=== PATIENT | female | born 1975 | race Caucasian/White ===

== ENCOUNTER 2020-07-24 11:32 | Outpatient (REF) | payer MEDICARE, MEDICAID, SELFPAY | END 2020-07-24 11:33 | disposition home or self-care (01) | LOC: HO.LAB 11:32 | PROVIDERS: PCP Internal Medicine; Visit Provider Internal Medicine | DX: Z20.828 Contact with and (suspected) exposure to other viral communicable diseases (principal) | CPT/HCPCS: C9803; U0003 ==

== ENCOUNTER → 2020-09-11 14:04 | Outpatient (BNVA) | payer MEDICARE, MEDICAID, SELFPAY | PROVIDERS: PCP Internal Medicine; Visit Provider Student in an Organized Health Care Education/Training Program | DX: Z13.89 Encounter for screening for other disorder (principal) | CPT/HCPCS: Q3014 ==

== ENCOUNTER 2020-10-01 09:16 | Outpatient (REF) | payer MEDICARE, MEDICAID, SELFPAY ==
[2020-10-01 10:15] LABS: Blood Urea Nitrogen 18 mg/dL (9-16); Estimated Glomerular Filt Rate > 60
== END 2020-10-01 09:17 | disposition home or self-care (01) ==
LOC: HO.LAB 09:16
PROVIDERS: PCP Internal Medicine; Visit Provider Otolaryngology
DX: Z01.812 Encounter for preprocedural laboratory examination (principal); D33.3 Benign neoplasm of cranial nerves
CPT/HCPCS: 36415; 82565; 84520

== ENCOUNTER 2020-10-04 09:26 | Outpatient (REF) | payer MEDICARE, MEDICAID, SELFPAY ==
--- NOTE | 2020-10-04 09:29 | MR_ITS ---
EXAMINATION: MR BRAIN WITHOUT AND WITH CONTRAST CLINICAL INFORMATION: Tinnitus and headache. Acoustic neuroma. COMPARISON: CT scan of the head and IAC 05/20/2017. TECHNIQUE: Multiplanar, multisequence MRI of the brain was obtained before and after the intravenous administration of 6.5 mL Gadavist. FINDINGS: The VII and VIII cranial nerve complexes are normal in course and caliber. No signal abnormality is visualized within the inner ear structures on the precontrast axial T1-weighted sequence. Fluid signal is preserved within the cochleae, semicircular canals, and vestibule on the high-resolution axial FIESTA sequence. No cerebellopontine angle lesion is noted. There is no abnormal labyrinthine or intracanalicular enhancement on postcontrast imaging. No diffusion abnormalities are identified to suggest an acute or subacute infarct. No mass effect or midline shift is seen. The ventricles and sulci are mildly commensurately prominent. There is a cavum velum interpositum. There are a few scattered nonspecific foci of increased FLAIR signal in the deep white matter. No extra-axial fluid collections are seen. The brainstem and cerebellum are normal. On postcontrast imaging, there is no abnormal parenchymal or leptomeningeal enhancement. No pathologic magnetic susceptibility artifact is identified on the gradient refocused acquisition. The craniovertebral junction, marrow signal, and midline structures are normal. The major intracranial flow-voids at the level of the [place] are preserved. The dural venous sinus flow-voids are maintained. The mastoid air cells and paranasal sinuses are well-aerated. MR/MR head/brain wo/w con IMPRESSION: 1. The CP angles and internal auditory canals appear normal bilaterally. 2. There are no acute bleeds or infarcts. There are no masses or areas of abnormal enhancement.
== END 2020-10-04 09:27 | disposition home or self-care (01) ==
LOC: HO.MRI 09:26
PROVIDERS: PCP Internal Medicine; Visit Provider Otolaryngology
DX: H93.11 Tinnitus, right ear (principal); H81.4 Vertigo of central origin; G44.209 Tension-type headache, unspecified, not intractable; D33.3 Benign neoplasm of cranial nerves
CPT/HCPCS: 70553; A9585

== ENCOUNTER 2021-05-08 12:23 | Outpatient (REF) | payer MEDICARE, MEDICAID, SELFPAY ==
[2021-05-08 13:49] LABS: Alanine Aminotransferase 25 U/L (0-31); Albumin Level 4.5 g/dL (3.5-5.0); Alkaline Phosphatase 83 U/L (39-117); Anion Gap 10 (12-20); Aspartate Amino Transferase 21 U/L (5-31); Bilirubin Total 0.5 mg/dL (0.0-1.0); Blood Urea Nitrogen 15 mg/dL (9-16); Carbon Dioxide 26 mmol/L (22-29); Chloride 106 mmol/L (96-108); Estimated Glomerular Filt Rate > 60; Glucose Random 79 mg/dL (60-115); Potassium 4.2 mmol/L (3.3-5.1); Sodium 138 mmol/L (135-145); Total Protein 6.9 g/dL (6.5-8.0)
== END 2021-05-08 12:24 | disposition home or self-care (01) ==
LOC: HO.LAB 12:23
PROVIDERS: PCP Internal Medicine; Visit Provider Nurse Practitioner Family
DX: M79.7 Fibromyalgia (principal); H93.19 Tinnitus, unspecified ear
CPT/HCPCS: 36415; 80053; 99212

== ENCOUNTER → 2021-12-08 09:36 | Outpatient (BNVA) | payer MEDICARE, MEDICAID, SELFPAY | PROVIDERS: PCP Internal Medicine; Visit Provider Nurse Practitioner Family | DX: M79.7 Fibromyalgia (principal); H93.19 Tinnitus, unspecified ear; Z79.899 Other long term (current) drug therapy | CPT/HCPCS: 99212 ==

== ENCOUNTER 2022-03-12 11:24 | Outpatient (REF) | payer MEDICARE, MEDICAID, SELFPAY ==
[2022-03-12 13:07] LABS: Alanine Aminotransferase 25 U/L (0-31); Albumin Level 4.3 g/dL (3.5-5.0); Alkaline Phosphatase 70 U/L (39-117); Anion Gap 7 (12-20); Aspartate Amino Transferase 21 U/L (5-31); Bilirubin Total 0.4 mg/dL (0.0-1.0); Blood Urea Nitrogen 10 mg/dL (9-16); Calcium 8.9 mg/dL (8.4-10.2); Carbon Dioxide 27 mmol/L (22-29); Chloride 109 mmol/L (96-108); Estimated Glomerular Filt Rate > 60; Glucose Random 87 mg/dL (60-115); Potassium 4.4 mmol/L (3.3-5.1); Sodium 139 mmol/L (135-145); Total Protein 6.6 g/dL (6.5-8.0)
== END 2022-03-12 11:25 | disposition home or self-care (01) ==
LOC: HO.LAB 11:24
PROVIDERS: Visit Provider Nurse Practitioner Family
DX: M79.7 Fibromyalgia (principal)
CPT/HCPCS: 36415; 80053

== ENCOUNTER → 2022-08-10 09:05 | Outpatient (BNVA) | payer OTHER, SELFPAY | PROVIDERS: PCP Internal Medicine; Referring Provider Internal Medicine; Visit Provider Nurse Practitioner Family | DX: M79.7 Fibromyalgia (principal) | CPT/HCPCS: 99212 ==

== ENCOUNTER 2023-02-16 15:08 | Outpatient (REF) | payer OTHER, SELFPAY ==
--- NOTE | ~2023-02-16 | XR_ITS ---
EXAMINATION: XR SINUSES CLINICAL INFORMATION: Sinusitis COMPARISON: None available. TECHNIQUE: 3 views of the sinuses were obtained. FINDINGS: Paranasal sinuses appear clear without air-fluid levels. No fractures are identified. No radiodense foreign bodies. XR/XR sinus min 3V IMPRESSION: Unremarkable examination.
== END 2023-02-16 15:09 | disposition home or self-care (01) ==
LOC: HO.XRAY 15:08
PROVIDERS: Visit Provider Otolaryngology
DX: J32.9 Chronic sinusitis, unspecified (principal)
CPT/HCPCS: 70220

== ENCOUNTER 2023-04-22 14:39 | Outpatient (AMB) | payer OTHER, SELFPAY ==
[2023-04-22 14:41] VITALS: BP 84/70; PULSE 71; TEMP 36.5; O2SAT 98; BMI 31.3
--- NOTE | 2023-04-22 14:56 | A.OFFVIS_ITS ---
Intake Vital Signs 04/22/23 14:41 Height 4 ft 11 in Weight 155 lb 3.287 oz BMI 31.3 BP 84/70 L Blood Pressure Location Rt brachial Position Sitting Pulse 71 Pulse Source Pulse Oximeter Temp 97.7 F Temp Source Skin Pulse Oximetry (%) 98 Intake Visit Reasons: fibromyalgia Intake Note: Here for fibromyalgia follow up. c/o right lower back pain radiating down to foot x 1.5 wks Cycle Repairer Required: No Accompanied by: Self / Same As Patient Allergies oxcarbazepine [Trileptal] Allergy (Intermediate, Verified 04/22/23 14:47) hives sumatriptan [Imitrex] Allergy (Intermediate, Verified 04/22/23 14:47) increased heart rate venlafaxine Allergy (Intermediate, Verified 04/22/23 14:47) increased heart rate Cortisone Allergy (Intermediate, Uncoded 04/22/23 14:47) visual disturbance Relpax Allergy (Intermediate, Uncoded 04/22/23 14:47) throat swelling Medication List - Last Reconciled 04/22/23 by Suresh Zhu MD albuterol sulfate 90 mcg/actuation 2 puffs inhalation Q4H PRN ascorbic acid (vitamin C) 500 mg PO DAILY bupropion HCl (Wellbutrin XL) 300 mg PO QAM bupropion HCl 150 mg PO QAM cetirizine 10 mg PO DAILY cholecalciferol (vitamin D3) 50 mcg PO DAILY diazepam 5 mg PO BID PRN docusate sodium 100 mg PO BID estradiol 1 patch transdermal 2XW famotidine (Pepcid) 20 mg PO BEDTIME PRN fluticasone propionate 50 mcg/actuation 2 sprays intranasal DAILY PRN gabapentin 300 mg PO TID galcanezumab-gnlm (Emgality Pen) mg subcut levothyroxine 50 mcg PO DAILY magnesium 200 mg PO DAILY medroxyprogesterone 2.5 mg PO DAILY metoclopramide HCl (Reglan) 10 mg PO Q6H PRN omeprazole 40 mg PO DAILY rimegepant (Nurtec ODT) 0 mg PO DAILY PRN tizanidine 4 mg PO BEDTIME PRN HPI HPI Comments History of Present Illness Details This is a 47-year-old female with a past medical history of fibromyalgia presents for follow-up. She was last seen by Vania Borrego 08/2022. Patient states that she is having a right pyriformis flare. Started about 10 days ago. She states that for the last 6-7 years she gets these episodes of right buttock pain that radiates to her thigh and right calf towards her foot. She gets these episodes about 3 times a year. Usually improved with rest and stretches.. She cannot think of any triggers. With regards for fibromyalgia she continues to take gabapentin and tizanidine. She no longer uses tramadol as it does not help PFSH Medical History Anal fissure and fistula Fibromyalgia History of abnormal cervical Pap smear Surgical History H/O foot surgery Hx of tubal ligation Family History Father HTN (hypertension) Hypothyroid Diabetes Hyperlipidemia Mother HTN (hypertension) Diabetes Hyperlipidemia Social History Household Members: Children Housing: House Alcohol intake: never Patient Tobacco Use Status: Never used Tobacco [place] [facility] [place]gias, Reports radiating pain into limb and Reports stiffness Physical Exam Vital Signs: Last Vital Signs Temp 97.7 F 04/22/23 14:41 Pulse 71 04/22/23 14:41 BP 84/70 L 04/22/23 14:41 Pulse Ox 98 04/22/23 14:41 BMI result Body Mass Index 31.3 Const General: cooperative, healthy appearing and comfortable Nutritional Appearance: overweight Orientation/consciousness: patient oriented x3 Limitations: no limitations HEENT Head: Yes normocephalic and Yes atraumatic Mouth: moist mucous membranes Resp Effort & Inspection: normal respiratory effort and able to speak in complete sentences Neuro General: patient oriented x3 Extrem Other: Bilateral her trochanteric bursa area tenderness Negative Vanessa's test bilaterally Diffuse fibromyalgia tender points Assessment & Plan Assessment & Plan (1) Piriformis syndrome of right side: Code(s): G57.01 - Lesion of sciatic nerve, right lower limb Plan: This is a 47-year-old female with fibromyalgia who presents with 1 and half week history of right buttock pain that radiates to her thigh, leg and foot. States that she gets these episodes 3 to 4 times a year and the last 1-3 weeks without a known trigger. Will prescribe a Medrol Dosepak therapeutic trial. Due to recurrence of symptoms, will refer patient to organ grinder (2) Fibromyalgia: Comment: Previous serology in 2017 with normal inflammatory markers, normal complements, negative rheumatoid factor, negative CCP, negative BRINDA, negative double-stranded DNA. Cardiolipin antibodies negative. BASILIA positive 1:80. Code(s): M79.7 - Fibromyalgia Plan: Unchanged. can continue with tizanidine 4 mg nightly and gabapentin 300 mg daily Orders: Referrals Physiatry Referral G57.01 - Lesion of sciatic nerve, right lower limb Medications: New methylprednisolone (Medrol (Emmanuel)) PO PER PKG DIR 21 ea 0RF Coding Level of Care Code Est Pt Level 3 (03402) Diagnoses Piriformis syndrome of right side G57.01 Fibromyalgia M79.7
== END 2023-04-22 15:07 | disposition home or self-care (01) ==
PROVIDERS: PCP Internal Medicine; Visit Provider Student in an Organized Health Care Education/Training Program
DX: G57.01 Lesion of sciatic nerve, right lower limb (principal); M79.7 Fibromyalgia
CPT/HCPCS: 99213

== ENCOUNTER → 2023-04-22 14:39 | Outpatient (BNVA) | payer OTHER, SELFPAY | PROVIDERS: PCP Internal Medicine; Visit Provider Student in an Organized Health Care Education/Training Program | DX: G57.01 Lesion of sciatic nerve, right lower limb (principal); M79.7 Fibromyalgia | CPT/HCPCS: 99212 ==

== ENCOUNTER 2023-05-19 10:19 | Outpatient (AMB) | payer OTHER, SELFPAY ==
[2023-05-19 10:22] VITALS: BMI 31.3
--- NOTE | 2023-05-19 10:22 | A.OFFVIS_ITS ---
Intake Vital Signs 05/19/23 10:22 Height 4 ft 11 in Weight 155 lb BMI 31.3 Intake Visit Reasons: arnp- Lesion of sciatic nerve, right lower limb Intake Note: Leisa is a 47 year old female who presents today as a new patient with complaints of sciatic pain. Hx of fibromyalgia Patient reports that she was recently seen with a television presenter who sent her here. She reports that she has performis syndrome. She was having an active flair up of the right side for about a week , this can happen multiple times a year. She finds that her pain starts in the buttock and radiates down the leg and to the front of the leg and foot. When she has these flairs ups she uses heat application, streching (home PT) and ibuprofen. Allergies oxcarbazepine [Trileptal] Allergy (Intermediate, Verified 04/22/23 14:47) hives sumatriptan [Imitrex] Allergy (Intermediate, Verified 04/22/23 14:47) increased heart rate venlafaxine Allergy (Intermediate, Verified 04/22/23 14:47) increased heart rate Cortisone Allergy (Intermediate, Uncoded 04/22/23 14:47) visual disturbance Relpax Allergy (Intermediate, Uncoded 04/22/23 14:47) throat swelling Medication List - Last Reconciled 05/19/23 by Tonya Wilson MD albuterol sulfate 90 mcg/actuation 2 puffs inhalation Q4H PRN ascorbic acid (vitamin C) 500 mg PO DAILY bupropion HCl (Wellbutrin XL) 300 mg PO QAM bupropion HCl 150 mg PO QAM cetirizine 10 mg PO DAILY cholecalciferol (vitamin D3) 50 mcg PO DAILY diazepam 5 mg PO BID PRN docusate sodium 100 mg PO BID estradiol 1 patch transdermal 2XW famotidine (Pepcid) 20 mg PO BEDTIME PRN fluticasone propionate 50 mcg/actuation 2 sprays intranasal DAILY PRN gabapentin 300 mg PO TID galcanezumab-gnlm (Emgality Pen) mg subcut levothyroxine 50 mcg PO DAILY magnesium 200 mg PO DAILY medroxyprogesterone 2.5 mg PO DAILY metoclopramide HCl (Reglan) 10 mg PO Q6H PRN ondansetron HCl 4 mg PO Q8H PRN pantoprazole 20 mg PO BID rimegepant (Nurtec ODT) 0 mg PO DAILY PRN tizanidine 4 mg PO BEDTIME PRN HPI HPI Comments History of Present Illness Details Referred by Rheumatology. Seen by Dr. Zhu 3 weeks, suspected piriformis syndrome. This would recur a few times a year, lasts a week. Today better already. History of fibromyalgia. No recent imaging, maybe last 9-10 years ago. Can't have steroid injections due to reactions (blurry vision, worsens period, no hives or anaphylaxis). When she was having pain, it was right sided. Not aware of trigger or injury. Points to SI or piriformis, radiates down to calf and foot. Denies numbness. Pain with flexing foot. Treatment done so far: NSAIDs - when there is flare up therapy - last 2 years ago, does home exercises when there is a flare up History of ankle instability. Scheduled for left ATF surgery 06/18/23. Cracking and popping knees and ankles. No current knee pain. [facility] Medical History (Updated 05/19/23 @ 10:47 by Tonya Wilson MD) History of abnormal cervical Pap smear Anal fissure and fistula Fibromyalgia Surgical History Hx of tubal ligation H/O foot surgery Family History Father HTN (hypertension) Hypothyroid Diabetes Hyperlipidemia Mother HTN (hypertension) Diabetes Hyperlipidemia Social History (Updated 05/19/23 @ 10:30 by Tracy Hahn [facility]) Household Members: Children Housing: House Alcohol intake: never Patient Tobacco Use Status: Never used Tobacco Current occupational status: disabled Review of Systems Const All systems reviewed & are unremarkable except as noted in HPI and below Physical Exam Vital Signs: BMI result Body Mass Index 31.3 Constitutional: Patient appears to be in no acute distress, well nourished and well developed. Patient was appropriately conversant and oriented. Good historian. MSK: Tightness in upper trapezius. No specific abnormalities found on inspection of the spine and all extremities. No pain with palpation over the lumbar area. Indicates tender area is close to the right SI joint and vicinity of right piriformis. Lumbar ROM was full. Bilateral hip, knee and ankle ROM WNL. No ligamentous laxity or crepitance. No increased effusion. Straight-leg raising test negative. FABERE test positive right buttocks pain. Piriformis test is mildly positive right. Strength is 5/5 in all muscle groups tested. No increased tone noted. Neurological: Mood appears normal, good affect, and appropriate for the circumstances. Neurologic examination of the upper and lower extremities was nonfocal with intact sensation, muscle stretch reflexes and without focal motor deficits. Cheung?s negative bilaterally. Babinski was down going bilaterally. Clonus was negative. Gait is non-antalgic without loss of balance. Patient was able to perform heel walk and toe walk. Results Reviewed Results Reviewed: 05/19/23 10:57 Lidocaine HCl 2 % MPF [Xylocaine 2 % MPF] 5 ml .ROUTE .[facility] I reviewed records from the following: Rheumatology Dr. Zhu Assessment & Plan Assessment & Plan (1) Piriformis syndrome of right side: Code(s): G57.01 - Lesion of sciatic nerve, right lower limb (2) Sacroiliac joint dysfunction of right side: Code(s): M53.3 - Sacrococcygeal disorders, not elsewhere classified Plan Patient had episode of right piriformis syndrome versus SI joint dysfunction. Pain is now resolved. No neurologic deficits on exam. If pain recurs, usual first-line treatment is ice and NSAIDs. She may try [id number] Lidoderm cream. She may call our office for severe pain and with about possibility of trigger point injection with lidocaine, no steroid. Assessment and plan discussed with patient, and patient was agreeable. All questions were answered thoroughly. Call if with pain or issues or questions. Tonya Wilson MD, ERMI Board Certified, [place] [employer] and Rehabilitation (ABPMR) Board Certified, [place] [employer] Electro[employer]ostic [employer] (ABEM) Coding Level of Care Code New Pt Level 3 (23571) Diagnoses Piriformis syndrome of right side G57.01 Sacroiliac joint dysfunction of right side M53.3
== END 2023-05-19 12:09 | disposition home or self-care (01) ==
PROVIDERS: PCP Internal Medicine; Visit Provider Physical Medicine & Rehabilitation
DX: G57.01 Lesion of sciatic nerve, right lower limb (principal); M53.3 Sacrococcygeal disorders, not elsewhere classified
CPT/HCPCS: 99203

== ENCOUNTER → 2023-05-19 10:19 | Outpatient (BNVA) | payer OTHER, SELFPAY | PROVIDERS: PCP Internal Medicine; Visit Provider Physical Medicine & Rehabilitation ==

== ENCOUNTER 2023-10-07 09:55 | Outpatient (AMB) | payer OTHER, SELFPAY ==
--- NOTE | 2023-10-07 10:06 | A.OFFVIS_ITS ---
Intake Vital Signs 10/07/23 10:09 Height 4 ft 11 in Weight 150 lb 9.211 oz BMI 30.4 BP 112/66 Blood Pressure Location Lt brachial Position Sitting Pulse 83 Pulse Source Pulse Oximeter Pulse Oximetry (%) 98 Oxygen Delivery Method Room Air Intake Visit Reasons: FMS Intake Note: Patient last seen 04/22/23 presents today for follow up. Reports new surgery 06/28/23 ligament repair left ankle done at [facility]. Reports severe muscle spasms went to PCP and [facility] ED x2. PCP prescibed diclofenac and baclofen prn. Creeler Required: No Accompanied by: Self / Same As Patient Allergies oxcarbazepine [Trileptal] Allergy (Intermediate, Verified 10/07/23 10:13) hives sumatriptan [Imitrex] Allergy (Intermediate, Verified 10/07/23 10:13) increased heart rate venlafaxine Allergy (Intermediate, Verified 10/07/23 10:13) increased heart rate Cortisone Allergy (Intermediate, Uncoded 10/07/23 10:13) visual disturbance Relpax Allergy (Intermediate, Uncoded 10/07/23 10:13) throat swelling Medication List - Last Reconciled 10/07/23 by Suresh Zhu MD albuterol sulfate 90 mcg/actuation 2 puffs inhalation Q4H PRN ascorbic acid (vitamin C) 500 mg PO DAILY baclofen 10 mg PO TID bupropion HCl (Wellbutrin XL) 300 mg PO QAM bupropion HCl 150 mg PO QAM cetirizine 10 mg PO DAILY cholecalciferol (vitamin D3) 50 mcg PO DAILY diazepam 5 mg PO BID PRN diclofenac sodium 50 mg PO BID diclofenac sodium 1% topical docusate sodium 100 mg PO BID estradiol 1 patch transdermal 2XW famotidine (Pepcid) 20 mg PO BEDTIME PRN fluticasone propionate 50 mcg/actuation 2 sprays intranasal DAILY PRN gabapentin 300 mg PO TID levothyroxine 50 mcg PO DAILY magnesium 200 mg PO DAILY medroxyprogesterone 2.5 mg PO DAILY metoclopramide HCl (Reglan) 10 mg PO Q6H PRN onabotulinumtoxinA (Botox) intradermal [id number] ondansetron HCl 4 mg PO Q8H PRN pantoprazole 20 mg PO BID tizanidine 4 mg PO BEDTIME PRN ubrogepant (Ubrelvy) mg PO HPI HPI Comments History of Present Illness Details This is a 48-year-old female with fibromyalgia who presents for follow- up. She states that about a month ago she started having abrupt onset of lower back spasms. The pain was so severe. She did not recall any inciting trauma injury or overuse. She went to the emergency room and had an x-ray. She was given NSAIDs and muscle relaxants. She then followed up with her PCP who prescribed her diclofenac and baclofen with some relief. She also states that she had left ankle surgery June/2023 for ligament repair. She is using a cane now. States that today she continues to have bilateral lumbar paraspinal muscle pain and spasms as well as pain in the right upper neck, shoulder area. The pain radiates to her head and shoulders. Patient states that she is having a right pyriformis flare. Started about 10 days ago. She states that for the last 6-7 years she gets these episodes of right buttock pain that radiates to her thigh and right calf towards her foot. She gets these episodes about 3 times a year. Usually improved with rest and stretches.. She cannot think of any triggers. With regards for fibromyalgia she continues to take gabapentin and tizanidine. She no longer uses tramadol as it does not help [facility] Medical History History of abnormal cervical Pap smear Anal fissure and fistula Fibromyalgia Surgical History Hx of tubal ligation H/O foot surgery Family History Father HTN (hypertension) Hypothyroid Diabetes Hyperlipidemia Mother HTN (hypertension) Diabetes Hyperlipidemia Social History Household Members: Children Housing: House Alcohol intake: never Patient Tobacco Use Status: Never used Tobacco Current occupational status: disabled Review of Systems ENT Reports neck pain Musc Reports arthralgias, Reports neck pain, Reports radiating pain into limb and Reports stiffness Physical Exam Vital Signs: Last Vital Signs Pulse 83 10/07/23 10:09 BP 112/66 10/07/23 10:09 Pulse Ox 98 10/07/23 10:09 Oxygen Delivery Method Room Air 10/07/23 10:09 BMI result Body Mass Index 30.4 Const General: cooperative, healthy appearing and comfortable Nutritional Appearance: overweight Orientation/consciousness: patient oriented x3 Limitations: ambulation with cane HEENT Head: Yes normocephalic and Yes atraumatic Mouth: moist mucous membranes Neck Other: Normal neck range of motion Negative Spurling's test bilaterally Taught tender muscle band in the right upper trapezius area. Resp Effort & Inspection: normal respiratory effort and able to speak in complete sentences Back/Spine/Pelvis Other: Bilateral number paraspinal muscles trigger points Neuro General: patient oriented x3 Extrem Other: Diffuse fibromyalgia tender points Office Procedures Joint Injection/Drain Joint Injection/Drain Details: Right trapezius trigger points Bilateral lumbar paraspinal paraspinal trigger points Prep: site was prepped using sterile technique and ethochloride spray was applied Procedure: The patient tolerated the procedure well Coding Details: The area over the myofascial spasm on the right trapezius muscle was prepped with ChloraPrep utilizing sterile technique. After isolating it between two palpating fingertips a 27-gauge needle was placed in the center of the myofascial tenderness and a negative aspiration was performed. Then 2.0 cc of 1% lidocaine was injected. The area over the myofascial spasm on the right lumbar paraspinal muscle and left lumbar paraspinal muscle was prepped with ChloraPrep utilizing sterile technique. After isolating it between two palpating fingertips a 27-gauge needle was placed in the center of the myofascial tenderness and a negative aspiration was performed. Then 2.0 cc of 1% lidocaine was injected into each trigger point. The patient tolerated the procedure well without any apparent difficulties or complications. Additional procedure code (CPT) needed (Trigger point x3) Assessment & Plan Assessment & Plan (1) Fibromyalgia: Comment: Previous serology in 2017 with normal inflammatory markers, normal complements, negative rheumatoid factor, negative CCP, negative BRINDA, negative double-stranded DNA. Cardiolipin antibodies negative. BASILIA positive 1:80. Code(s): M79.7 - Fibromyalgia Plan: Symptoms a little bit worse these days with multiple trigger points. Patient takes tizanidine 4 mg nightly and gabapentin 300 mg 2 to 3 times a day. On the bad days she has been using baclofen and diclofenac prescribed by her PCP. She does not combined baclofen with tizanidine. Follow-up in 4 month (2) Trigger point: Code(s): M79.10 - Myalgia, unspecified site Plan: With patient's consent, trigger points over the right trapezius and bilateral paraspinal muscles were injected with lidocaine today Plan I spent 26 minutes reviewing patient's chart, evaluating patient, counseling patient and documenting in the chart Orders: Orders AMB Joint Injection/Aspiration Today M79.10 - Myalgia, unspecified site Coding Level of Care Code Est Pt Level 4 (81404) Diagnoses Fibromyalgia M79.7 Trigger point M79.10
[2023-10-07 10:09] VITALS: BP 112/66; PULSE 83; O2SAT 98; BMI 30.4
== END 2023-10-07 10:56 | disposition home or self-care (01) ==
PROVIDERS: PCP Internal Medicine; Visit Provider Student in an Organized Health Care Education/Training Program
DX: M79.7 Fibromyalgia (principal)
CPT/HCPCS: 99214

== ENCOUNTER → 2023-10-07 09:55 | Outpatient (BNVA) | payer OTHER, SELFPAY | PROVIDERS: PCP Internal Medicine; Visit Provider Student in an Organized Health Care Education/Training Program | DX: M79.7 Fibromyalgia (principal); M79.18 Myalgia, other site | CPT/HCPCS: 20552; 99212 ==

== ENCOUNTER 2024-01-18 09:35 | Outpatient (REF) | payer OTHER, SELFPAY ==
--- NOTE | ~2024-01-18 | XR_ITS ---
EXAMINATION: XR LUMBOSACRAL SPINE CLINICAL INFORMATION: Dorsalgia, unspecified COMPARISON: None available. TECHNIQUE: Three views of the lumbosacral spine. FINDINGS: There 5 nonrib-bearing lumbar-type vertebral bodies. There is prominence of the transverse processes of L5. The height of the vertebral bodies is well-maintained. There is minimal loss of disc space height at L3-L4. There is no spondylolisthesis. There is a large amount stool within the colon which may be due to constipation. XR/XR lumbar spine 2-3V IMPRESSION: 1. Minimal degenerative disc disease at L3-L4. 2. No acute bony abnormality. 3. Constipation.
--- NOTE | ~2024-01-18 | XR_ITS ---
EXAMINATION: XR SACROILIAC JOINTS CLINICAL INFORMATION: Pain COMPARISON: None available. TECHNIQUE: 3 views of the sacroiliac joints FINDINGS: Bones and soft tissues are normal. No fracture. Alignment is anatomic. Sacroiliac joint spaces are well-maintained without erosions or surrounding sclerosis. XR/XR sacroiliac joint min 3V IMPRESSION: Normal sacroiliac joints.
== END 2024-01-18 09:36 | disposition home or self-care (01) ==
LOC: HO.HOSX 09:35
PROVIDERS: PCP Internal Medicine; Visit Provider Physical Medicine & Rehabilitation
DX: M53.3 Sacrococcygeal disorders, not elsewhere classified (principal); M54.16 Radiculopathy, lumbar region
CPT/HCPCS: 72100; 72202; 99212

== ENCOUNTER 2024-01-18 09:35 | Outpatient (AMB) | payer OTHER, SELFPAY ==
--- NOTE | 2024-01-18 09:47 | A.OFFVIS_ITS ---
Vital Signs 01/18/24 09:55 Height 4 ft 11 in Weight 150 lb BMI 30.3 Intake Visit Reasons: OV-Lesion of sciatic nerve, right lower limb Intake Note: Leisa is a 47 year old female who presents today for a follow up of piriformis syndrome of right side. Patient reports that she was having a flare up last week however she has felt an improvement in her pain. States she is currently not in pain however she continues to have a discomfort that travel down the lateral aspect of leg. Finds that ibuprofen and at home stretching provided her with some relief. Allergies oxcarbazepine [Trileptal] Allergy (Intermediate, Verified 01/18/24 09:55) hives sumatriptan [Imitrex] Allergy (Intermediate, Verified 01/18/24 09:55) increased heart rate venlafaxine Allergy (Intermediate, Verified 01/18/24 09:55) increased heart rate Cortisone Allergy (Intermediate, Uncoded 01/18/24 09:55) visual disturbance Relpax Allergy (Intermediate, Uncoded 01/18/24 09:55) throat swelling Medication List - Last Reconciled 01/18/24 by Tonya Wilson MD albuterol sulfate 90 mcg/actuation 2 puffs inhalation Q4H PRN ascorbic acid (vitamin C) 500 mg PO DAILY baclofen 10 mg PO TID bupropion HCl XL (Wellbutrin XL) 300 mg PO QAM bupropion HCl XL 150 mg PO QAM cetirizine 10 mg PO DAILY cholecalciferol (vitamin D3) 50 mcg PO DAILY diazepam 5 mg PO BID PRN diclofenac sodium 50 mg PO BID diclofenac sodium 1% topical docusate sodium 100 mg PO BID estradiol 1 patch transdermal 2XW famotidine (Pepcid) 20 mg PO BEDTIME PRN fluticasone propionate 50 mcg/actuation 2 sprays intranasal DAILY PRN gabapentin 300 mg PO TID levothyroxine 50 mcg PO DAILY magnesium 200 mg PO DAILY medroxyprogesterone 2.5 mg PO DAILY metoclopramide HCl (Reglan) 10 mg PO Q6H PRN onabotulinumtoxinA (Botox) intradermal [id number] ondansetron HCl 4 mg PO Q8H PRN pantoprazole 20 mg PO BID tizanidine 4 mg PO BEDTIME PRN ubrogepant (Ubrelvy) mg PO HPI Comments Details: Referred by Rheumatology. Seen by Dr. Zhu who suspected piriformis syndrome. By the time I saw her, patient was no longer having pain. It was right sided. Not aware of trigger or injury. Points to SI or piriformis, radiates down to calf and foot. Denied numbness. History of fibromyalgia. Can't have steroid injections due to reactions (blurry vision, worsens period, no hives or anaphylaxis). History of ankle instability. Reports new surgery 06/28/23 ligament repair left ankle done at [facility]. ER visits from lower back axial pain last August, had gone to ER. Completed PT, referred by PCP. Treated for lower back and hip. She had seen rheumatology last October - trigger point injections to trapezius and lumbar paraspinals were done. Patient says that the back pain at that time was just aches show. Had episode last week from right SI/buttocks area that radiates to right foot. Pain improved but discomfort on right leg. On separate issue, been having tremors on right hand and right leg. PCP has ordered MRI brain to rule out MS, being done tomorrow. Also sees Chiropractor for the upper/lower back pain. [facility] Medical History History of abnormal cervical Pap smear Anal fissure and fistula Fibromyalgia Surgical History Hx of tubal ligation H/O foot surgery Family History Father HTN (hypertension) Hypothyroid Diabetes Hyperlipidemia Mother HTN (hypertension) Diabetes Hyperlipidemia Social History Household Members: Children Housing: House Alcohol intake: never Patient Tobacco Use Status: Never used Tobacco Current occupational status: disabled Physical Exam Vital Signs: BMI result Body Mass Index 30.3 Constitutional: Patient appears to be in no acute distress, well nourished and well developed. Patient was appropriately conversant and oriented. Good historian. MSK: Right SI joint tender. Right piriformis tender. Slight tenderness over ITB. Lumbar ROM was full. Bilateral hip, knee and ankle ROM WNL. No ligamentous laxity or crepitance. No increased effusion. Straight-leg raising test negative. Strength is 5/5 in all muscle groups tested. No increased tone noted. Neurological: Mood appears normal, good affect, and appropriate for the circumstances. Neurologic examination of the upper and lower extremities was nonfocal with intact sensation, muscle stretch reflexes and without focal motor deficits. Babinski was down going bilaterally. Clonus was negative. Gait is non-antalgic without loss of balance. Results Reviewed Results Reviewed: I reviewed records from the following: Rheumatology Dr. Zhu Assessment & Plan Assessment & Plan (1) Right lumbar radiculitis: Code(s): M54.16 - Radiculopathy, lumbar region Category: Medical (2) Sacroiliac joint dysfunction of right side: Code(s): M53.3 - Sacrococcygeal disorders, not elsewhere classified Category: Medical Plan Area of pain is on right SI region, radiating to piriformis/gluteus, down to ITB. Discussed with patient that this radiation pattern is as expected with SI joint dysfunction. I do want to rule out lumbar radiculitis. Sending for x-ray lumbar spine to look at L5-S1 disc space. If there is decreased disc space that could be attributed to right L5 radiculitis or disc herniation, then we will need an MRI. If x-ray is negative for such, then most likely diagnosis is truly SI joint dysfunction. For which we might consider SI joint injection under pain management. Also getting x-ray of SI joint/pelvis to rule out inflammation or arthritis on the joint itself. Continue chiropractor. Gave her a list of exercises she can do at home. PCP has ordered MRI brain for other issues. I did mention injection to her, but on chart review noted that she has had poor reactions to injections in the past. If we are to consider injections, we will need discussion with patient 1st. Assessment and plan discussed with patient, and patient was agreeable. All questions were answered thoroughly. We will touch base with patient through patient portal. Tonya Wilson MD, REMI Board Certified, [place] [employer] and Rehabilitation (ABPMR) Board Certified, [place] Board [employer] Electrodiagnostic Medicine (ABEM) Orders: Orders XR lumbar spine 2-3V Today M53.3 - Sacrococcygeal disorders, not elsewhere classified, M54.16 - Radiculopathy, lumbar region, M54.9 - Dorsalgia, unspecified XR sacroiliac joint min 3V Today M53.3 - Sacrococcygeal disorders, not elsewhere classified, M54.16 - Radiculopathy, lumbar region Coding Level of Care Code Est Pt Level 4 (62894) Diagnoses Right lumbar radiculitis M54.16 Sacroiliac joint dysfunction of right side M53.3
[2024-01-18 09:55] VITALS: BMI 30.3
== END 2024-01-18 10:57 | disposition home or self-care (01) ==
PROVIDERS: PCP Internal Medicine; Visit Provider Physical Medicine & Rehabilitation
DX: M54.16 Radiculopathy, lumbar region (principal); M53.3 Sacrococcygeal disorders, not elsewhere classified
CPT/HCPCS: 99213

== ENCOUNTER 2024-02-08 09:00 | Outpatient (AMB) | payer OTHER, SELFPAY ==
[2024-02-08 09:22] VITALS: BP 108/66; PULSE 71; O2SAT 98; BMI 31.0
--- NOTE | 2024-02-08 09:22 | A.OFFVIS_ITS ---
Vital Signs 02/08/24 09:22 Height 4 ft 11 in Weight 153 lb 7.068 oz BMI 31.0 BP 108/66 Blood Pressure Location Rt brachial Position Sitting Pulse 71 Pulse Source Pulse Oximeter Pulse Oximetry (%) 98 Oxygen Delivery Method Room Air Intake Visit Reasons: FMS Intake Note: Reports tremors and facial numbness on R side, mild vision changes x2 months. Right shoulder pain [employer] Professor Required: No Accompanied by: Self / Same As Patient Allergies oxcarbazepine [Trileptal] Allergy (Intermediate, Verified 02/08/24 09:34) hives sumatriptan [Imitrex] Allergy (Intermediate, Verified 02/08/24 09:34) increased heart rate venlafaxine Allergy (Intermediate, Verified 02/08/24 09:34) increased heart rate Cortisone Allergy (Intermediate, Uncoded 02/08/24 09:34) visual disturbance Relpax Allergy (Intermediate, Uncoded 02/08/24 09:34) throat swelling Medication List - Last Reconciled 02/08/24 by Suresh Zhu MD albuterol sulfate 90 mcg/actuation 2 puffs inhalation Q4H PRN ascorbic acid (vitamin C) 500 mg PO DAILY bupropion HCl XL (Wellbutrin XL) 300 mg PO QAM bupropion HCl XL 150 mg PO QAM cetirizine 10 mg PO DAILY cholecalciferol (vitamin D3) 50 mcg PO DAILY diazepam 5 mg PO BID PRN diclofenac sodium 50 mg PO BID diclofenac sodium 1% topical docusate sodium 100 mg PO BID estradiol 1 patch transdermal 2XW famotidine (Pepcid) 20 mg PO BEDTIME PRN fluticasone propionate 50 mcg/actuation 2 sprays intranasal DAILY PRN gabapentin 300 mg PO TID levothyroxine 50 mcg PO DAILY magnesium 200 mg PO DAILY medroxyprogesterone 2.5 mg PO DAILY metoclopramide HCl (Reglan) 10 mg PO Q6H PRN onabotulinumtoxinA (Botox) intradermal [id number] ondansetron HCl 4 mg PO Q8H PRN pantoprazole 20 mg PO BID tizanidine 4 mg PO BEDTIME PRN ubrogepant (Ubrelvy) mg PO HPI Comments Details: This is a 48-year-old female with fibromyalgia who presents for follow-up. She states that over the last 2 months she has been having tremors affecting the right side of her body including her face, her right arm and right lower extrem ity associated with numbness. She stated that her PCP ordered a brain MRI to evaluate for MS and she was told that it was unremarkable. Patient was having a flare-up of her right lower back pain that radiated down her lower extremity. She was evaluated by Dr. Cheatham x-rays of L-spine and SI joints were done and were unremarkable except for arthritic changes at the L-spine. She stated that this pain is better now. Patient had reactions to steroid injections in the past. She also stated that she has been having right shoulder pain recently as well. Patient states that she is having a right pyriformis flare. Started about 10 days ago. She states that for the last 6-7 years she gets these episodes of right buttock pain that radiates to her thigh and right calf towards her foot. She gets these episodes about 3 times a year. Usually improved with rest and stretches.. She cannot think of any triggers. With regards for fibromyalgia she continues to take gabapentin and tizanidine. She no longer uses tramadol as it does not help [facility] Medical History History of abnormal cervical Pap smear Anal fissure and fistula Fibromyalgia Surgical History Hx of tubal ligation H/O foot surgery Family History Father HTN (hypertension) Hypothyroid Diabetes Hyperlipidemia Mother HTN (hypertension) Diabetes Hyperlipidemia Social History Household Members: Children Housing: House Alcohol intake: never Patient Tobacco Use Status: Never used Tobacco Current occupational status: disabled Review of Systems Musc Reports back pain, Reports arthralgias and Reports radiating pain into limb Physical Exam Vital Signs: Last Vital Signs Pulse 71 02/08/24 09:22 BP 108/66 02/08/24 09:22 Pulse Ox 98 02/08/24 09:22 Oxygen Delivery Method Room Air 02/08/24 09:22 BMI result Body Mass Index 31.0 Const General: cooperative, healthy appearing and comfortable Nutritional Appearance: overweight Orientation/consciousness: patient oriented x3 Limitations: ambulation with cane HEENT Head: Yes normocephalic and Yes atraumatic Mouth: moist mucous membranes Neck Other: Normal neck range of motion Resp Effort & Inspection: normal respiratory effort and able to speak in complete sentences Neuro General: patient oriented x3 Extrem Other: Multiple fibromyalgia tender points Normal range of motion of shoulders Negative rotator cuff provocative maneuvers bilaterally Negative Speed's test bilaterally Right lower lumbar paraspinal muscle tenderness Positive straight leg raise test on the right Assessment & Plan Assessment & Plan (1) Fibromyalgia: Comment: Previous serology in 2017 with normal inflammatory markers, normal complements, negative rheumatoid factor, negative CCP, negative BRINDA, negative double-stranded DNA. Cardiolipin antibodies negative. BASILIA positive 1:80. Code(s): M79.7 - Fibromyalgia Category: Medical Plan: Continue with gabapentin 300 mg t.i.d. and tizanidine 4 mg nightly as needed. (2) Right lumbar radiculitis: Code(s): M54.16 - Radiculopathy, lumbar region Category: Medical Plan: Symptoms improved now after physical therapy. Patient stated that she had side effects to steroid injections in the past. (3) Tremors of nervous system: Code(s): R25.1 - Tremor, unspecified Category: Medical Plan: Patient reporting symptoms of tremors affecting the right side of her body for approximately 2 months. Per patient a brain MRI was done and was negative. Consider neurology evaluation Plan I spent 26 minutes reviewing patient's chart, evaluating patient, counseling patient and documenting in the chart Coding Level of Care Code Est Pt Level 3 (84167) Diagnoses Fibromyalgia M79.7 Right lumbar radiculitis M54.16 Tremors of nervous system R25.1
== END 2024-02-08 09:45 | disposition home or self-care (01) ==
PROVIDERS: PCP Internal Medicine; Visit Provider Student in an Organized Health Care Education/Training Program
DX: M79.7 Fibromyalgia (principal); M54.16 Radiculopathy, lumbar region; R25.1 Tremor, unspecified
CPT/HCPCS: 99213

== ENCOUNTER → 2024-02-08 09:00 | Outpatient (BNVA) | payer OTHER, SELFPAY | PROVIDERS: PCP Internal Medicine; Visit Provider Student in an Organized Health Care Education/Training Program | DX: M79.7 Fibromyalgia (principal); M54.16 Radiculopathy, lumbar region; R25.1 Tremor, unspecified; Z79.899 Other long term (current) drug therapy | CPT/HCPCS: 99212 ==

== ENCOUNTER 2024-02-22 08:59 | Outpatient (AMB) | payer OTHER, SELFPAY ==
--- NOTE | 2024-02-22 09:02 | A.OFFVIS_ITS ---
Vital Signs 02/22/24 09:11 Height 4 ft 11 in Weight 153 lb BMI 30.9 Intake Visit Reasons: OV - right SI joint Intake Note: Leisa is a 48 year old female who presents today for follow up on right lumbar radiculitis and sacroiliac joint dysfunction of right side. Patient reports intermittent throbbing pain that radiates down the lateral aspect of leg to her foot however currently she has no pain. Allergies oxcarbazepine [Trileptal] Allergy (Intermediate, Verified 02/22/24 09:10) hives sumatriptan [Imitrex] Allergy (Intermediate, Verified 02/22/24 09:10) increased heart rate venlafaxine Allergy (Intermediate, Verified 02/22/24 09:10) increased heart rate Cortisone Allergy (Intermediate, Uncoded 02/22/24 09:10) visual disturbance Relpax Allergy (Intermediate, Uncoded 02/22/24 09:10) throat swelling Medication List - Last Reconciled 02/22/24 by Tonya Wilson MD albuterol sulfate 90 mcg/actuation 2 puffs inhalation Q4H PRN ascorbic acid (vitamin C) 500 mg PO DAILY bupropion HCl XL (Wellbutrin XL) 300 mg PO QAM bupropion HCl XL 150 mg PO QAM cetirizine 10 mg PO DAILY cholecalciferol (vitamin D3) 50 mcg PO DAILY diazepam 5 mg PO BID PRN diclofenac sodium 50 mg PO BID diclofenac sodium 1% topical docusate sodium 100 mg PO BID estradiol 1 patch transdermal 2XW famotidine (Pepcid) 20 mg PO BEDTIME PRN fluticasone propionate 50 mcg/actuation 2 sprays intranasal DAILY PRN gabapentin 300 mg PO TID levothyroxine 50 mcg PO DAILY magnesium 200 mg PO DAILY medroxyprogesterone 2.5 mg PO DAILY metoclopramide HCl (Reglan) 10 mg PO Q6H PRN onabotulinumtoxinA (Botox) intradermal [id number] ondansetron HCl 4 mg PO Q8H PRN pantoprazole 20 mg PO BID tizanidine 4 mg PO BEDTIME PRN ubrogepant (Ubrelvy) mg PO HPI Comments Details: Initially referred by Rheumatology. Seen by Dr. Zhu who suspected piriformis syndrome. By the time I saw her, patient was no longer having pain. It was right sided. Not aware of trigger or injury. Points to SI or piriformis, radiates down to calf and foot. Denied numbness. History of fibromyalgia. Can't have steroid injections due to reactions (blurry vision, worsens period, no hives or anaphylaxis). History of ankle instability. Had surgery 06/28/23 ligament repair left ankle done at [facility]. ER visits for lower back axial pain last August, had gone to ER. Completed PT, referred by PCP. Treated for lower back and hip. She had seen rheumatology last October - trigger point injections to trapezius and lumbar paraspinals were done. When I saw her she was having right SI joint pain. No longer painful per patient. No more radiation to leg. She had finished PT and still going to chiro. She complains this time of grinding on right lateral hip, does not radiate to groin, non radicular. She thinks started after surgery last June on left ankle and she was putting more weight on right. [facility] Medical History History of abnormal cervical Pap smear Anal fissure and fistula Fibromyalgia Surgical History Hx of tubal ligation H/O foot surgery Family History (Reviewed 02/08/24 @ 09:34 by Rosibel Bearden [facility]) Father HTN (hypertension) Hypothyroid Diabetes Hyperlipidemia Mother HTN (hypertension) Diabetes Hyperlipidemia Social History Household Members: Children Housing: House Alcohol intake: never Patient Tobacco Use Status: Never used Tobacco Current occupational status: disabled Physical Exam Vital Signs: BMI result Body Mass Index 30.9 Constitutional: Patient appears to be in no acute distress, well nourished and well developed. Patient was appropriately conversant and oriented. Good historian. MSK: Right SI joint tender. Right piriformis tender. Milder tenderness on left SI joint. Right GT slightly tender. Lumbar ROM was full. Bilateral hip, knee and ankle ROM WNL. No ligamentous laxity or crepitance. No increased effusion. Straight-leg raising test negative. Fabere positive right hip pain. Strength is 5/5 in all muscle groups tested. No increased tone noted. Neurological: Mood appears normal, good affect, and appropriate for the circumstances. Neurologic examination of the upper and lower extremities was nonfocal with intact sensation, muscle stretch reflexes and without focal motor deficits. Babinski was down going bilaterally. Clonus was negative. Gait is non-antalgic without loss of balance. Results Reviewed Results Reviewed: Ordering Physician: Tonya Corrales Date of Service: 01/18/24 Procedure(s): XR sacroiliac joint min 3V Accession Number(s): [id number] cc: Idania De La Torre MD; Tonya Mial~ EXAMINATION: XR SACROILIAC JOINTS CLINICAL INFORMATION: Pain COMPARISON: None available. TECHNIQUE: 3 views of the sacroiliac joints FINDINGS: Bones and soft tissues are normal. No fracture. Alignment is anatomic. Sacroiliac joint spaces are well-maintained without erosions or surrounding sclerosis. XR/XR sacroiliac joint min 3V IMPRESSION: Normal sacroiliac joints. Ordering Physician: Tonya Corrales Date of Service: 01/18/24 Procedure(s): XR lumbar spine 2-3V Accession Number(s): [id number] cc: Idania De La Torre MD; Tonya Mial~ EXAMINATION: XR LUMBOSACRAL SPINE CLINICAL INFORMATION: Dorsalgia, unspecified COMPARISON: None available. TECHNIQUE: Three views of the lumbosacral spine. FINDINGS: There 5 nonrib-bearing lumbar-type vertebral bodies. There is prominence of the transverse processes of L5. The height of the vertebral bodies is well-maintained. There is minimal loss of disc space height at L3-L4. There is no spondylolisthesis. There is a large amount stool within the colon which may be due to constipation. XR/XR lumbar spine 2-3V IMPRESSION: 1. Minimal degenerative disc disease at L3-L4. 2. No acute bony abnormality. 3. Constipation. Assessment & Plan Assessment & Plan (1) Sacroiliac joint dysfunction of right side: Code(s): M53.3 - Sacrococcygeal disorders, not elsewhere classified Category: Medical (2) Myofascial pain: Code(s): M79.18 - Myalgia, other site Category: Medical (3) Fibromyalgia: Comment: Previous serology in 2017 with normal inflammatory markers, normal complements, negative rheumatoid factor, negative CCP, negative BRINDA, negative double-stranded DNA. Cardiolipin antibodies negative. BASILIA positive 1:80. Code(s): M79.7 - Fibromyalgia Category: Medical Plan Suspect that pain is still coming from right SI joint. However also having some myofascial pain on gluteus and possibly quadratus lumborum muscles. Recommend trial of trigger point injections. Patient eager to proceed. We will schedule. We might still need to send her for right SI joint injection under pain management if does not improve with chiropractor and trigger point injections. She wants to be seen for separate problem of right shoulder pain, we will schedule. Assessment and plan discussed with patient, and patient was agreeable. All questions were answered thoroughly. Tonya Wilson MD, REMI Board Certified, [place] [employer] and Rehabilitation (ABPMR) Board Certified, [place] [employer] Electrodiagnostic [employer] (ABEM) Coding Level of Care Code Est Pt Level 4 (01399) Diagnoses Sacroiliac joint dysfunction of right side M53.3 Myofascial pain M79.18 Fibromyalgia M79.7
[2024-02-22 09:11] VITALS: BMI 30.9
== END 2024-02-22 09:29 | disposition home or self-care (01) ==
PROVIDERS: PCP Internal Medicine; Visit Provider Physical Medicine & Rehabilitation
DX: M53.3 Sacrococcygeal disorders, not elsewhere classified (principal); M79.7 Fibromyalgia
CPT/HCPCS: 99213

== ENCOUNTER → 2024-02-22 08:59 | Outpatient (BNVA) | payer OTHER, SELFPAY | PROVIDERS: PCP Internal Medicine; Visit Provider Physical Medicine & Rehabilitation | DX: M53.3 Sacrococcygeal disorders, not elsewhere classified (principal); M79.18 Myalgia, other site; M79.7 Fibromyalgia | CPT/HCPCS: 99212 ==

== ENCOUNTER 2024-05-17 09:17 | Outpatient (AMB) | payer OTHER, SELFPAY ==
--- NOTE | 2024-05-17 09:19 | A.OFFVIS_ITS ---
Intake Visit Reasons: New Prob- right shoulder pain Intake Note: Leisa is a 48 year old female who presents today for a new problem visit regarding her right shoulder pain. Patient reports this started a few months ago with no known injury. Pt states the pain radiates up the right side of her neck. Pt states the pain is constant but gets worse with movement of her shoulder. Pt states she cannot lay on her shoulder. Pt denies any previous injections/surgeries/ or PT. Allergies oxcarbazepine [Trileptal] Allergy (Intermediate, Verified 05/17/24 09:20) hives sumatriptan [Imitrex] Allergy (Intermediate, Verified 05/17/24 09:20) increased heart rate venlafaxine Allergy (Intermediate, Verified 05/17/24 09:20) increased heart rate Cortisone Allergy (Intermediate, Uncoded 05/17/24 09:20) visual disturbance Relpax Allergy (Intermediate, Uncoded 05/17/24 09:20) throat swelling Medication List - Last Reconciled 05/17/24 by Tonya Wilson MD albuterol sulfate 90 mcg/actuation 2 puffs inhalation Q4H PRN ascorbic acid (vitamin C) 500 mg PO DAILY bupropion HCl XL (Wellbutrin XL) 300 mg PO QAM bupropion HCl XL 150 mg PO QAM cetirizine 10 mg PO DAILY cholecalciferol (vitamin D3) 50 mcg PO DAILY diazepam 5 mg PO BID PRN diclofenac sodium 50 mg PO BID diclofenac sodium 1% topical docusate sodium 100 mg PO BID estradiol 1 patch transdermal 2XW famotidine (Pepcid) 20 mg PO BEDTIME PRN fluticasone propionate 50 mcg/actuation 2 sprays intranasal DAILY PRN gabapentin 300 mg PO TID levothyroxine 50 mcg PO DAILY magnesium 200 mg PO DAILY medroxyprogesterone 2.5 mg PO DAILY metoclopramide HCl (Reglan) 10 mg PO Q6H PRN onabotulinumtoxinA (Botox) intradermal [id number] ondansetron HCl 4 mg PO Q8H PRN pantoprazole 20 mg PO BID tizanidine 4 mg PO BEDTIME PRN ubrogepant (Ubrelvy) mg PO HPI Comments Details: Previously seen for lower back pain/SI joint pain. Here for right shoulder pain. History of fibromyalgia. Shows me patient portal from [facility] 2018, mild AC arthritis, no appreciable GH joint arthritis. Pain worse with sleeping on that side and with repetitive movement on forearm or overhead pain. Pain is more front/anterior, going to clavicle and upper rib, feels tender. Feels like it locks or pops or clicks. Denies subluxation or dislocation. No injections or PT recently. Steroid injections blurs her vision and affects menstrual period. Note that previous plans for trigger point injections for lower back pain has been canceled by patient. Her father passed recently. She says she will call the office when she is ready to schedule. REPLACED BY [facility] Medical History History of abnormal cervical Pap smear Anal fissure and fistula Fibromyalgia Surgical History Hx of tubal ligation H/O foot surgery Family History Father HTN (hypertension) Hypothyroid Diabetes Hyperlipidemia Mother HTN (hypertension) Diabetes Hyperlipidemia Social History Household Members: Children Housing: House Alcohol intake: never Patient Tobacco Use Status: Never used Tobacco Current occupational status: disabled Physical Exam Constitutional: Patient appears to be in no acute distress, well nourished and well developed. MSK: Inspection reveals appropriate head and neck positioning. No pain with palpation over the neck musculature. There is tightness on right upper trapezius. Cervical ROM was full. Spurling's sign negative. Bilateral shoulder ROM WNL. No ligamentous laxity or crepitance. No increased effusion. Empty can test is negative. Drop arm test is negative. Speed's test is negative. Neer's test is negative. Hawkin's test is positive anterior pain. Strength is 5/5 in all muscle groups tested. No increased tone noted. Neurological: Neurologic examination of the upper and lower extremities was nonfocal with intact sensation, muscle stretch reflexes and without focal motor deficits . Cheung?s negative bilaterally. Gait is non-antalgic without loss of balance. Assessment & Plan Assessment & Plan (1) Right shoulder pain: Code(s): M25.511 - Pain in right shoulder Category: Medical Qualifiers: Chronicity: chronic Qualified Code(s): M25.511 - Pain in right shoulder; G89.29 - Other chronic pain (2) Arthritis of right acromioclavicular joint: Code(s): M19.011 - Primary osteoarthritis, right shoulder Category: Medical Plan Shoulder pain is more anterior, consistent with AC joint arthritis seen on past x-ray. No signs of rotator cuff injury. Secondary myofascial pain in upper trapezius. Shoulder x-ray today. Patient can not have steroid injections due to past complications. Discussed that lidocaine in joint injections does not give much relief, lasting only a few hours if any. PRP injection is an option but that is [id number] pain. We could consider Ketoralac injection. We would also do trigger point injection with lidocaine on trapezius which might help. We will see what the x-ray shows. Then we will discuss with patient if she wants to proceed with ketorolac injection before scheduling. Assessment and plan discussed with patient, and patient was agreeable. All questions were answered thoroughly. Tonya Wilson MD, REMI Board Certified, [place] [employer] and Rehabilitation (ABPMR) Board Certified, [place] [employer] Electrodiagnostic [employer] (ABEM) Orders: Orders XR shoulder RT min 2V Today M25.511 - Pain in right shoulder Coding Level of Care Code Est Pt Level 4 (63005) Diagnoses Chronic right shoulder pain M25.511; G89.29 Chronicity: chronic Arthritis of right acromioclavicular joint M19.011
== END 2024-05-17 09:40 | disposition home or self-care (01) ==
PROVIDERS: PCP Internal Medicine; Visit Provider Physical Medicine & Rehabilitation
DX: M25.511 Pain in right shoulder (principal); G89.29 Other chronic pain; M19.011 Primary osteoarthritis, right shoulder
CPT/HCPCS: 99213

== ENCOUNTER 2024-05-17 09:17 | Outpatient (REF) | payer OTHER, SELFPAY ==
--- NOTE | ~2024-05-17 | XR_ITS ---
EXAMINATION: XR SHOULDER, RIGHT CLINICAL INFORMATION: Right shoulder pain. COMPARISON: None available. TECHNIQUE: Two views of the right shoulder. FINDINGS: There is mild acromioclavicular arthrosis with distal clavicular osteolysis. Glenohumeral joint is well preserved. No fracture. Alignment is anatomic. Soft tissues are normal with no abnormal calcifications. XR/XR shoulder RT min 2V IMPRESSION: Mild acromioclavicular arthrosis with distal clavicular osteolysis. Electronically signed by: Bravo Perla MD 05/23/2024 11:49 AM EDT
== END 2024-05-17 09:18 | disposition home or self-care (01) ==
LOC: HO.XRAY 09:17
PROVIDERS: PCP Internal Medicine; Visit Provider Physical Medicine & Rehabilitation
DX: M25.511 Pain in right shoulder (principal); G89.29 Other chronic pain
CPT/HCPCS: 73030; 99212

== ENCOUNTER 2024-06-08 09:57 | Outpatient (AMB) | payer OTHER, SELFPAY ==
--- NOTE | 2024-06-08 10:01 | MHC.OFFVIS ---
Vital Signs 06/08/24 10:11 Height 4 ft 11 in Weight 158 lb 8.198 oz BMI 32.0 BP 112/62 Blood Pressure Location Lt brachial Position Sitting Pulse 63 Pulse Source Pulse Oximeter Pulse Oximetry (%) 100 Oxygen Delivery Method Room Air Intake Visit Reasons: FMS Intake Note: Patient presents for FMS. Allergies oxcarbazepine [Trileptal] Allergy (Intermediate, Verified 06/08/24 10:05) hives sumatriptan [Imitrex] Allergy (Intermediate, Verified 06/08/24 10:05) increased heart rate venlafaxine Allergy (Intermediate, Verified 06/08/24 10:05) increased heart rate Cortisone Allergy (Intermediate, Uncoded 05/17/24 09:20) visual disturbance Relpax Allergy (Intermediate, Uncoded 05/17/24 09:20) throat swelling Medication List - Last Reconciled 06/08/24 by Suresh Zhu MD albuterol sulfate 90 mcg/actuation 2 puffs inhalation Q4H PRN ascorbic acid (vitamin C) 500 mg PO DAILY bupropion HCl XL (Wellbutrin XL) 300 mg PO QAM bupropion HCl XL 150 mg PO QAM cetirizine 10 mg PO DAILY cholecalciferol (vitamin D3) 50 mcg PO DAILY diazepam 5 mg PO BID PRN diclofenac sodium 50 mg PO BID diclofenac sodium 1% topical dicyclomine 10 mg PO BID docusate sodium 100 mg PO BID estradiol 1 patch transdermal 2XW famotidine (Pepcid) 20 mg PO BEDTIME PRN fluticasone propionate 50 mcg/actuation 2 sprays intranasal DAILY PRN gabapentin 300 mg PO TID levothyroxine 50 mcg PO DAILY magnesium 200 mg PO DAILY medroxyprogesterone 2.5 mg PO DAILY metoclopramide HCl (Reglan) 10 mg PO Q6H PRN onabotulinumtoxinA (Botox) intradermal [id number] ondansetron HCl 4 mg PO Q8H PRN pantoprazole 20 mg PO BID plecanatide (Trulance) 3 mg PO DAILY terbinafine HCl 250 mg PO DAILY tizanidine 4 mg PO BEDTIME PRN ubrogepant (Ubrelvy) mg PO HPI Comments Details: 48-year-old female with fibromyalgia returns for follow-up. She was having right-sided tremors. She had a brain MRI which was negative. She eventually a neurologist, Dr. Hopson. She was told it was stress-induced tremors. She also having sharp pains in her legs especially with walking. She was evaluated recently by Dr. Tonya Corrales and a shoulder injection is suggested [facility] Medical History History of abnormal cervical Pap smear Anal fissure and fistula Fibromyalgia Surgical History Hx of tubal ligation H/O foot surgery Family History Father HTN (hypertension) Hypothyroid Diabetes Hyperlipidemia Mother HTN (hypertension) Diabetes Hyperlipidemia Social History Household Members: Children Housing: House Alcohol intake: never Patient Tobacco Use Status: Never used Tobacco Current occupational status: disabled Review of Systems Const Reports fatigue Musc Reports myalgias, Reports radiating pain into limb and Reports tingling Neuro Reports tingling Endo Reports fatigue Physical Exam Vital Signs: Last Vital Signs Pulse 63 06/08/24 10:11 BP 112/62 06/08/24 10:11 Pulse Ox 100 06/08/24 10:11 Oxygen Delivery Method Room Air 06/08/24 10:11 BMI result Body Mass Index 32.0 Const General: cooperative, healthy appearing and comfortable Nutritional Appearance: overweight Orientation/consciousness: patient oriented x3 Limitations: ambulation with cane HEENT Head: Yes normocephalic and Yes atraumatic Mouth: moist mucous membranes Neck Other: Normal neck range of motion Resp Effort & Inspection: normal respiratory effort and able to speak in complete sentences Neuro General: patient oriented x3 Extrem Other: Multiple fibromyalgia tender points Normal range of motion of shoulders Negative rotator cuff provocative maneuvers bilaterally Assessment & Plan Assessment & Plan (1) Fibromyalgia: Comment: Previous serology in 2017 with normal inflammatory markers, normal complements, negative rheumatoid factor, negative CCP, negative BRINDA, negative double-stranded DNA. Cardiolipin antibodies negative. BASILIA positive 1:80. Code(s): M79.7 - Fibromyalgia Category: Medical Plan: Patient follows up regularly with her psychotherapist and psychiatrist. I suggested getting a sleep study to rule out KRISTOPHER Consider water aerobics/aquatherapy Continue with gabapentin 300 mg t.i.d. and tizanidine 4 mg nightly as needed. Plan I spent 16 minutes reviewing patient's chart, evaluating patient, counseling patient and documenting in the chart Coding Level of Care Code Est Pt Level 3 (78921) Diagnoses Fibromyalgia M79.7
[2024-06-08 10:11] VITALS: BP 112/62; PULSE 63; O2SAT 100; BMI 32.0
== END 2024-06-08 10:46 | disposition home or self-care (01) ==
PROVIDERS: PCP Internal Medicine; Visit Provider Student in an Organized Health Care Education/Training Program
DX: M79.7 Fibromyalgia (principal)
CPT/HCPCS: 99213

== ENCOUNTER → 2024-06-08 09:57 | Outpatient (BNVA) | payer OTHER, SELFPAY | PROVIDERS: PCP Internal Medicine; Visit Provider Student in an Organized Health Care Education/Training Program | DX: M79.7 Fibromyalgia (principal) | CPT/HCPCS: 99212 ==

== ENCOUNTER 2024-06-15 08:56 | Outpatient (AMB) | payer OTHER, SELFPAY ==
--- NOTE | 2024-06-15 09:05 | A.OFFVIS_ITS ---
Vital Signs 06/15/24 09:07 Height 4 ft 11.5 in Weight 154 lb BMI 30.6 Intake Visit Reasons: RT shoulder injection/trigger point injection#1 Intake Note: Leisa is a 48 year old female who presents today for her 1st right shoulder injection. Patient reports her symptoms are the same as last visit. At this time patient expresses she has no concerns. Allergies oxcarbazepine [Trileptal] Allergy (Intermediate, Verified 06/15/24 09:08) hives sumatriptan [Imitrex] Allergy (Intermediate, Verified 06/15/24 09:08) increased heart rate venlafaxine Allergy (Intermediate, Verified 06/15/24 09:08) increased heart rate Cortisone Allergy (Intermediate, Uncoded 06/15/24 09:08) visual disturbance Relpax Allergy (Intermediate, Uncoded 06/15/24 09:08) throat swelling Medication List - Last Reconciled 06/15/24 by Tonya Wilson MD albuterol sulfate 90 mcg/actuation 2 puffs inhalation Q4H PRN ascorbic acid (vitamin C) 500 mg PO DAILY bupropion HCl XL (Wellbutrin XL) 300 mg PO QAM bupropion HCl XL 150 mg PO QAM cetirizine 10 mg PO DAILY cholecalciferol (vitamin D3) 50 mcg PO DAILY diazepam 5 mg PO BID PRN diclofenac sodium 50 mg PO BID diclofenac sodium 1% topical dicyclomine 10 mg PO BID docusate sodium 100 mg PO BID estradiol 1 patch transdermal 2XW famotidine (Pepcid) 20 mg PO BEDTIME PRN fluticasone propionate 50 mcg/actuation 2 sprays intranasal DAILY PRN gabapentin 300 mg PO TID levothyroxine 50 mcg PO DAILY magnesium 200 mg PO DAILY medroxyprogesterone 2.5 mg PO DAILY metoclopramide HCl (Reglan) 10 mg PO Q6H PRN onabotulinumtoxinA (Botox) intradermal [id number] ondansetron HCl 4 mg PO Q8H PRN pantoprazole 20 mg PO BID plecanatide (Trulance) 3 mg PO DAILY terbinafine HCl 250 mg PO DAILY tizanidine 4 mg PO BEDTIME PRN ubrogepant (Ubrelvy) mg PO HPI Comments Details: We are trying Ketoralac injection to the right shoulder. Patient has had side effects from steroid therefore we are not using that. [facility] Medical History History of abnormal cervical Pap smear Anal fissure and fistula Fibromyalgia Surgical History Hx of tubal ligation H/O foot surgery Family History Father HTN (hypertension) Hypothyroid Diabetes Hyperlipidemia Mother HTN (hypertension) Diabetes Hyperlipidemia Social History Household Members: Children Housing: House Alcohol intake: never Patient Tobacco Use Status: Never used Tobacco Current occupational status: disabled Physical Exam Vital Signs: BMI result Body Mass Index 30.6 Office Procedures Joint Injection/Aspiration Joint Injection/Aspiration Details: Consent was obtained. The distal, lateral, and posterior edges of the right acromion are palpated. Area is cleansed with betadine solution. A 27 gauge needle is inserted just inferior to the posterolateral edge of the acromion. The needle is directed toward the opposite chest. A solution containing 60 mg ketorolac and 2 mL of 2% Lidocaine is injected. Patient tolerated procedure well without complications. Post-injection instructions given. Primary Site: right shoulder Injected: 60 mg of (Ketoralac) Approach Used: other (2 mL 2% lidocaine) Coding 65094 - Large joint Procedure code (CPT) selection complete Assessment & Plan Assessment & Plan (1) Right shoulder pain: Code(s): M25.511 - Pain in right shoulder Category: Medical Qualifiers: Chronicity: chronic Qualified Code(s): M25.511 - Pain in right shoulder; G89.29 - Other chronic pain (2) Arthritis of right acromioclavicular joint: Code(s): M19.011 - Primary osteoarthritis, right shoulder Category: Medical Plan Discussed possible side effect profile of ketorolac, including but not limited to post-injection pain. Patient was eager to proceed. Patient tolerated procedure well. Assessment and plan discussed with patient, and patient was agreeable. All questions were answered thoroughly. Follow up 6 weeks. Tonya Wilson MD, REMI Board Certified, [place] [employer] and [employer] (ABPMR) Board Certified, [place] [employer] Electro[employer]ostic [employer] (ABEM) Orders: Orders AMB Joint Injection/Aspiration Today G89.29 - Other chronic pain, M19.011 - Primary osteoarthritis, right shoulder, M25.511 - Pain in right shoulder Coding Level of Care Code Procedure Only Diagnoses Chronic right shoulder pain M25.511; G89.29 Chronicity: chronic Arthritis of right acromioclavicular joint M19.011 CPT Codes Coding - 49935 Large joint: 43974 - Large joint ([id number])
[2024-06-15 09:07] VITALS: BMI 30.6
== END 2024-06-15 09:28 | disposition home or self-care (01) ==
PROVIDERS: PCP Internal Medicine; Visit Provider Physical Medicine & Rehabilitation
DX: M19.011 Primary osteoarthritis, right shoulder (principal); G89.29 Other chronic pain
CPT/HCPCS: 20610

== ENCOUNTER → 2024-06-15 08:56 | Outpatient (BNVA) | payer OTHER, SELFPAY | PROVIDERS: PCP Internal Medicine; Visit Provider Physical Medicine & Rehabilitation | DX: M19.011 Primary osteoarthritis, right shoulder (principal); M25.511 Pain in right shoulder; M79.7 Fibromyalgia | CPT/HCPCS: 20610; J1885; J2003 ==

== ENCOUNTER 2024-07-27 08:48 | Outpatient (AMB) | payer OTHER, SELFPAY ==
--- NOTE | 2024-07-27 09:00 | A.OFFVIS_ITS ---
Intake Visit Reasons: OV-RT shoulder injection-follow up Intake Note: Leisa is a 49 year old female who presents today for a follow up evaluation s/p right shoulder injection. Patient reports last injection administered on 06/15/24 provided relief. Allergies oxcarbazepine [Trileptal] Allergy (Intermediate, Verified 07/27/24 09:04) hives sumatriptan [Imitrex] Allergy (Intermediate, Verified 07/27/24 09:04) increased heart rate venlafaxine Allergy (Intermediate, Verified 07/27/24 09:04) increased heart rate Cortisone Allergy (Intermediate, Uncoded 07/27/24 09:04) visual disturbance Relpax Allergy (Intermediate, Uncoded 07/27/24 09:04) throat swelling HPI Comments Details: On last visit, 06/15/24, we tried Ketoralac injection to the right shoulder. Patient has had side effects from steroid therefore we used Ketorolac instead. Patient denies side effects. No more pain now since injection, maybe only soreness when she carries her purse for too long. Over this year, I've seen patient for multiple issues: Initially referred by Rheumatology. Seen by Dr. Zhu who suspected piriformis syndrome. By the time I saw her, patient was no longer having pain. It was right sided. Not aware of trigger or injury. Points to SI or piriformis, radiates down to calf and foot. Denied numbness. History of fibromyalgia. Can't have steroid injections due to reactions (blurry vision, worsens period, no hives or anaphylaxis). History of ankle instability. Had surgery 06/28/23 ligament repair left ankle done at [facility]. ER visits for lower back axial pain last August 2023, had gone to ER. Completed PT, referred by PCP. Treated for lower back and hip. She had seen rheumatology last October 2023 - trigger point injections to trapezius and lumbar paraspinals were done. When I saw her she was having right SI joint pain. No longer painful per patient. No more radiation to leg. She had finished PT and still going to chiro. She complains this time of grinding on right lateral hip, does not radiate to groin, non radicular. She thinks started after surgery last June on left ankle and she was putting more weight on right. [facility] Medical History History of abnormal cervical Pap smear Anal fissure and fistula Fibromyalgia Surgical History Hx of tubal ligation H/O foot surgery Family History Father HTN (hypertension) Hypothyroid Diabetes Hyperlipidemia Mother HTN (hypertension) Diabetes Hyperlipidemia Social History Household Members: Children Housing: House Alcohol intake: never Patient Tobacco Use Status: Never used Tobacco Current occupational status: disabled Physical Exam Constitutional: Patient appears to be in no acute distress, well nourished and well developed. MSK: Inspection reveals appropriate head and neck positioning. Right shoulder ROM WNL. No ligamentous laxity or crepitance. No increased effusion. Empty can test is negative. Speed's test is negative. Hawkin's test is negative. Strength is 5/5 in all muscle groups tested. No increased tone noted. Neurological: Neurologic examination of the upper and lower extremities was nonfocal with intact sensation, muscle stretch reflexes and without focal motor deficits . Gait is non-antalgic without loss of balance. Results Reviewed Results Reviewed: Ordering Physician: Tonya Corrales Date of Service: 05/17/24 Procedure(s): XR shoulder RT min 2V Accession Number(s): [id number] cc: Idania De La Torre MD; Tonya Corrales~ EXAMINATION: XR SHOULDER, RIGHT CLINICAL INFORMATION: Right shoulder pain. COMPARISON: None available. TECHNIQUE: Two views of the right shoulder. FINDINGS: There is mild acromioclavicular arthrosis with distal clavicular osteolysis. Glenohumeral joint is well preserved. No fracture. Alignment is anatomic. Soft tissues are normal with no abnormal calcifications. XR/XR shoulder RT min 2V IMPRESSION: Mild acromioclavicular arthrosis with distal clavicular osteolysis. Electronically signed by: Bravo Perla MD 05/23/2024 11:49 AM EDT RP Assessment & Plan Assessment & Plan (1) Right shoulder pain: Code(s): M25.511 - Pain in right shoulder Category: Medical Qualifiers: Chronicity: chronic Qualified Code(s): M25.511 - Pain in right shoulder; G89.29 - Other chronic pain (2) Arthritis of right acromioclavicular joint: Code(s): M19.011 - Primary osteoarthritis, right shoulder Category: Medical Plan Improved with ketorolac injection done last visit. Patient happy with results. Assessment and plan discussed with patient, and patient was agreeable. All questions were answered thoroughly. Follow up 6 months. Patient to call when pain starts to act up. Tonya Wilson MD, REMI Board Certified, [place] [employer] and [employer] (ABPMR) Board Certified, [place] [employer] Electro[employer] (ABEM) Coding Level of Care Code Est Pt Level 3 (80572) Diagnoses Chronic right shoulder pain M25.511; G89.29 Chronicity: chronic Arthritis of right acromioclavicular joint M19.011
== END 2024-07-27 09:18 | disposition home or self-care (01) ==
PROVIDERS: PCP Internal Medicine; Visit Provider Physical Medicine & Rehabilitation
DX: M25.511 Pain in right shoulder (principal); G89.29 Other chronic pain; M19.011 Primary osteoarthritis, right shoulder
CPT/HCPCS: 99212

== ENCOUNTER → 2024-07-27 08:48 | Outpatient (BNVA) | payer OTHER, SELFPAY | PROVIDERS: PCP Internal Medicine; Visit Provider Physical Medicine & Rehabilitation | DX: M25.511 Pain in right shoulder (principal); M19.011 Primary osteoarthritis, right shoulder; G89.29 Other chronic pain | CPT/HCPCS: 99212 ==

== ENCOUNTER 2025-01-05 08:48 | Outpatient (REF) | payer OTHER, SELFPAY ==
--- NOTE | ~2025-01-05 | XR_ITS ---
EXAMINATION: XR SHOULDER, LEFT CLINICAL INFORMATION: M25.512 - Pain in left shoulder COMPARISON: None available. TECHNIQUE: 2 views of the left shoulder. FINDINGS: The bones and soft tissues are normal. No fracture. Glenohumeral and acromioclavicular alignment is anatomic with normal joint space. No abnormal soft tissue calcifications. XR/XR shoulder LT min 2V IMPRESSION: Normal left shoulder. Electronically signed by: Russ Aleman MD 01/05/2025 11:59 AM EDT
--- OUTSIDE RECORDS SUMMARY | 2025-01-05 10:31 | XMS_ITS | Clinical Summary ---
Author Organization [facility] Address [address] [place] [address] Phone Care Team Providers Care Dairy Farm Supervisor Name Role Phone Idania De La Torre MD Primary Care Provider [phone] Allergies Active Allergy Reactions Criticality Noted Date [...] Date Diagnosed Date Anxiety 06/08/2024 Bipolar depression ([facility] V24, [facility] V28) Esophageal reflux 06/08/2024 Fibromyalgia 06/08/2024 Migraine 06/08/2024 Ganglion cyst of left foot 08/19/2022 Hyperlipidemia 09/25/2021 Overview (06/08/2024): 09/27 - ASCVD score .5% Neck pain 10/31/2020 Chronic insomnia 11/01/2017 Overview (06/08/2024): 10/2017 Diagnostic Sleep Study did not reveal sleep apnea. Erythromelalgia ([facility] V24) 09/13/2017 Chest pain 05/27/2014 Overview (06/08/2024): [...] Papanicolaou smear of cervix and cervical HPV [facility] IMO Update Fall 2015 Encounters Date Type Department Care Team Description 12/21/2024 9:45 AM EDT Office Visit Orthopedic Surgery [facility] [address] [phone] Ignacio Alonzo DPM Arthritis of left ankle (Primary Dx); Follow-up exam; Neuritis 11/21/2024 4:52 PM EDT - 11/21/2024 11:59 PM EDT Hospital Encounter [facility] MRI [address] [place] [phone] Arthritis of left ankle Discharge Disposition: Home or Self Care 11/14/2024 10:00 AM EDT Office Visit Orthopedic [facility] [address] [phone] Ignacio Alonzo DPM Arthritis of left ankle (Primary Dx); Other atopic dermatitis 10/11/2024 10:45 AM EST Office Visit [facility] [address] [phone] Ignacio Alonzo DPM Arthritis of left ankle [...] Surgery Date Site/Laterality Comments BUNIONECTOMY 2001 PROCEDURE: [place] CORRJ HLX VLGS BNCTY SESMDC W/DOUBLE OSTEOTOMY; COMMENT: right FLEXIBLE SIGMOIDOSCOPY 05/26/2011 PROCEDURE: HISTORICAL FLEXIBLE SIGMOIDOSCOPY; COMMENT: ext hemorrhoidal tags x 2 OTHER SURGICAL HISTORY 07/18/2013 PROCEDURE: NUCLEAR EXAM OF STOMACH EMPTYING; COMMENT: [facility] - delayed liquid and solid material gastric emptying suggesting gastroparesis. COLONOSCOPY 01/28/2016 PROCEDURE: HISTORICAL COLONOSCOPY; COMMENT: normal UPPER GASTROINTESTINAL ENDOSCOPY 08/25/2013 PROCEDURE: [place] UPPER GI ENDOSCOPY PERFORMED; COMMENT: normal on omeprazole treatment. UPPER GASTROINTESTINAL ENDOSCOPY 11/11/2005 PROCEDURE: [place] UPPER GI ENDOSCOPY PERFORMED; COMMENT: Dr Horner - normal OTHER SURGICAL HISTORY PROCEDURE: [place] HEMORRHOID NTRNL & XTRNL 1 COLUMN W/FISSURECTO; COMMENT: [facility] [place] Dr. Petty COLONOSCOPY 09/25/2021 PROCEDURE: HISTORICAL COLONOSCOPY; COMMENT: normal ESOPHAGOGASTRODUODENOSCOPY 01/08/2022 PROCEDURE: [place] EGD TRANSORAL BIOPSY SINGLE/MULTIPLE; COMMENT: EGD normal including biopsy TUBAL LIGATION 11/24/2018 PROCEDURE: HISTORICAL TUBAL LIGATION BUNIONECTOMY 2001 Right PROCEDURE: BUNION SURGERY, SIMPLE REMOVAL ANKLE SURGERY 06/2023 Left PROCEDURE: HISTORICAL ANKLE SURGERY; COMMENT: ligament repair Medical History Medical History Date Comments Historical Medical DX 12/11/2009 DX:Abnorma l Pap smear and cervical HPV (human papillomavirus); COMMENT: [facility] Anxiety DX:Anxiety; COMM ENT: followed by psychiatrist/ therapist in [place] Esophageal reflux DX:Esophageal reflux Bipolar depression (CMS/HCC V24, CMS/HCC V28) DX:Bipolar depression (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 Alonzo Fibromyalgia DX:Fibromyalgia Gastroparesis DX:Gastroparesis Cervical [...] care for your loved ones. For example, child care teacher or elderly care for an older adult? [...] 01/24/2025 9:10 AM EDT Appointment Radiology Department [address] [phone] 02/01/2025 8:45 AM EDT Office Visit Orthopedic Surgery - [place] [address] [phone] Ignacio Alonzo, DPM [address] [address] 02/23/2025 11:00 AM EDT Office Visit Adult Medicine [address] [phone] Idania De La Torre MD [address] [place] [address] Health Maintenance Due Date Last Done Comments [...] Signed Date: 11/22/2024 09:06 ET Workstation ID: [id number] Transcribed By: Self Edit Transcribed Date: 11/22/2024 [...] Signed Date: 11/22/2024 09:06 ET Workstation ID: [id number] Transcribed By: Self Edit Transcribed Date: 11/22/2024 [...] recommended for the right breast. MAMMO LOCATION: [facility], [address] [place] [address], [address], . -------- FINAL REPORT -------- Dictated By: Tali Du Dictated Date: 07/20/2024 09:01 ET Assigned Physician: Tali Du Reviewed and Electronically Signed By: Tali Du Signed Date: 07/20/2024 09:07 ET Workstation ID: [id number] Transcribed By: Self Edit Transcribed Date: 07/20/2024 [...] schedule recommended for the rightbreast. MAMMO LOCATION: [facility], [address] [place] [address], [facility], . -------- FINAL REPORT -------- Dictated By: Tali Du Dictated Date: 07/20/2024 09:01 ET Assigned Physician: Tali Du Reviewed and Electronically Signed By: Tali Du Signed Date: 07/20/2024 09:07 ET Workstation ID: [id number] Transcribed By: Self Edit Transcribed Date: 07/20/2024 09:01 ET Marylu Jimenez MD IMG BI PROCEDURES Final Resu lt * (ABNORMAL) Lipid panel (03/01/2024) [facility] LDL/HDL Ratio 4 0 - 4 Triglycerides 64 0 - 150 mg/dL Cholesterol 204(A) 0 - 200 mg/dL HDL 57 >=40 mg/dL LDL Cholesterol 135(A) 0 - 100 mg/dL Blood Venous blood specimen / Unknown [facility] Provider LAB BLOOD ORDERABLES Tatiana l Result * Cervical Cancer Screening: HPV (04/06/2023) [facility] Cervical Cancer Screening: HPV no interpreta tion,abstr acted Result [facility] Provider HEALTH MAINTENANCE Final Result * Colonoscopy (09/25/2021) [facility] Colonoscopy no interpreta tion,abstr acted Anatomical Region Laterality Modality Other [facility] Provider HEALTH MAINTENANCE Final Result * HIV Screening (09/15/2013) [facility] HIV Screening abstracted [facility] Provider HEALTH MAINTENANCE Final Result * Hepatitis C Screening (09/15/2013) [facility] Hepatitis C Screening abstracted [facility] Provider HEALTH MAINTENANCE Final Result from Last 3 Months or Most Recently Relevant to Health Maintenance Insurance [facility] MEDIC[facility] Member Subscriber Plan / Payer (Ef fective 2022-Present) Name:Leisa So Relation to Subscriber:Self Name:Leisa So Payer ID:[id number] Group ID:[id number] Type:Not on file Address: [place] [address] [place] [phone] Care Teams Dairy Farm Supervisor Relationship Specialty Start Date End Date Idania De La Torre MD [address] [place] [phone] PCP - General Internal Medicine 07/13/24
== END 2025-01-05 08:49 | disposition home or self-care (01) ==
LOC: HO.HOSX 08:48
PROVIDERS: PCP Internal Medicine; Visit Provider Physical Medicine & Rehabilitation
DX: Z13.89 Encounter for screening for other disorder (principal)
CPT/HCPCS: 73030

== ENCOUNTER 2025-01-05 08:48 | Outpatient (AMB) | payer OTHER, SELFPAY ==
--- NOTE | 2025-01-05 09:08 | MHC.OFFVIS ---
Vital Signs 01/05/25 09:09 Height 4 ft 11 in Weight 145 lb BMI 29.3 Intake Visit Reasons: OV-RT shoulder injection-follow up Intake Note: Leisa is a 49 year old female who presents today for a follow up of her Right Shoulder Pain/ AC OA. Last Injection was provided on 06/15/24. States injection helped and is doing better. Currently states she is having similar pain in her left shoulder and would like to discuss injection. Allergies oxcarbazepine [Trileptal] Allergy (Intermediate, Verified 01/05/25 09:14) hives sumatriptan [Imitrex] Allergy (Intermediate, Verified 01/05/25 09:14) increased heart rate venlafaxine Allergy (Intermediate, Verified 01/05/25 09:14) increased heart rate Cortisone Allergy (Intermediate, Uncoded 01/05/25 09:14) visual disturbance Relpax Allergy (Intermediate, Uncoded 01/05/25 09:14) throat swelling HPI Comments Details: On 06/15/24, we tried Ketoralac injection to the right shoulder. That was done for AC joint arthrosis. Patient did not show signs of rotator cuff tear at that time. Patient has had side effects from steroid therefore we used Ketorolac instead. Patient denies side effects. She tells me today that she had no pain up until a few weeks ago. She is now having some discomfort during right shoulder abduction. She also mentions beginning pain on left side. She had an episode where in she could not move it at all without using the right hand. Past history: Initially referred by Rheumatology. Seen by Dr. Zhu who suspected piriformis syndrome. By the time I saw her, patient was no longer having pain. It was right sided. Not aware of trigger or injury. Points to SI or piriformis, radiates down to calf and foot. Denied numbness. History of fibromyalgia. Can't have steroid injections due to reactions (blurry vision, worsens period, no hives or anaphylaxis). History of ankle instability. Had surgery 06/28/23 ligament repair left ankle done at [facility]. ER visits for lower back axial pain last August 2023, had gone to ER. Completed PT, referred by PCP. Treated for lower back and hip. She had seen rheumatology last October 2023 - trigger point injections to trapezius and lumbar paraspinals were done. When I saw her she was having right SI joint pain. No longer painful per patient. No more radiation to leg. She had finished PT and still going to chiro. She complains this time of grinding on right lateral hip, does not radiate to groin, non radicular. She thinks started after surgery last June on left ankle and she was putting more weight on right. [facility] Medical History History of abnormal cervical Pap smear Anal fissure and fistula Fibromyalgia Surgical History Hx of tubal ligation H/O foot surgery Family History Father HTN (hypertension) Hypothyroid Diabetes Hyperlipidemia Mother HTN (hypertension) Diabetes Hyperlipidemia Social History Household Members: Children Housing: House Alcohol intake: never Patient Tobacco Use Status: Never used Tobacco Current occupational status: disabled Physical Exam Vital Signs: BMI result Body Mass Index 29.3 Constitutional: Patient appears to be in no acute distress, well nourished and well developed. MSK: Inspection reveals appropriate head and neck positioning. Right shoulder tender on biceps proximal insertion. No tenderness over AC joint. Left shoulder tender on left upper trapezius and biceps proximal insertion. Right shoulder ROM WNL both passive and active. No ligamentous laxity or crepitance. No increased effusion. Bilateral Empty can test is negative. Bilateral Speed's test is negative. Bilateral Hawkin's test is positive, pain on biceps insertion proximally. Strength is 5/5 in all muscle groups tested. No increased tone noted. Neurological: Neurologic examination of the upper and lower extremities was nonfocal with intact sensation, muscle stretch reflexes and without focal motor deficits . Gait is non-antalgic without loss of balance. Results Reviewed Results Reviewed: Ordering Physician: Tonya Corrales Date of Service: 05/17/24 Procedure(s): XR shoulder RT min 2V Accession Number(s): [id number] cc: Idania De La Torre MD; Tonya Corrales~ EXAMINATION: XR SHOULDER, RIGHT CLINICAL INFORMATION: Right shoulder pain. COMPARISON: None available. TECHNIQUE: Two views of the right shoulder. FINDINGS: There is mild acromioclavicular arthrosis with distal clavicular osteolysis. Glenohumeral joint is well preserved. No fracture. Alignment is anatomic. Soft tissues are normal with no abnormal calcifications. XR/XR shoulder RT min 2V IMPRESSION: Mild acromioclavicular arthrosis with distal clavicular osteolysis. Electronically signed by: Bravo Perla MD 05/23/2024 11:49 AM EDT RP Assessment & Plan Assessment & Plan (1) Fibromyalgia: Comment: Previous serology in 2017 with normal inflammatory markers, normal complements, negative rheumatoid factor, negative CCP, negative BRINDA, negative double-stranded DNA. Cardiolipin antibodies negative. BASILIA positive 1:80. Code(s): M79.7 - Fibromyalgia Category: Medical (2) Myofascial pain: Code(s): M79.18 - Myalgia, other site Category: Medical (3) Right shoulder pain: Code(s): M25.511 - Pain in right shoulder Category: Medical Qualifiers: Chronicity: chronic Qualified Code(s): M25.511 - Pain in right shoulder; G89.29 - Other chronic pain (4) Arthritis of right acromioclavicular joint: Code(s): M19.011 - Primary osteoarthritis, right shoulder Category: Medical (5) Joint pain: Code(s): M25.50 - Pain in unspecified joint Category: Medical Qualifiers: Joint pain location: shoulder Laterality: bilateral Qualified Code(s): M25.511 - Pain in right shoulder; M25.512 - Pain in left shoulder Plan Started with right shoulder, now also having left shoulder pain. On both sides, suspect possibly biceps tendonitis. Left upper trapezius is tender. History of fibromyalgia. 1. Do not feel comfortable injecting with ketorolac without further investigating. Patient had undergone adequate conservative management including PT without improvement of condition. It would be reasonable to obtain further imaging such as MRI. An MRI would help rule out any serious condition, guide treatment and assess prognosis for recovery. Specifically ruling out rotator cuff tear. 2. Left shoulder x-ray today. 3. Check BASILIA and RF blood work. Assessment and plan discussed with patient, and patient was agreeable. All questions were answered thoroughly. Follow up 6 weeks or after results. Tonya Wilson MD, REMI Board Certified, [place] [employer] and [employer] (ABPMR) Board Certified, [place] [employer] (ABEM) Orders: Orders MR shoulder RT wo con Today M25.50 - Pain in unspecified joint, S46.001A - Unspecified injury of muscle(s) and tendon(s) of the rotator cuff of right shoulder, initial encounter BASILIA Reflex Titer and Pattern Today M25.50 - Pain in unspecified joint Rheumatoid Factor Today M25.50 - Pain in unspecified joint XR shoulder LT min 2V Today M25.50 - Pain in unspecified joint, M25.512 - Pain in left shoulder Coding Level of Care Code Est Pt Level 4 (45824) Diagnoses Fibromyalgia M79.7 Myofascial pain M79.18 Chronic right shoulder pain M25.511; G89.29 Chronicity: chronic Arthritis of right acromioclavicular joint M19.011 Pain of both shoulder joints M25.511; M25.512 Joint pain location: shoulder Laterality: bilateral
[2025-01-05 09:09] VITALS: BMI 29.3
--- OUTSIDE RECORDS SUMMARY | 2025-01-05 09:15 | XMS_ITS | Clinical Summary ---
Author Organization [facility] Address [address] [place] [address] Phone Care Team Providers Care Stucco Laborer Name Role Phone Idania De La Torre MD Primary Care Provider [phone] Allergies Active Allergy Reactions Criticality Noted Date Comments Cortisone Medium 08/15/2016 Other Reaction(s): OTHER Patient developed blurred vision after the injection and also it induced her menses Sumatriptan Succinate 08/28/2010 Tightning in chest Eletriptan 08/28/2010 Tightning in chest Oxcarbazepine 08/28/2010 Itching/Pruritus Venlafaxine 11/25/2015 Tight throat Medications multivit-mineral s/folic acid (ADULT MULTIVITAMIN GUMMIES ORAL) Take by mouth. A ctive ubrogepant (UBRELVY) 100 mg tablet Take by mouth daily as needed. Active albuterol HFA (PROAIR HFA ; PROVENTIL HFA ; VENTOLIN HFA) 90 mcg/actuation inhaler Inhale 2 Puffs into the lungs every 4 hours as needed for Cough or Wheezing. 3 Active buPROPion XL (WELLBUTRIN XL) 150 mg 24 hr tablet 450 mg daily 3 Active buPROPion XL (WELLBUTRIN XL) 300 mg 24 hr tablet 450 mg. 1 Active cholecalciferol (VITAMIN D-3) 50 mcg (2,000 unit) tablet Take 1 Tab by mouth daily. 0 Active diazePAM (VALIUM) 5 mg tablet Take 5 mg by mouth every 8 hours as needed. Active diclofenac (VOLTAREN) 50 mg EC tablet TAKE 1 TABLET BY MOUTH TWICE A DAY 4 Active diclofenac (VOLTAREN) 1 % topical gel APPLY TOPICALLY 2 TIMES DAILY NEEDED FOR PAIN. 4 Active docusate sodium (COLACE) 100 mg capsule TAKE 1 CAPSULE BY MOUTH TWICE A DAY 4 Active estradioL (VIVELLE-DOT) 0.05 mg/24 hr APPLY 1 PATCH TWICE A WEEK BY TRANSDERMAL ROUTE FOR 84 DAYS. 1 Active famotidine (PEPCID) 20 mg tablet TAKE 1 TABLET BY MOUTH 2 TIMES DAILY NEEDED FOR HEARTBURN. 3 Active fluticasone propionate (FLONASE) 50 mcg/actuation nasal spray SPRAY 2 SPRAYS BY NASAL ROUTE DAILY 3 Active gabapentin (NEURONTIN) 300 mg capsule Take 1 Capsule by mouth 3 times daily. 3 Active levothyroxine (SYNTHROID, LEVOTHROID) 50 mcg tablet TAKE 1 TABLET BY MOUTH EVERY DAY 4 Active loperamide (IMODIUM) 2 mg capsule TAKE 1 CAPSULE BY MOUTH 4 TIMES DAILY NEEDED FOR DIARRHEA. 4 Active magnesium oxide 200 mg magnesium tablet,chewable Take 200 mg by mouth daily. Active medroxyPROGESTER one (PROVERA) 2.5 mg tablet Take 2.5 mg by mouth daily. 1 Active ondansetron (ZOFRAN) 4 mg tablet Take 1 Tablet by mouth every 8 hours as needed for Nausea. 3 Active pantoprazole (PROTONIX) 20 mg EC tablet TAKE 1 TABLET BY MOUTH 2 TIMES DAILY (BEFORE MEALS). TAKE ON EMPTY STOMACH, WAIT 30 MINS AND THEN EAT TO ACTIVATE THE MEDIATION- BEFORE BREAKFAST AND SUPPER 3 Active senna (SENOKOT) 8.6 mg tablet TAKE 1 TABLET BY MOUTH EVERY DAY 3 Active terbinafine (LamISIL) 250 mg tablet Take 1 Tablet by mouth daily for 90 days Active plecanatide (TRULANCE) 3 mg tablet Take 1 Tablet by mouth daily. Active baclofen (LIORESAL) 10 mg tablet Take 1 tablet (10 mg total) by mouth 3 (three) times a day for 7 days. 21 each 4 Active metoclopramide (REGLAN) 10 mg tablet TAKE 1 TABLET BY MOUTH 3 TIMES A DAY NEEDED FOR VOMITING 90 tablet 1 5 Active dicyclomine (BENTYL) 10 mg capsule TAKE 1 CAPSULE BY MOUTH 4 TIMES DAILY (BEFORE MEALS AND NIGHTLY). 360 capsule 1 5 Active triamcinolone (KENALOG) 0.025 % ointment Apply topically 2 (two) times a day. Apply to left foot rash 30 g 5 025 Active Problems Problem Noted Date Diagnosed Date Anxiety 06/08/2024 Bipolar depression ([facility] V24, [facility] V28) Esophageal reflux 06/08/2024 Fibromyalgia 06/08/2024 Migraine 06/08/2024 Ganglion cyst of left foot 08/19/2022 Hyperlipidemia 09/25/2021 Overview (06/08/2024): 09/27 - ASCVD score .5% Neck pain 10/31/2020 Chronic insomnia 11/01/2017 Overview (06/08/2024): 10/2017 Diagnostic Sleep Study did not reveal sleep apnea. Erythromelalgia ([facility] V24) 09/13/2017 Chest pain 05/27/2014 Overview (06/08/2024): [facility] ER visit 05/21/14, 5/10 precordial left-sided chest pain radiating into her face. EKG unremarkable, chest pain reproducible, advised to followup when necessary. Gastroparesis 08/24/2013 Overview (06/08/2024): 07/18/13 Gastric Emptying Study confirms gastroparesis to both solids & liquids Subclinical hypothyroidism 07/04/2013 Chronic constipation 05/14/2012 Tinnitus, right 05/25/2011 Overview (06/08/2024): In right ear - hearing test supposedly wnl As of 2020 - both ears involved though louder on right Abnormal Papanicolaou smear of cervix 12/11/2009 Overview (06/08/2024): Other abnormal Papanicolaou smear of cervix and cervical HPV [facility] IMO Update Fall 2015 Encounters Date Type Department Care Team Description 12/21/2024 9:45 AM EDT Office Visit Orthopedic Surgery [facility] [address] [phone] Ignacio Alonzo DPM Arthritis of left ankle (Primary Dx); Follow-up exam; Neuritis 11/21/2024 4:52 PM EDT - 11/21/2024 11:59 PM EDT Hospital Encounter [facility] MRI [address] [place] [phone] Arthritis of left ankle Discharge Disposition: Home or Self Care 11/14/2024 10:00 AM EDT Office Visit Orthopedic [facility] [address] [phone] Ignacio Alonzo DPM Arthritis of left ankle (Primary Dx); Other atopic dermatitis 10/11/2024 10:45 AM EST Office Visit [facility] [address] [phone] Ignacio Alonzo DPM Arthritis of left ankle (Primary Dx); Verruca plantaris; Other atopic dermatitis; Tinea pedis of left foot from Last 3 Months Immunizations Name Administration Dates Next Due Influenza Quadravalent, MDCK , 0.5ml, preservative free (Flucelvax) 6mo and older 08/19/2022,06/21/2020 Influenza Quadravalent, MDCK , 0.5ml, with preservative (Flucelvax) 6mo and older 06/28/2018 Influenza trivalent, with preservative (Fluzone; Afluria) 6mo and older 09/22/2019,06/09/2016,08/20/2014,2012,08/28/2010 Influenza, Unspecified 07/02/2021,09/22/2019, Pfizer SARS-CoV-2 COVID-19, mRNA, LNP-S, preservative free 06/18/2021,05/28/2021 Tdap Tetanus diptheria acell ular pertussis (Boostrix; Adacel) 7yo and older 10/20/2015,07/21/2013 Surgical History Surgery Date Site/Laterality Comments BUNIONECTOMY 2001 PROCEDURE: [facility] CORRJ HLX VLGS BNCTY SESMDC W/DOUBLE OSTEOTOMY; COMMENT: right FLEXIBLE SIGMOIDOSCOPY 05/26/2011 PROCEDURE: HISTORICAL FLEXIBLE SIGMOIDOSCOPY; COMMENT: ext hemorrhoidal tags x 2 OTHER SURGICAL HISTORY 07/18/2013 PROCEDURE: NUCLEAR EXAM OF STOMACH EMPTYING; COMMENT: [facility] - delayed liquid and solid material gastric emptying suggesting gastroparesis. COLONOSCOPY 01/28/2016 PROCEDURE: HISTORICAL COLONOSCOPY; COMMENT: normal UPPER GASTROINTESTINAL ENDOSCOPY 08/25/2013 PROCEDURE: [facility] UPPER GI ENDOSCOPY PERFORMED; COMMENT: normal on omeprazole treatment. UPPER GASTROINTESTINAL ENDOSCOPY 11/11/2005 PROCEDURE: [facility] UPPER GI ENDOSCOPY PERFORMED; COMMENT: Dr Horner - normal OTHER SURGICAL HISTORY PROCEDURE: [facility] HEMORRHOID NTRNL & XTRNL 1 COLUMN W/FISSURECTO; COMMENT: [facility] - Dr. Petty COLONOSCOPY 09/25/2021 PROCEDURE: HISTORICAL COLONOSCOPY; COMMENT: normal ESOPHAGOGASTRODUODENOSCOPY 01/08/2022 PROCEDURE: [facility] EGD TRANSORAL BIOPSY SINGLE/MULTIPLE; COMMENT: EGD normal including biopsy TUBAL LIGATION 11/24/2018 PROCEDURE: HISTORICAL TUBAL LIGATION BUNIONECTOMY 2001 Right PROCEDURE: BUNION SURGERY, SIMPLE REMOVAL ANKLE SURGERY 06/2023 Left PROCEDURE: HISTORICAL ANKLE SURGERY; COMMENT: ligament repair Medical History Medical History Date Comments Historical Medical DX 12/11/2009 DX:Abnorma l Pap smear and cervical HPV (human papillomavirus); COMMENT: [facility] Anxiety DX:Anxiety; COMM ENT: followed by psychiatrist/ therapist in [place] Esophageal reflux DX:Esophageal reflux Bipolar depression (CMS/HCC V24, CMS/HCC V28) DX:Bipolar depression ([facility]); COMMENT: per patient, no records from psychiatrist Migraine DX:Migraine Fibromyalgia DX:Fibromyalgia; COMMENT: 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 Morel at [place] Fracture of wrist 1982 DX:Fracture of wrist; COMMENT: left Tinnitus, right 05/25/2011 DX:Tinnitus, rig ht Gastroparesis 07/18/2013 DX:Gastroparesis ; COMMENT: Gastric emptying study completed at [facility], followed by GI at he History of Papanicolaou smea r of cervix DX:History of Papanicolaou s mear of cervix; COMMENT: folowed by [facility] TOBACCO ROLLER, Bhavana Paulino Chronic headaches DX:Chronic hea daches; COMMENT: Followed by Dr. 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 Fibromyalgia DX:Fibromyalgia Gastroparesis DX:Gastroparesis Cervical spondylosis without myelopathy DX:Cervical spondylosis with out myelopathy Depressive disorder DX:Depressiv e disorder Hyperlipidemia DX:Hyperlipidemi a Early satiety DX:Early satiety Nausea DX:Nausea Globus sensation DX:Globus sensa tion Constipation DX:Constipation Fatigue DX:Fatigue Family History Medical History Relation Name Comments Colon polyps Aunt paternal ADD / ADHD Daughter 1 Asthma Daughter 1 ADD / ADHD Daughter 2 Alcohol abuse Father Arthritis Father Asthma Father Colon polyps Father Depression Father Diabetes Father Hypertension Father Other: Histoplasmosis Father Other: Ulcerative Colitis Father Other: gout Father Thyroid disease Father's side father, gra ndmother, cousins Arthritis Maternal Grandfather Coronary artery disease Maternal Grandfather Prostate cancer Maternal Grandfather Stroke Maternal Grandfather Arthritis Maternal Grandmother Coronary artery disease Maternal Grandmother Other: vaginal cancer Maternal Grandmother Arthritis Mother Diabetes Mother Hyperlipidemia Mother Hypertension Mother Arthritis Paternal Grandfather Coronary artery disease Paternal Grandfather Arthritis Paternal Grandmother Coronary artery disease Paternal Grandmother Asthma Sister Crohn's disease Sister Depression Sister Other: polycyctic ovarian syndrome Sister Suicide Attempts Uncle Relation Name Status Comments Aunt paternal Alive Daughter 1 Alive Daughter 2 Alive Daughter 3 Alive Father DM, bp, alcohol . Father's side Maternal Grandfather Maternal Grandmother Mother Alive dm, bp Paternal Grandfather Paternal Grandmother Sister Alive Uncle Social History Tobacco Use Types Packs/Day Years Used Date Smoking Tobacco: Never Smokeless Tobacco: Never Tobacco Cessation:Counseling Given: Not Answered Alcohol Use Standard Drinks/Week Comments No 0 (1 standard drink = 0.6 oz pur e alcohol) Housing Instability Answer Date Recorde d Are you worried that in the next 2 months you may not have stable housing? No 07/13/2024 Food Access & Nutrition Answer Date Rec orded Do you have access to a vari ety of food including fruits and vegetables? Yes 07/13/2024 Access to Healthcare Answer Date Record ed Within the last 3 months, ho w many times did you visit the emergency department for your medical care? 0 07/13/2024 Health Literacy Answer Date Recorded How often do you need to hav e someone help you when you read instructions, pamphlets, or other written material from your doctor or pharmacy? Never 07/13/2024 Caregiver: How often do you need to have someone help you when you read instructions, pamphlets, or other written material from your doctor or pharmacy? Not on file 07/13/2024 Financial Risk Answer Date Recorded How hard is it for you to pa y for the very basics like food, housing, medical care, and air conditioning / heating? Not very hard 07/13/2024 Transportation Answer Date Recorded Has the lack of transportati on kept you from meetings, work, or from getting things needed for daily living? No Has the lack of transportati on kept you from medical appointments or from getting medications? No 07/13/2024 Social Isolation Answer Date Recorded How often do you feel lonely or isolated from th ose around you? Often 07/13/2024 Food Risk Answer Date Recorded Within the past 12 months we worried whether our food would run out before we got money to buy more. Sometimes true 024 Within the past 12 months th e food we bought just didn't last and we didn't have money to get more. Sometimes true 07/13/2024 Dependent Care Answer Date Recorded Do you need help finding or paying for care for your loved ones. For example, childrens club attendant or elderly care for an older adult? No 07/13/2024 Education Answer Date Recorded Do you think completing more education or training, like finishing a GED, going to college, or learning a trade, would be helpful for you? No 07/13/2024 Employment and Income Answer Date Recor ded During the last four weeks, have you been actively looking for work? No 07/13/2024 Living Situation Answer Date Recorded What is your living situation? 1 09/12/2023 Comments No Sex and Gender Information Value Date Recorded Sex Assigned at Female 09/04/2024 7:58 AM EST Legal Sex Female 5:02 AM EST Gender Identity Female 09/04/2024 7:58 AM EST Sexual Orientation Not on file Obstetrics History Last Filed Vital Signs Vital Sign Reading Time Taken Comments Blood Pressure 102/68 07/13/2024 11:20 AM EST Pulse 68 07/13/2024 11:20 AM EST Temperature 36.7 ??C (98.1 ??F) 07/13/2024 11:[address] Respiratory Rate 18 07/13/2024 11:20 AM EST Oxygen Saturation - - Inhaled Oxygen Concentration - - Weight 73 kg (161 lb) 11/14/2024 9:37 AM EDT Height 149.9 cm (4' 11.02 ) 11/14/2024 9:37 AM E DT Body Mass Index 32.5 11/14/2024 9:37 AM EDT Plan of Treatment Upcoming Encounters Date Type Department Care Team (Late st Contact Info) Description 01/24/2025 9:10 AM EDT Appointment Radiology Department [address] [phone] 02/01/2025 8:45 AM EDT Office Visit Orthopedic Surgery [place] [address] [phone] Ignacio Alonzo, DPM [address] [address] 02/23/2025 11:00 AM EDT Office Visit Adult Medicine [address] [phone] Idania De La Torre MD [address] [place] [id number] Health Maintenance Due Date Last Done Comments Hepatitis B Vaccines (1 of 3 - 19+ 3-dose series) 1994 Medicare Annual Wellness Visit 08/15/2022 COVID-19 Vaccine ( season) 2024 06/18/2021, 05/28/2021 Influenza Vaccine (Season Ended) 2025 08/19/2022, 07/02/2021, 06/13/2021, Additional history exists Depression Screening 07/13/2025 07/13/2024 Social Influencers of Health Screening 07/13/2025 07/13/2024 DTaP,Tdap,and Td Vaccines (3 - Td or Tdap) 10/20/2025 10/20/2015, 07/21/2013 Breast Cancer Screening 07/20/2026 07/20/20, 01/18/2024, 01/18/2024, Additional history exists Cervical Cancer Screening: HPV 04/06/2028 04/06/2023 Cholesterol Screening (Lipid Panel) 03/01/2029 03/01/2024, 03/01/2024 Colorectal Cancer Screening: Colonoscopy 09/25/2031 09/25/2021 HIV Screening Completed 09/15/2013 Hepatitis C Screening Completed 09/15/2013 HIB Vaccines Aged Out No longer eligi ble based on patient's age to complete this topic HPV Vaccines Aged Out No longer eligi ble based on patient's age to complete this topic Hepatitis A Vaccines Aged Out No long er eligible based on patient's age to complete this topic IPV Vaccines Aged Out No longer eligi ble based on patient's age to complete this topic MMR Vaccines Aged Out No longer eligi ble based on patient's age to complete this topic Meningococcal ACWY Vaccine Aged Out N o longer eligible based on patient's age to complete this topic Meningococcal B Vaccine Aged Out No l onger eligible based on patient's age to complete this topic Pneumococcal Vaccine: Pediatrics (0 to 5 Years) and At-Risk Patients (6 to 64 Years) Aged Out No longer eligible based on patient's age to complete this topic RSV Immunization Patients Under 20 months Aged Out No longer eligible based on patient's age to complete this topic Varicella Vaccines Aged Out No longer eligible based on patient's age to complete this topic Procedures Procedure Name Priority Date/Time Associated Diagnosis Comments XR ANKLE 3+ VIEWS LEFT Routine 12/21/2024 9:37 AM EDT Follow-up exam MR ANKLE WO CONTRAST LEFT Routine 11/21/2024 5:35 PM EDT Arthritis of left ankle MG MAMMO DIGITAL DIAGNOSTIC W OTONIEL RIGHT Routine 07/20/2024 8:59 AM EST Other abnormal and inconclusive findings on diagnostic imaging of breast LIPID PANEL Routine 03/01/2024 HPV Routine 04/06/2023 COLONOSCOPY Routine 09/25/2021 HEPATITIS C SCREENING Routine 09/15/2013 HIV SCREENING Routine 09/15/2013 from Last 3 Months or Most Recently Relevant to Health Maintenance Results * XR Ankle 3+ Views Left (12/21/2024 9:37 AM EDT) Anatomical Region Laterality Modality Lower Extremities, Ankle Left Compute d Radiography Narrative 12/29/2024 11:43 AM EDT Left ankle 3 views No fracture no foreign body Appropriate alignment of the ankle joint noted with no signs of arthritic changes us Ignacio Alonzo DPM IMG XR PROCEDURES Final R esult * MR Ankle wo Contrast Left (11/21/2024 5:35 PM EDT) Anatomical Region Laterality Modality Lower Extremities, Ankle Left Magneti c Resonance 11/22/2024 8:46 AM EDT Impressions 11/22/2024 9:06 AM EDT Bone anchor is related to prior anterior tibiotalar and talofibular ligament repair. ??Evidence of old injury at the intact medial and lateral ankle ligaments. Thickening and high signal throughout the ligamentous structures in the sinus tarsus with edema throughout the sinus tarsus. 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 Mild posterior subtalar cartilage loss. -------- FINAL REPORT -------- Dictated By: ANCELMO HATFIELD Dictated Date: 11/22/2024 08:46 ET Assigned Physician: ANCELMO HATFIELD Reviewed and Electronically Signed By: ANCELMO HATFIELD Signed Date: 11/22/2024 09:06 ET Workstation ID: [id number] Transcribed By: Self Edit Transcribed Date: 11/22/2024 08:46 ET Narrative 11/22/2024 9:06 AM EDT PROCEDURE: Left ankle MRI INDICATION: Pain TECHNIQUE: Multiplanar, multisequence MRI of the left ankle Without contrast. COMPARISON: ??No priors available. FINDINGS: Bone anchor seen in the distal fibula related to prior anterior tibiofibular ligament repair. ??Tibiofibular ligaments are intact. Bone anchor within the lateral talus related to prior anterior talofibular ligament repair. ??Talofibular and calcaneofibular ligaments are intact. Thickening and high signal of the deltoid ligament and spring ligament indicative of old injury. ??No medial ligament tear. Lisfranc ligament complex is intact. No fracture or suspicious marrow replacing lesion. Surface irregularity of the articular cartilage seen at the posterior subtalar joint. ??Tibiotalar articular cartilage is relatively preserved. ??No joint effusion. Plantar fascia and Achilles tendon are within normal limits. Posterior tibial tendinosis without tear. ??Flexor tendons are intact. Peroneal tendons are intact. Anterior tibial and extensor tendons are intact. There is thickening and high signal of the ligamentous structures of the sinus tarsus with diffuse edema throughout the sinus tarsus. ??Tarsal tunnel is within normal limits. Muscle bulk is preserved. ??No fluid collection or mass. Procedure Note Ancelmo Hatfield MD - 11/22/2024 PROCEDURE: Left ankle MRI INDICATION: Pain TECHNIQUE: Multiplanar, multisequence MRI of the left ankle Withoutcontrast. COMPARISON: No priors available. FINDINGS: Bone anchor seen in the distal fibula related to prior anteriortibiofibular ligament repair. Tibiofibular ligaments are intact. Bone anchor within the lateral talus related to prior anterior talofibularligament repair. Talofibular and calcaneofibular ligaments are intact. Thickening and high signal of the deltoid ligament and spring ligamentindicative of old injury. No medial ligament tear. Lisfranc ligament complex is intact. No fracture or suspicious marrow replacing lesion. Surface irregularity of the articular cartilage seen at the posteriorsubtalar joint. Tibiotalar articular cartilage is relatively preserved.No joint effusion. Plantar fascia and Achilles tendon are within normal limits. Posterior tibial tendinosis without tear. Flexor tendons are intact. Peroneal tendons are intact. Anterior tibial and extensor tendons are intact. There is thickening and high signal of the ligamentous structures of thesinus tarsus with diffuse edema throughout the sinus tarsus. Tarsaltunnel is within normal limits. Muscle bulk is preserved. No fluid collection or mass. IMPRESSION: Bone anchor is related to prior anterior tibiotalar and talofibularligament repair. Evidence of old injury at the intact medial and lateralankle ligaments. Thickening and high signal throughout the ligamentous structures in thesinus tarsus with edema throughout the sinus tarsus. Findings may reflectsinus tarsi syndrome related to old subtalar ligamentous injury andongoing subtalar instability. Mild posterior subtalar cartilage loss. -------- FINAL REPORT -------- Dictated By: ANCELMO HATFIELD Dictated Date: 11/22/2024 08:46 ET Assigned Physician: ANCELMO HATFIELD Reviewed and Electronically Signed By: NACELMO HATFIELD Signed Date: 11/22/2024 09:06 ET Workstation ID: [id number] Transcribed By: Self Edit Transcribed Date: 11/22/2024 08:46 ET Ignacio Alonzo DPM IMG MRI PROCEDURES Final Result * MG Mammo Digital Diagnostic w Otoniel Right (07/20/2024 8:59 AM EST) Anatomical Region Laterality Modality Breast Right Mammography 07/20/2024 9:01 AM EST Impressions 07/20/2024 9:07 AM EST Previous asymmetry is not visualized. ??Patient can return to routine annual screening mammography. BREAST DENSITY: B - There are scattered areas of fibroglandular density. BI-RADS CATEGORY: 1 - NEGATIVE RECOMMENDATION: Return to annual schedule recommended for the right breast. MAMMO LOCATION: [facility], [address] [place] [address], [id number], . -------- FINAL REPORT -------- Dictated By: Tali Du Dictated Date: 07/20/2024 09:01 ET Assigned Physician: Tali Du Reviewed and Electronically Signed By: Tali Du Signed Date: 07/20/2024 09:07 ET Workstation ID: [id number] Transcribed By: Self Edit Transcribed Date: 07/20/2024 09:01 ET Narrative 07/20/2024 9:07 AM EST EXAM: MG MAMMO DIGITAL DIAGNOSTIC W OTONIEL RIGHT HISTORY: Six-month follow-up of a probably benign asymmetry in the anterior upper right breast. COMPARISON: As recent as 01/18/2024 and as far back as 11/10/2017 TECHNIQUE: Unilateral right ML and spot compression MLO views were obtained digitally with 3-D mammogram (digital breast tomosynthesis). Computer-aided detection was utilized in evaluation of this exam (CAD). FINDINGS: Previous asymmetry in the anterior upper breast is no longer present. ?? Procedure Note Tali Du MD - 07/20/2024 EXAM: MG MAMMO DIGITAL DIAGNOSTIC W OTONIEL RIGHT HISTORY: Six-month follow-up of a probably benign asymmetry in theanterior upper right breast. COMPARISON: As recent as 01/18/2024 and as far back as 11/10/2017 TECHNIQUE: Unilateral right ML and spot compression MLO views wereobtained digitally with 3-D mammogram (digital breast tomosynthesis).Computer-aided detection was utilized in evaluation of this exam (CAD). FINDINGS: Previous asymmetry in the anterior upper breast is no longer present. IMPRESSION: Previous asymmetry is not visualized. Patient can return to routineannual screening mammography. BREAST DENSITY: B - There are scattered areas of fibroglandular density. BI-RADS CATEGORY: 1 - NEGATIVE RECOMMENDATION: Return to annual schedule recommended for the rightbreast. MAMMO LOCATION: [facility], [address] [place] [address], [facility], . -------- FINAL REPORT -------- Dictated By: Tali Du Dictated Date: 07/20/2024 09:01 ET Assigned Physician: Tali Du Reviewed and Electronically Signed By: Tali Du Signed Date: 07/20/2024 09:07 ET Workstation ID: [id number] Transcribed By: Self Edit Transcribed Date: 07/20/2024 09:01 ET Marylu Jimenez MD IMG BI PROCEDURES Final Resu lt * (ABNORMAL) Lipid panel (03/01/2024) [facility] LDL/HDL Ratio 4 0 - 4 Triglycerides 64 0 - 150 mg/dL Cholesterol 204(A) 0 - 200 mg/dL HDL 57 >=40 mg/dL LDL Cholesterol 135(A) 0 - 100 mg/dL Blood Venous blood specimen / Unknown [facility] [facility] Provider LAB BLOOD ORDERABLES Tatiana l Result * Cervical Cancer Screening: HPV (04/06/2023) [facility] Cervical Cancer Screening: HPV no interpreta tion,abstr acted Result [facility] Provider HEALTH MAINTENANCE Final Result * Colonoscopy (09/25/2021) [facility] Colonoscopy no interpreta tion,abstr acted Anatomical Region Laterality Modality Other [facility] Provider HEALTH MAINTENANCE Final Result * HIV Screening (09/15/2013) [facility] HIV Screening abstracted [facility] Provider HEALTH MAINTENANCE Final Result * Hepatitis C Screening (09/15/2013) [facility] Hepatitis C Screening abstracted [facility] Provider HEALTH MAINTENANCE Final Result from Last 3 Months or Most Recently Relevant to Health Maintenance Insurance [facility] [employer] MEDIC[employer] Member Subscriber Plan / Payer (Ef fective 2022-Present) Name:Leisa So Relation to Subscriber:Self Name:Leisa So Payer ID:[id number] Group ID:[id number] Type:Not on file Address: [place] [address] [place] [phone] Care Teams Stucco Laborer Relationship Specialty Start Date End Date Idania De La Torre MD [address] [place] [phone] PCP - General Internal Medicine 07/13/24
== END 2025-01-05 10:57 | disposition home or self-care (01) ==
LOC: HO.HOS 08:49
PROVIDERS: PCP Internal Medicine; Visit Provider Physical Medicine & Rehabilitation
DX: M79.7 Fibromyalgia (principal); M79.18 Myalgia, other site; M25.511 Pain in right shoulder; G89.29 Other chronic pain; M19.011 Primary osteoarthritis, right shoulder; M25.512 Pain in left shoulder
CPT/HCPCS: 99214

== ENCOUNTER → 2025-01-05 09:58 | Outpatient (BNV) | payer OTHER, SELFPAY | PROVIDERS: PCP Internal Medicine; Visit Provider Radiology Diagnostic Radiology | DX: M25.512 Pain in left shoulder (principal) | CPT/HCPCS: 73030 ==

== ENCOUNTER 2025-01-05 10:22 | Outpatient (REF) | payer OTHER, SELFPAY ==
--- OUTSIDE RECORDS SUMMARY | 2025-01-05 11:26 | XMS_ITS | Clinical Summary ---
Author Organization [facility] Address [address] [place] [address] Phone Care Team Providers Care Ware Dresser Name Role Phone Idania De La Torre MD Primary Care Provider [phone] Allergies Active Allergy Reactions Criticality Noted Date [...] Date Diagnosed Date Anxiety 06/08/2024 Bipolar depression ([facility] V24, [facility] V28) Esophageal reflux 06/08/2024 Fibromyalgia 06/08/2024 Migraine 06/08/2024 Ganglion cyst of left foot 08/19/2022 Hyperlipidemia 09/25/2021 Overview (06/08/2024): 09/27 - ASCVD score .5% Neck pain 10/31/2020 Chronic insomnia 11/01/2017 Overview (06/08/2024): 10/2017 Diagnostic Sleep Study did not reveal sleep apnea. Erythromelalgia ([facility] V24) 09/13/2017 Chest pain 05/27/2014 Overview (06/08/2024): [...] Papanicolaou smear of cervix and cervical HPV [facility] IMO Update Fall 2015 Encounters Date Type Department Care Team Description 12/21/2024 9:45 AM EDT Office Visit Orthopedic Surgery [facility] [address] [phone] Ignacio Alonzo DPM Arthritis of left ankle (Primary Dx); Follow-up exam; Neuritis 11/21/2024 4:52 PM EDT - 11/21/2024 11:59 PM EDT Hospital Encounter [facility] MRI [address] [place] [phone] Arthritis of left ankle Discharge Disposition: Home or Self Care 11/14/2024 10:00 AM EDT Office Visit Orthopedic [facility] [address] [phone] Ignacio Alonzo DPM Arthritis of left ankle (Primary Dx); Other atopic dermatitis 10/11/2024 10:45 AM EST Office Visit [facility] [address] [phone] Ignacio Alonzo DPM Arthritis of left ankle [...] Surgery Date Site/Laterality Comments BUNIONECTOMY 2001 PROCEDURE: [place] CORRJ HLX VLGS BNCTY SESMDC W/DOUBLE OSTEOTOMY; COMMENT: right FLEXIBLE SIGMOIDOSCOPY 05/26/2011 PROCEDURE: HISTORICAL FLEXIBLE SIGMOIDOSCOPY; COMMENT: ext hemorrhoidal tags x 2 OTHER SURGICAL HISTORY 07/18/2013 PROCEDURE: NUCLEAR EXAM OF STOMACH EMPTYING; COMMENT: [facility] - delayed liquid and solid material gastric emptying suggesting gastroparesis. COLONOSCOPY 01/28/2016 PROCEDURE: HISTORICAL COLONOSCOPY; COMMENT: normal UPPER GASTROINTESTINAL ENDOSCOPY 08/25/2013 PROCEDURE: [place] UPPER GI ENDOSCOPY PERFORMED; COMMENT: normal on omeprazole treatment. UPPER GASTROINTESTINAL ENDOSCOPY 11/11/2005 PROCEDURE: [place] UPPER GI ENDOSCOPY PERFORMED; COMMENT: Dr Horner - normal OTHER SURGICAL HISTORY PROCEDURE: [place] HEMORRHOID NTRNL & XTRNL 1 COLUMN W/FISSURECTO; COM[place] [facility] [place] COLONOSCOPY 09/25/2021 PROCEDURE: HISTORICAL COLONOSCOPY; COMMENT: normal ESOPHAGOGASTRODUODENOSCOPY 01/08/2022 PROCEDURE: [place] EGD TRANSORAL BIOPSY SINGLE/MULTIPLE; COMMENT: EGD normal including biopsy TUBAL LIGATION 11/24/2018 PROCEDURE: HISTORICAL TUBAL LIGATION BUNIONECTOMY 2001 Right PROCEDURE: BUNION SURGERY, SIMPLE REMOVAL ANKLE SURGERY 06/2023 Left PROCEDURE: HISTORICAL ANKLE SURGERY; COMMENT: ligament repair Medical History Medical History Date Comments Historical Medical DX 12/11/2009 DX:Abnorma l Pap smear and cervical HPV (human papillomavirus); COMMENT: [facility] Anxiety DX:Anxiety; COMM ENT: followed by psychiatrist/ therapist in [place] Esophageal reflux DX:Esophageal reflux Bipolar depression (CMS/HCC V24, CMS/HCC V28) DX:Bipolar depression ([facility]); COMMENT: per patient, no records from psychiatrist Migraine DX:Migraine Fibromyalgia DX:Fibromyalgia; 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 Alonzo Fibromyalgia DX:Fibromyalgia Gastroparesis DX:Gastroparesis Cervical [...] care for your loved ones. For example, exceptional children teacher or elderly care for an older [...] 01/24/2025 9:10 AM EDT Appointment Radiology Department [address] [phone] 02/01/2025 8:45 AM EDT Office Visit Orthopedic Surgery - [place] [address] [phone] Ignacio Alonzo, DPM [address] [address] 02/23/2025 11:00 AM EDT Office Visit Adult Medicine [address] [phone] Idania De La Torre MD [address] [place] [address] Health Maintenance Due Date Last Done Comments [...] Signed Date: 11/22/2024 09:06 ET Workstation ID: [id number] Transcribed By: Self Edit Transcribed Date: 11/22/2024 [...] Signed Date: 11/22/2024 09:06 ET Workstation ID: [id number] Transcribed By: Self Edit Transcribed Date: 11/22/2024 [...] recommended for the right breast. MAMMO LOCATION: [facility], [address] [place] [address], [id number], . -------- FINAL REPORT -------- Dictated By: Tali Du Dictated Date: 07/20/2024 09:01 ET Assigned Physician: Tali Du Reviewed and Electronically Signed By: Tali Du Signed Date: 07/20/2024 09:07 ET Workstation ID: [id number] Transcribed By: Self Edit Transcribed Date: 07/20/2024 [...] schedule recommended for the rightbreast. MAMMO LOCATION: [facility], [address] [place] [address], [facility], . -------- FINAL REPORT -------- Dictated By: Tali Du Dictated Date: 07/20/2024 09:01 ET Assigned Physician: Tali Du Reviewed and Electronically Signed By: Tali Du Signed Date: 07/20/2024 09:07 ET Workstation ID: [id number] Transcribed By: Self Edit Transcribed Date: 07/20/2024 09:01 ET Marylu Jimenez MD IMG BI PROCEDURES Final Resu lt * (ABNORMAL) Lipid panel (03/01/2024) [facility] LDL/HDL Ratio 4 0 - 4 Triglycerides 64 0 - 150 mg/dL Cholesterol 204(A) 0 - 200 mg/dL HDL 57 >=40 mg/dL LDL Cholesterol 135(A) 0 - 100 mg/dL Blood Venous blood specimen / Unknown [facility] Provider LAB BLOOD ORDERABLES Tatiana l Result * Cervical Cancer Screening: HPV (04/06/2023) [facility] Cervical Cancer Screening: HPV no interpreta tion,abstr acted Result [facility] Provider HEALTH MAINTENANCE Final Result * Colonoscopy (09/25/2021) [facility] Colonoscopy no interpreta tion,abstr acted Anatomical Region Laterality Modality Other [facility] Provider HEALTH MAINTENANCE Final Result * HIV Screening (09/15/2013) [facility] HIV Screening abstracted [facility] Provider HEALTH MAINTENANCE Final Result * Hepatitis C Screening (09/15/2013) [facility] Hepatitis C Screening abstracted [facility] Provider HEALTH MAINTENANCE Final Result from Last 3 Months or Most Recently Relevant to Health Maintenance Insurance [facility] MED[employer] Member Subscriber Plan / Payer (Ef fective 2022-Present) Name:Leisa So Relation to Subscriber:Self Name:Leisa So Payer ID:[id number] Group ID:[id number] Type:Not on file Address: [place] [address] [place] [address] Care Teams Ware Dresser Relationship Specialty Start Date End Date Idania De La Torre MD [address] [place] [id number] PCP - General Internal Medicine 07/13/24
[2025-01-05 12:00] LABS: Rheumatoid Factor < 13.0 IU/mL (<15.0)
[2025-01-09 12:32] LABS: Anti Nuclear Antibody Pattern Nuclear, Homogeneous; Anti Nuclear Antibody Screen POSITIVE (NEGATIVE)
== END 2025-01-05 10:23 | disposition home or self-care (01) ==
LOC: HO.10HDL 10:22
PROVIDERS: Visit Provider Physical Medicine & Rehabilitation
DX: M25.50 Pain in unspecified joint (principal); M79.7 Fibromyalgia; M25.511 Pain in right shoulder; G89.29 Other chronic pain; M19.011 Primary osteoarthritis, right shoulder; M25.512 Pain in left shoulder
CPT/HCPCS: 36415; 73030; 86038; 86039; 86431; 99212

== ENCOUNTER → 2025-01-24 17:40 | Outpatient (BNV) | payer OTHER, SELFPAY | PROVIDERS: PCP Internal Medicine; Visit Provider Specialist | DX: M19.011 Primary osteoarthritis, right shoulder (principal) | CPT/HCPCS: 73221 ==

== ENCOUNTER 2025-01-24 17:45 | Outpatient (REF) | payer OTHER, SELFPAY ==
--- NOTE | ~2025-01-24 | MR_ITS ---
CLINICAL HISTORY: S46.001A - Unspecified injury of muscle(s) and tendon(s) of the rotator ... --- Add itional Notes or Special Instructions: evaluate biceps or RTC tear MR right shoulder without gadolinium Comparison: 05/17/2024 Findings: No acute fractures. No pathologic bone lesions. There are arthritic/degenerative changes in the acromioclavicular joint. Type II acromion without downsloping. No joint effusion. No rotator cuff tears. The long head of biceps is intact. Glenoid labrum is intact. IMPRESSION: 1. AC joint degenerative/arthritic changes. This document has been electronically signed by: Armin Armendariz MD on 01/26/2025 08:57:24
--- OUTSIDE RECORDS SUMMARY | 2025-01-24 17:48 | XMS_ITS | Clinical Summary ---
Author Organization [facility] Address [address] [place] [address] Phone Care Team Providers Care Ditch Digger Name Role Phone Idania De La Torre MD Primary Care Provider [phone] Allergies Active Allergy Reactions Criticality Noted Date Comments Cortisone Medium 08/15/2016 Other Reaction(s): OTHER Patient developed blurred vision after the injection and also it induced her menses Sumatriptan Succinate 08/28/2010 Tightning in chest Eletriptan 08/28/2010 Tightning in chest Oxcarbazepine 08/28/2010 Itching/Pruritus Venlafaxine 11/25/2015 Tight throat Medications multivit-minera ls/folic acid (ADULT MULTIVITAMIN GUMMIES ORAL) Take by mouth. A ctive ubrogepant (UBRELVY) 100 mg tablet Take by mouth daily as needed. Active albuterol HFA (PROAIR HFA ; PROVENTIL HFA ; VENTOLIN HFA) 90 mcg/actuation inhaler Inhale 2 Puffs into the lungs every 4 hours as needed for Cough or Wheezing. 08/02/20 23 Active buPROPion XL (WELLBUTRIN XL) 150 mg 24 hr tablet 450 mg daily 10/22/19 23 Active buPROPion XL (WELLBUTRIN XL) 300 mg 24 hr tablet 450 mg. 01/02/20 21 Active cholecalciferol (VITAMIN D-3) 50 mcg (2,000 unit) tablet Take 1 Tab by mouth daily. 10/23/19 20 Active diazePAM (VALIUM) 5 mg tablet Take 5 mg by mouth every 8 hours as needed. Active diclofenac (VOLTAREN) 50 mg EC tablet TAKE 1 TABLET BY MOUTH TWICE A DAY 01/11/20 24 Active diclofenac (VOLTAREN) 1 % topical gel APPLY TOPICALLY 2 TIMES DAILY NEEDED FOR PAIN. 11/05/19 24 Active docusate sodium (COLACE) 100 mg capsule TAKE 1 CAPSULE BY MOUTH TWICE A DAY 01/24/20 24 Active estradioL (VIVELLE-DOT) 0.05 mg/24 hr APPLY 1 PATCH TWICE A WEEK BY TRANSDERMAL ROUTE FOR 84 DAYS. 03/24/20 21 Active famotidine (PEPCID) 20 mg tablet TAKE 1 TABLET BY MOUTH 2 TIMES DAILY NEEDED FOR HEARTBURN. 04/13/20 23 Active fluticasone propionate (FLONASE) 50 mcg/actuation nasal spray SPRAY 2 SPRAYS BY NASAL ROUTE DAILY 10/18/19 23 Active gabapentin (NEURONTIN) 300 mg capsule Take 1 Capsule by mouth 3 times daily. 07/01/20 23 Active loperamide (IMODIUM) 2 mg capsule TAKE 1 CAPSULE BY MOUTH 4 TIMES DAILY NEEDED FOR DIARRHEA. 03/08/20 24 Active magnesium oxide 200 mg magnesium tablet,chewable Take 200 mg by mouth daily. Active medroxyPROGESTE Leandro (PROVERA) 2.5 mg tablet Take 2.5 mg by mouth daily. 03/24/20 21 Active ondansetron (ZOFRAN) 4 mg tablet Take 1 Tablet by mouth every 8 hours as needed for Nausea. 07/01/20 23 Active pantoprazole (PROTONIX) 20 mg EC tablet TAKE 1 TABLET BY MOUTH 2 TIMES DAILY (BEFORE MEALS). TAKE ON EMPTY STOMACH, WAIT 30 MINS AND THEN EAT TO ACTIVATE THE MEDIATION- BEFORE BREAKFAST AND SUPPER 05/07/20 23 Active senna (SENOKOT) 8.6 mg tablet TAKE 1 TABLET BY MOUTH EVERY DAY 05/27/20 23 Active terbinafine (LamISIL) 250 mg tablet Take 1 Tablet by mouth daily for 90 days Active plecanatide (TRULANCE) 3 mg tablet Take 1 Tablet by mouth daily. Active baclofen (LIORESAL) 10 mg tablet Take 1 tablet (10 mg total) by mouth 3 (three) times a day for 7 days. 21 each 07/17/20 24 Active dicyclomine (BENTYL) 10 mg capsule TAKE 1 CAPSULE BY MOUTH 4 TIMES DAILY (BEFORE MEALS AND NIGHTLY). 360 capsule 1 11/15/19 25 Active levothyroxine (SYNTHROID, LEVOTHROID) 50 mcg tablet TAKE 1 TABLET BY MOUTH EVERY DAY 90 tablet 01/10/20 25 Active metoclopramide (REGLAN) 10 mg tablet TAKE 1 TABLET BY MOUTH 3 TIMES A DAY NEEDED FOR VOMITING 90 tablet 1 01/10/20 25 Active levothyroxine (SYNTHROID, LEVOTHROID) 50 mcg tablet TAKE 1 TABLET BY MOUTH EVERY DAY 11/04/19 24 025 Discontinued metoclopramide (REGLAN) 10 mg tablet TAKE 1 TABLET BY MOUTH 3 TIMES A DAY NEEDED FOR VOMITING 90 tablet 1 11/15/19 25 025 Discontinued Active Problems Problem Noted Date Diagnosed Date Anxiety 06/08/2024 Bipolar depression ([facility] V24, [facility] V28) Esophageal reflux 06/08/2024 Fibromyalgia 06/08/2024 Migraine 06/08/2024 Ganglion cyst of left foot 08/19/2022 Hyperlipidemia 09/25/2021 Overview (06/08/2024): 09/27 - ASCVD score .5% Neck pain 10/31/2020 Chronic insomnia 11/01/2017 Overview (06/08/2024): 10/2017 Diagnostic Sleep Study did not reveal sleep apnea. Erythromelalgia ([facility] V24) 09/13/2017 Chest pain 05/27/2014 Overview (06/08/2024): [facility] ER visit 05/21/14, 01/13 precordial left-sided chest pain radiating into her [...] Papanicolaou smear of cervix and cervical HPV [facility] IMO Update Fall 2015 Encounters Date Type Department Care Team Description 01/24/2025 8:49 AM EDT Hospital Encounter Radiology Department - [address] [phone] Encounter for screening mammogram for breast cancer 12/21/2024 9:45 AM EDT Office Visit Orthopedic Surgery [facility] [address] [phone] Ignacio Alonzo DPM Arthritis of left ankle (Primary Dx); Follow-up exam; Neuritis 11/21/2024 4:52 PM EDT - 11/21/2024 11:59 PM EDT Hospital Encounter [facility] MRI [address] [place] [id number] Arthritis of left ankle Discharge Disposition: Home or Self Care 11/14/2024 10:00 AM EDT Office Visit Orthopedic [facility] [address] [phone] Ignacio Alonzo, DPM Arthritis of left ankle (Primary Dx); Other atopic dermatitis from Last 3 Months Immunizations Name Administration Dates Next Due Influenza Quadravalent, MDCK , 0.5ml, preservative free (Flucelvax) 6mo and older 08/19/2022,06/21/2020 Influenza Quadravalent, MDCK , 0.5ml, with preservative (Flucelvax) 6mo and older 06/28/2018 Influenza trivalent, with preservative (Fluzone; Afluria) 6mo and older 09/22/2019,06/09/2016,08/20/2014,2012,08/28/2010 Influenza, Unspecified 07/02/2021,09/22/2019, [employer] SARS-CoV-2 COVID-19, mRNA, LNP-S, preservative free 06/18/2021,05/28/2021 Tdap Tetanus diptheria acell ular pertussis (Boostrix; Adacel) 7yo and older 10/20/2015,07/21/2013 Surgical History Surgery Date Site/Laterality Comments BUNIONECTOMY 2001 PROCEDURE: NE CORRJ HLX VLGS BNCTY SESMDC W/DOUBLE OSTEOTOMY; COMMENT: right FLEXIBLE SIGMOIDOSCOPY 05/26/2011 PROCEDURE: HISTORICAL FLEXIBLE SIGMOIDOSCOPY; COMMENT: ext hemorrhoidal tags x 2 OTHER SURGICAL HISTORY 07/18/2013 PROCEDURE: NUCLEAR EXAM OF STOMACH EMPTYING; COMMENT: [facility] - delayed liquid and solid material gastric emptying suggesting gastroparesis. COLONOSCOPY 01/28/2016 PROCEDURE: HISTORICAL COLONOSCOPY; COMMENT: normal UPPER GASTROINTESTINAL ENDOSCOPY 08/25/2013 PROCEDURE: NE UPPER GI ENDOSCOPY PERFORMED; COMMENT: normal on omeprazole treatment. UPPER GASTROINTESTINAL ENDOSCOPY 11/11/2005 PROCEDURE: NE UPPER GI ENDOSCOPY PERFORMED; COMMENT: Dr Horner - normal OTHER SURGICAL HISTORY PROCEDURE: NE HEMORRHOID NTRNL & XTRNL 1 COLUMN W/FISSURECTO; COM[place] [facility] [place] COLONOSCOPY 09/25/2021 PROCEDURE: HISTORICAL COLONOSCOPY; COMMENT: normal ESOPHAGOGASTRODUODENOSCOPY 01/08/2022 PROCEDURE: NE EGD TRANSORAL BIOPSY SINGLE/MULTIPLE; COMMENT: EGD normal including biopsy TUBAL LIGATION 11/24/2018 PROCEDURE: HISTORICAL TUBAL LIGATION BUNIONECTOMY 2001 Right PROCEDURE: BUNION SURGERY, SIMPLE REMOVAL ANKLE SURGERY 06/2023 Left PROCEDURE: HISTORICAL ANKLE SURGERY; COMMENT: ligament repair Medical History Medical History Date Comments Historical Medical DX 12/11/2009 DX:Abnorma l Pap smear and cervical HPV (human papillomavirus); COMMENT: [facility] Anxiety DX:Anxiety; COMM ENT: followed by psychiatrist/ therapist in [place] Esophageal reflux DX:Esophageal reflux Bipolar depression (CMS/HCC V24, CMS/HCC V28) DX:Bipolar depression ([facility]); COMMENT: per patient, no records from psychiatrist Migraine DX:Migraine Fibromyalgia DX:Fibromyalgia; 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 Alonzo Fibromyalgia DX:Fibromyalgia Gastroparesis DX:Gastroparesis Cervical [...] your loved ones. For example, child care assistant or elderly care for an older adult? [...] Sexual Orientation Not on file Obstetrics History Para Term AB IAB SAB Ectopic Multiple Livin g Live Births 3 3 3 3 Date Outcome GA Total Labor Labor/2nd/3rd Weight Sex Type Anes PTL [place] A1 A5 Name Clin Term Term Term Last Filed Vital Signs Vital Sign Reading [...] Care Team (Late st Contact Info) Description 02/01/2025 8:45 AM EDT Office Visit Orthopedic Surgery - [place] [address] [phone] Ignacio Alonzo, DPM [address] [address] 02/23/2025 11:00 AM EDT Office Visit Adult Medicine [address] [phone] Idania De La Torre MD [address] [place] [phone] Health Maintenance Due Date Last Done Comments [...] Tdap) 10/20/2025 10/20/2015, 07/21/2013 Breast Cancer Screening 01/24/2027 01/25/20 25, 07/20/2024, 01/18/2024, Additional history exists Cervical Cancer Screening: [...] Procedure Name Priority Date/Time Associated Diagnosis Comments MG MAMMO DIGITAL SCREENING W OTONIEL BILAT Routine 01/24/2025 9:24 AM EDT Encounter for screening mammogram for breast cancer XR ANKLE 3+ VIEWS LEFT Routine 12/21/2024 9:37 AM EDT Follow-up exam MR ANKLE WO CONTRAST LEFT Routine 11/21/2024 5:35 PM EDT Arthritis of left ankle LIPID PANEL Routine 03/01/2024 HPV Routine 04/06/2023 COLONOSCOPY Routine 09/25/2021 HEPATITIS C SCREENING Routine 09/15/2013 HIV SCREENING Routine 09/15/2013 from Last 3 Months or Most Recently Relevant to Health Maintenance Results * MG Mammo Digital Screening w Otoniel bilat (01/24/2025 9:24 AM EDT) Anatomical Region Laterality Modality Breast Bilateral Mammography 01/24/2025 11:2 9 AM EDT Impressions 01/24/2025 11:37 AM EDT BILATERAL BREASTS: Negative, no evidence of malignancy. Normal interval follow- up is recommended in 12 months. BREAST DENSITY: B - There are scattered areas of fibroglandular density. BI-RADS CATEGORY: 1 - NEGATIVE RECOMMENDATION: Screening bilateral mammogram is recommended in 1 year. Mammo Location: [facility], [address] [place] [address], [phone], . -------- FINAL REPORT -------- Dictated By: Ananth Miramontes Dictated Date: 01/24/2025 11:29 ET Assigned Physician: Ananth Miramontes Reviewed and Electronically Signed By: Ananth Miramontes Signed Date: 01/24/2025 11:37 ET Workstation ID: [id number] Transcribed By: Self Edit Transcribed Date: 01/24/2025 11:29 ET Narrative 01/24/2025 11:37 AM EDT STUDY: Bilateral screening mammography with tomosynthesis and CAD TECHNIQUE: Bilateral full-field digital screening mammography is obtained and read in conjunction with computer-aided detection. ??Tomosynthesis as well as 2-D C view imaging were obtained. ?? COMPARISON: Comparison made to multiple prior, most recent right diagnostic mammogram on July 20, 2024, and most remote bilateral mammogram November 10, 2017. BILATERAL BREASTS: No significant masses, suspicious calcifications or other abnormalities are seen in either breast. Procedure Note Ananth Miramontes MD - 01/24/2025 STUDY: Bilateral screening mammography with tomosynthesis and CAD TECHNIQUE: Bilateral full-field digital screening mammography is obtainedand read in conjunction with computer-aided detection. Tomosynthesis aswell as 2-D C view imaging were obtained. COMPARISON: Comparison made to multiple prior, most recent rightdiagnostic mammogram on July 20, 2024, and most remote bilateralmammogram November 10, 2017. BILATERAL BREASTS: No significant masses, suspicious calcifications orother abnormalities are seen in either breast. IMPRESSION: BILATERAL BREASTS: Negative, no evidence of malignancy. Normal intervalfollow-up is recommended in 12 months. BREAST DENSITY: B - There are scattered areas of fibroglandular density. BI-RADS CATEGORY: 1 - NEGATIVE RECOMMENDATION: Screening bilateral mammogram is recommended in 1 year. Mammo Location: [facility], [address] [place] [address], [phone], . -------- FINAL REPORT -------- Dictated By: Ananth Miramontes Dictated Date: 01/24/2025 11:29 ET Assigned Physician: Ananth Miramontes Reviewed and Electronically Signed By: Ananth Miramontes Signed Date: 01/24/2025 11:37 ET Workstation ID: [id number] Transcribed By: Self Edit Transcribed Date: 01/24/2025 11:29 ET us Idania De La Torre MD IMG BI PROCEDURES Final Result * XR Ankle 3+ Views Left (12/21/2024 [...] Signed Date: 11/22/2024 09:06 ET Workstation ID: [id number] Transcribed By: Self Edit Transcribed Date: 11/22/2024 [...] Signed Date: 11/22/2024 09:06 ET Workstation ID: [id number] Transcribed By: Self Edit Transcribed Date: 11/22/2024 08:46 ET Ignacio Alonzo DPAnthony IMG MRI PROCEDURES Final Result * (ABNORMAL) Lipid panel (03/01/2024) [facility] LDL/HDL Ratio 4 0 - 4 Triglycerides 64 0 - 150 mg/dL Cholesterol 204(A) 0 - 200 mg/dL HDL 57 >=40 mg/dL LDL Cholesterol 135(A) 0 - 100 mg/dL Blood Venous blood specimen / Unknown Result [facility] Historical Provider LAB BLOOD ORDERABLES Tatiana l Result * Cervical Cancer Screening: HPV (04/06/2023) [facility] Cervical Cancer Screening: HPV no interpreta tion,abstr acted Result [facility] Historical Provider HEALTH MAINTENANCE Final Result * Colonoscopy (09/25/2021) [facility] Colonoscopy no interpreta tion,abstr acted Anatomical Region Laterality Modality Other Result [facility] Historical Provider HEALTH MAINTENANCE Final Result * HIV Screening (09/15/2013) [facility] HIV Screening abstracted Historical Provider HEALTH MAINTENANCE Final Result * Hepatitis C Screening (09/15/2013) [facility] Hepatitis C Screening abstracted Historical Provider HEALTH MAINTENANCE Final Result from Last 3 Months or Most Recently Relevant to Health Maintenance Insurance [facility] MEDIC[facility] Member Subscriber Plan / Payer (Ef fective 2022-Present) Name:ARSENIO SO Relation to Subscriber:Self Name:Arsenio So Payer ID:[id number] Group ID:[id number] Type:Not on file Address: [facility] [address] [address] Care Teams Ditch Digger Relationship Specialty Start Date End Date Idania De La Torre MD [address] [place] [address] PCP - General Internal Medicine 07/13/24
== END 2025-01-24 17:46 | disposition home or self-care (01) ==
LOC: HO.MRI 17:45
PROVIDERS: PCP Internal Medicine; Visit Provider Physical Medicine & Rehabilitation
DX: S46.001A Unspecified injury of muscle(s) and tendon(s) of the rotator cuff of right shoulder, initial encounter (principal); M25.50 Pain in unspecified joint
CPT/HCPCS: 73221

== ENCOUNTER 2025-02-16 08:44 | Outpatient (AMB) | payer OTHER, SELFPAY ==
--- NOTE | 2025-02-16 08:51 | MHC.OFFVIS ---
Vital Signs 02/16/25 08:52 Height 4 ft 11 in Weight 145 lb BMI 29.3 Intake Visit Reasons: OV - Right Shoulder MRI review Intake Note: Leisa is a 49 year old right hand dominant female who presents today for an MRI review of her Right Shoulder. At her last visit lab work was also ordered and completed on 01/05/25. Patient reports that the right shoulder feels fine but her concern is the left shoulder. Patient states at last visit she had an X ray done and wanted to retouch the concern. Allergies oxcarbazepine [Trileptal] Allergy (Intermediate, Verified 02/16/25 08:54) hives sumatriptan [Imitrex] Allergy (Intermediate, Verified 02/16/25 08:54) increased heart rate venlafaxine Allergy (Intermediate, Verified 02/16/25 08:54) increased heart rate Cortisone Allergy (Intermediate, Uncoded 02/16/25 08:54) visual disturbance Relpax Allergy (Intermediate, Uncoded 02/16/25 08:54) throat swelling HPI Comments Details: Since the patient was last seen, we obtain an MRI of shoulder which reported AC joint arthrosis and type 2 acromion. Ordering Physician: Tonya Corrales Date of Service: 01/24/25 Procedure(s): MR shoulder RT wo con Accession Number(s): [id number] cc: Idania De La Torre MD; Tonya Corrales~ CLINICAL HISTORY: S46.001A - Unspecified injury of muscle(s) and tendon(s) of the rotator ... --- Additional Notes or Special Instructions: evaluate biceps or RTC tear MR right shoulder without gadolinium Comparison: 05/17/2024 Findings: No acute fractures. No pathologic bone lesions. There are arthritic/degenerative changes in the acromioclavicular joint. Type II acromion without downsloping. No joint effusion. No rotator cuff tears. The long head of biceps is intact. Glenoid labrum is intact. IMPRESSION: 1. AC joint degenerative/arthritic changes. This document has been electronically signed by: Armin Armendariz MD on 01/26/2025 08:57:24 Right side is fine, mild weakness when she reaching over with some pressure, with anterior pain. She is more concern on left side. She feels it locks, more painful, more weak than right side. Left xray was normal. [facility] Medical History History of abnormal cervical Pap smear Anal fissure and fistula Fibromyalgia Surgical History Hx of tubal ligation H/O foot surgery Family History Father HTN (hypertension) Hypothyroid Diabetes Hyperlipidemia Mother HTN (hypertension) Diabetes Hyperlipidemia Social History Household Members: Children Housing: House Alcohol intake: never Patient Tobacco Use Status: Never used Tobacco Current occupational status: disabled Physical Exam Vital Signs: BMI result Body Mass Index 29.3 Constitutional: Patient appears to be in no acute distress, well nourished and well developed. MSK: Inspection reveals appropriate head and neck positioning. Left shoulder tender anteriorly almost at deltoid. AC joint nontender. Bilateral shoulder ROM WNL both passive and active. No ligamentous laxity or crepitance. No increased effusion. Bilateral Empty can test is negative. Bilateral Speed's test is negative. Bilateral Hawkin's test is positive, bilateral anterior pain. Crepitus noted on left shoulder. Strength is 5/5 in all muscle groups tested. No increased tone noted. Neurological: Neurologic examination of the upper and lower extremities was nonfocal with intact sensation, muscle stretch reflexes and without focal motor deficits . Gait is non-antalgic without loss of balance. Results Reviewed Results Reviewed: EXAMINATION: XR SHOULDER, LEFT CLINICAL INFORMATION: M25.512 - Pain in left shoulder COMPARISON: None available. TECHNIQUE: 2 views of the left shoulder. FINDINGS: The bones and soft tissues are normal. No fracture. Glenohumeral and acromioclavicular alignment is anatomic with normal joint space. No abnormal soft tissue calcifications. XR/XR shoulder LT min 2V IMPRESSION: Normal left shoulder. Electronically signed by: Russ Aleman MD 01/05/2025 11:59 AM EDT RP Assessment & Plan Assessment & Plan (1) Arthritis of right acromioclavicular joint: Code(s): M19.011 - Primary osteoarthritis, right shoulder Category: Medical (2) Joint pain: Code(s): M25.50 - Pain in unspecified joint Category: Medical Qualifiers: Joint pain location: shoulder Laterality: bilateral Qualified Code(s): M25.511 - Pain in right shoulder; M25.512 - Pain in left shoulder Plan MRI right shoulder did not show rotator cuff tear. Left shoulder x-ray was normal. Exam does not show any signs of rotator cuff injury. Positive BASILIA but negative RF. Patient is seeing Rheumatology next week. Recommending starting physical therapy for both shoulders. Patient however will have difficulty going to PT due to family schedule. She is also able to do exercises on her own at home in the meantime. We talked about some safe exercises to do. She will touch [facility] in April if she wants to referral for PT by that time. Assessment and plan discussed with patient, and patient was agreeable. All questions were answered thoroughly. We will touch [facility] after she sees Rheumatology. Tonya Wilson MD, REMI Board Certified, [place] [employer] and Rehabilitation (ABPMR) Board Certified, [place] Board of Electrodiagnostic Medicine (ABEM) Coding Level of Care Code Est Pt Level 3 (03332) Diagnoses Arthritis of right acromioclavicular joint M19.011 Pain of both shoulder joints M25.511; M25.512 Joint pain location: shoulder Laterality: bilateral
[2025-02-16 08:52] VITALS: BMI 29.3
--- OUTSIDE RECORDS SUMMARY | 2025-02-16 08:56 | XMS_ITS | Encounter Summary ---
Author Organization [facility] [place] [address] Care Team Providers Care Radar Operator Name Role Phone Idania De La Torre MD Primary Care Provider [phone] Encounter Details Date Type Department Care Team ([facility] st Contact Info) Description 02/13/2025 Telephone Orthopedic Surgery - [place] [address] [phone] Ignacio Alonzo, DPM [address] [address] Social History Tobacco Use Types Packs/Day Years Used Date Smoking Tobacco: Never Smokeless Tobacco: Never Alcohol Use Standard Drinks/Week Comments No 0 [...] your loved ones. For example, child care provider or elderly care for an older adult? [...] AM EST Sexual Orientation Not on file documented as of this encounter Progress Notes * Laila Metz - 02/13/2025 9:52 AM EDT Pt rcvd cortisone (end of January) it is not working and she is in extreme pain Please reach out to discuss [phone] documented in this encounter Plan of Treatment Upcoming Encounters Date Type Department Care Team (Late st Contact Info) Description 02/23/2025 11:00 AM EDT Office Visit Adult Medicine [facility] [address] [place] [address] Idania De La Torre MD [address] [place] [address] 03/12/2025 2:45 PM EDT Office Visit Orthopedic Surgery - [place] [address] [phone] Ignacio Alonzo DPM [address] [address] documented as of this encounter Visit Diagnoses Not on filedocumented in this encounter Additional Health Concerns Assessment Noted Time PHQ-9 Depression Total Score: 18 024 12:59 PM EST documented as of this encounter Care Teams Radar Operator Relationship Specialty Start Date End Date Idania De La Torre MD [address] [place] [phone] PCP - General Internal Medicine 07/13/24 documented as of this encounter
== END 2025-02-16 09:07 | disposition home or self-care (01) ==
LOC: HO.HOS 08:44
PROVIDERS: PCP Internal Medicine; Visit Provider Physical Medicine & Rehabilitation
DX: M19.011 Primary osteoarthritis, right shoulder (principal); M25.511 Pain in right shoulder; M25.512 Pain in left shoulder
CPT/HCPCS: 99213

== ENCOUNTER → 2025-02-16 08:44 | Outpatient (BNVA) | payer OTHER, SELFPAY | PROVIDERS: PCP Internal Medicine; Visit Provider Physical Medicine & Rehabilitation | DX: M25.512 Pain in left shoulder (principal); M19.011 Primary osteoarthritis, right shoulder; M25.511 Pain in right shoulder | CPT/HCPCS: 99212 ==

== ENCOUNTER 2025-02-21 13:43 | Outpatient (AMB) | payer OTHER, SELFPAY ==
[2025-02-21 13:48] VITALS: BP 120/68; PULSE 79; O2SAT 97; BMI 31.5
--- NOTE | 2025-02-21 13:48 | A.OFFVIS_ITS ---
Vital Signs 02/21/25 13:48 Height 4 ft 11 in Weight 156 lb 1.396 oz BMI 31.5 BP 120/68 Blood Pressure Location Lt brachial Position Sitting Pulse 79 Pulse Source Pulse Oximeter Pulse Oximetry (%) 97 Oxygen Delivery Method Room Air Intake Visit Reasons: FMS Intake Note: Patient last seen by Doctor Suresh Zhu 06/08/24. Patient presents for FMS follow up. Patient would like to discuss the labs today. Patient concerned of tremors on her right side. Allergies oxcarbazepine (Trileptal) Allergy (Intermediate, Verified 02/21/25 13:53) hives sumatriptan (Imitrex) Allergy (Intermediate, Verified 02/21/25 13:53) increased heart rate venlafaxine Allergy (Intermediate, Verified 02/21/25 13:53) increased heart rate Cortisone Allergy (Intermediate, Uncoded 02/21/25 13:53) visual disturbance Relpax Allergy (Intermediate, Uncoded 02/21/25 13:53) throat swelling Medication List - Last Reconciled 02/21/25 by Leatha Pa MD albuterol sulfate 90 mcg/actuation 2 puffs inhalation Q4H PRN ascorbic acid (vitamin C) 500 mg PO DAILY bupropion HCl XL (Wellbutrin XL) 300 mg PO QAM bupropion HCl XL 150 mg PO QAM cetirizine 10 mg PO DAILY cholecalciferol (vitamin D3) 50 mcg PO DAILY diazepam 5 mg PO BID PRN diclofenac sodium 50 mg PO BID diclofenac sodium 1% topical dicyclomine 10 mg PO BID docusate sodium 100 mg PO BID estradiol 1 patch transdermal 2XW famotidine (Pepcid) 20 mg PO BEDTIME PRN fluticasone propionate 50 mcg/actuation 2 sprays intranasal DAILY PRN gabapentin 300 mg PO TID galcanezumab-gnlm (Emgality Pen) mg subcut levothyroxine 50 mcg PO DAILY magnesium 200 mg PO DAILY medroxyprogesterone 2.5 mg PO DAILY metoclopramide HCl (Reglan) 10 mg PO Q6H PRN ondansetron HCl 4 mg PO Q8H PRN pantoprazole 20 mg PO BID plecanatide (Trulance) 3 mg PO DAILY terbinafine HCl 250 mg PO DAILY tizanidine 4 mg PO BEDTIME PRN ubrogepant (Ubrelvy) mg PO HPI Comments Details: Patient is a 49 y.o. female with bipolar disorder/depression, anxiety, migra nademe, GERD, HLD, and fibromyalgia here today for follow up Interval History: Patient last seen 06/[address] Zhu. At that time she was following up for fibromyalgia. She was having right-sided tremors. She had a brain MRI which was negative. She eventually a neurologist, Dr. Hopson. She was told it was stress-induced tremors. She also having sharp pains in her legs especially with walking. Also complaining of bilateral shoulder pain. She was evaluated by Dr. Tonya Corrales (Physiatry). She received a right shoulder injection a few weeks ago by Physiatry. Had an MRI of the right shoulder showing no tears States that she is still concerned about her tremors and would like a new neurologist. Concerned about her left shoulder. Rheumatologic History: Fibromyalgia Left ankle s/p tendon repair Current Rheumatology Medication(s): Gabapentin 300 tid Tizanidine 4mg bedtime prn PFSH Medical History History of abnormal cervical Pap smear Anal fissure and fistula Fibromyalgia Surgical History Hx of tubal ligation H/O foot surgery Family History Father HTN (hypertension) Hypothyroid Diabetes Hyperlipidemia Mother HTN (hypertension) Diabetes Hyperlipidemia Social History Household Members: Children Housing: House Alcohol intake: never Patient Tobacco Use Status: Never used Tobacco Current occupational status: disabled Review of Systems Const Details: Review of Systems Constitutional: Denies fever, chills, weight loss ENT: Denies vision changes, eye pain or eye redness, dental caries, dry mouth GI: Denies nausea, vomiting, diarrhea, abdominal pain, change in BM Pulm: Denies SOB, [place], hemoptysis, wheezing Cards: Denies chest pain, palpitations Skin: Denies Raynaud's, rash, nail changes, photosensitivity, THEATRICAL AGENT: Denies headaches, weakness, paresthesias, recurrent falls MSK: as per HPI All other systems reviewed and are unremarkable except noted above Physical Exam Vital Signs: Last Vital Signs Pulse 79 02/21/25 13:48 BP 120/68 02/21/25 13:48 Pulse Ox 97 02/21/25 13:48 Oxygen Delivery Method Room Air 02/21/25 13:48 BMI result Body Mass Index 31.5 Vital signs reviewed Physical Examination CONSTITUITIONAL Patient alert and cooperative. Well appearing and in no apparent painful distress HEENT Conjunctiva and sclera clear. No lymphadenopathy. CHEST/RESPIRATORY SYSTEM Normal respiratory effort and able to speak in complete sentences. Clear to auscultation bilaterally. No crackles, rales, rhonchi, wheezes heard. CARDIAC SYSTEM Regular rate and rhythm. S1 and S2 heard no murmurs. Radial pulses intact bila terally MSK Hands * Right Hand: Able to make a fist. No swelling or tenderness to palpation of these joints. No deformities noted. * Left Hand: Able to make a fist. No swelling or tenderness to palpation of these joints. No deformities noted. Wrists * Right Wrist: Full ROM. 70 degrees of wrist flexion, 80 degrees of wrist extension. No swelling or TTP * Left Wrist: Full ROM. 70 degrees of wrist flexion, 80 degrees of wrist extension. No swelling or TTP Elbows * Right Elbow: Full ROM. No swelling or TTP. No TTP of the medial and lateral epicondyles * Left Elbow: Full ROM. No swelling or TTP. No TTP of the medial and lateral epicondyles Shoulders * Right shoulder: Decreased ROM. TTP of the subacromial bursa * Left shoulder: No swelling noted. Minimal TTP of the subacromial bursa Knees * Right knee: Full ROM. No swelling noted. No TTP of the knee joint lie or pes anserine bursa * Left knee: Full ROM. No swelling noted. No TTP of the knee joint lie or pes anserine bursa. Ankles * Right ankle: Good ankle dorsiflexion and plantar flexion. No swelling. No TTP of the ankle joint * Left ankle: Good ankle dorsiflexion and plantar flexion. No swelling. No TTP of the ankle joint Feet * Right foot: Negative squeeze test * Left foot: Negative squeeze test Tender points? * No tenderness to palpation of the bilateral trapezius, supraspinatus, anterior costochondral junctions, bilateral suboccipital muscle insertions SKIN No rashes Results Reviewed Results Reviewed: XR Bilateral Shoulders 01/2025 FINDINGS (Right): There is mild acromioclavicular arthrosis with distal clavicular osteolysis. Glenohumeral joint is well preserved. No fracture. Alignment is anatomic. Soft tissues are normal with no abnormal calcifications. IMPRESSION: Mild acromioclavicular arthrosis with distal clavicular osteolysis. FINDINGS (Left): The bones and soft tissues are normal. No fracture. Glenohumeral and acromioclavicular alignment is anatomic with normal joint space. No abnormal soft tissue calcifications. IMPRESSION: Normal left shoulder. MRI R Shoulder 01/2025 Findings: No acute fractures. No pathologic bone lesions. There are arthritic/degenerative changes in the acromioclavicular joint. Type II acromion without downsloping. No joint effusion. No rotator cuff tears. The long head of biceps is intact. Glenoid labrum is intact. IMPRESSION: 1. AC joint degenerative/arthritic changes. Assessment & Plan Assessment & Plan (1) Fibromyalgia: Comment: Previous serology in 2017 with normal inflammatory markers, normal complements, negative rheumatoid factor, negative CCP, negative BRINDA, negative double-stranded DNA. Cardiolipin antibodies negative. BASILIA positive 1:80. Code(s): M79.7 - Fibromyalgia Category: Medical Plan: #Fibromylagia Patient is a 49 y.o. female with fibromyalgia here today for follow up. Main complaint today is left shoulder pain. XR left shoulder normal but patient still experiencing instability. We will check an MRI to rule out tear FM pain well managed with gabapentin and tizanidine Plan - Gabapentin 300mg tid - Tizanidine 4mg nightly - MR Left shoulder - RTC 6 months - Labs before visit: CBC, CMP, ESR, CRP Plan I spent 30 minutes reviewing the record and labs, taking a history, examining the patient, discussing the treatment plan, ordering diagnostic work up and documenting in the medical record Orders: Orders MR shoulder LT wo con 02/21/25 M75.42 - Impingement syndrome of left shoulder Coding Level of Care Code Est Pt Level 4 (85124) Diagnoses Fibromyalgia M79.7
--- OUTSIDE RECORDS SUMMARY | 2025-02-21 15:46 | XMS_ITS | Clinical Summary ---
Author Organization [facility] Address [address] [place] [address] Phone Care Team Providers Care Animal Care Giver Name Role Phone Idania De La Torre MD Primary Care Provider [phone] Allergies Active Allergy Reactions Criticality Noted Date Comments Cortisone Medium 08/15/2016 Other Reaction(s): OTHER Patient developed blurred vision after the injection and also it induced her menses Sumatriptan Succinate 08/28/2010 Tightning in chest Eletriptan 08/28/2010 Tightning in chest Oxcarbazepine 08/28/2010 Itching/Pruritus Venlafaxine 11/25/2015 Tight throat Medications ubrogepant (UBRELVY) 100 mg tablet Take by [...] DAILY NEEDED FOR DIARRHEA. 03/08/20 24 Active medroxyPROGESTER one (PROVERA) 2.5 mg tablet [...] VOMITING 90 tablet 1 01/10/20 25 Active Emgality Pen 120 mg/mL injection pen INJECT 1 SUBCUTANEOUS EVERY MONTH 30 DAYS 01/19/20 25 Active levocetirizine (XYZAL) 5 mg tablet Take 1 tablet (5 mg total) by mouth 1 (one) time each day. 12/19/19 25 Active tiZANidine (ZANAFLEX) 4 mg tablet 01/26/20 25 Active MAGNESIUM GLYCINATE ORAL Take 400 mg by mouth at bedtime. Active multivitamin with minerals tablet Take 1 tablet by mouth 1 (one) time each day. Active multivit-mineral s/folic acid (ADULT MULTIVITAMIN GUMMIES ORAL) Take by mouth. 025 Discontin ued(Thera py completed ) magnesium oxide 200 mg magnesium tablet,chewable Take 200 mg by mouth daily. 025 Discontin ued(Thera py completed ) Hospital, Clinic, or Other Facility Administered Medication Ordered Dose Route Frequency Start Date End Date Status lidocaine (PF) (XYLOCAINE-MPF) 1 % injection 0.5 mLIndications:Planta r fascial fibromatosis .5 mL inj Once PRN Procedure 02/01/2025 02/01/2025 Ended ketorolac (TORADOL) injection 30 mgIndications:Planta r fascial fibromatosis 30 mg Once PRN Procedure 02/01/2025 02/01/2025 Ended Active Problems Problem Noted Date Diagnosed Date Anxiety 06/08/2024 Bipolar depression (CMS/HCC V24, CMS/HCC V28) Esophageal reflux 06/08/2024 Fibromyalgia 06/08/2024 Migraine 06/08/2024 Ganglion cyst of left foot 08/19/2022 Hyperlipidemia 09/25/2021 Overview (06/08/2024): 09/27 - ASCVD score .5% Neck pain 10/31/2020 Chronic insomnia 11/01/2017 Overview (06/08/2024): 10/2017 Diagnostic Sleep Study did not reveal sleep apnea. Erythromelalgia (CMS/HCC V24) 09/13/2017 Chest pain 05/27/2014 Overview (06/08/2024): [...] Papanicolaou smear of cervix and cervical HPV [facility] IMO Update Fall 2015 Encounters Date Type Department Care Team Description 02/13/2025 Telephone Orthopedic Surgery [place] [id number] [phone] Ignacio Alonzo DPM 02/01/2025 8:45 AM EDT Office Visit Orthopedic Surgery [place] [address] [phone] Ignacio Alonzo DPM Arthritis of left ankle (Primary Dx); Plantar fascial fibromatosis; Tendinitis of right ankle 01/31/2025 11:30 AM EDT Office Visit Adult Medicine [address] [phone] Galina Bal PA Family history of diabetes mellitus (Primary Dx); Anxiety 01/30/2025 Telephone Adult Medicine [address] [phone] Idania De La Torre MD Hyperglycemia 01/24/2025 8:49 AM EDT - 01/24/2025 11:59 PM EDT Hospital Encounter Radiology Department - [place] [id number] [place] [address] Encounter for screening mammogram for breast cancer Discharge Disposition: Home or Self Care 12/21/2024 9:45 AM EDT Office Visit Orthopedic Surgery - [place] [address] [facility] [address] [place] [phone] Ignacio Alonzo, DPM Arthritis of left ankle (Primary Dx); Follow-up exam; Neuritis 11/21/2024 4:52 PM EDT - 11/21/2024 11:59 PM EDT Hospital Encounter [facility] MRI [address] [place] [phone] Arthritis of left ankle Discharge Disposition: Home or Self Care from Last 3 Months Immunizations Name Administration Dates Next Due Influenza Quadravalent, MDCK , 0.5ml, preservative free (Flucelvax) 6mo and older 08/19/2022,06/21/2020 Influenza Quadravalent, MDCK , 0.5ml, with preservative (Flucelvax) 6mo and older 06/28/2018 Influenza trivalent, with preservative (Fluzone; Afluria) 6mo and older 09/22/2019,06/09/2016,08/20/2014,2012,08/28/2010 Influenza, Unspecified 07/02/2021,09/22/2019, [employer] SARS-CoV-2 COVID-19, mRNA, LNP-S, preservative free 06/18/2021,05/28/2021 Tdap Tetanus diptheria acell ular pertussis (Boostrix; Adacel) 7yo and older 10/20/2015,07/21/2013 Surgical History Surgery Date Site/Laterality Comments BUNIONECTOMY 2001 PROCEDURE: [place] CORRJ HLX VLGS BNCTY SESMDC W/DOUBLE OSTEOTOMY; COMMENT: right FLEXIBLE SIGMOIDOSCOPY 05/26/2011 PROCEDURE: HISTORICAL FLEXIBLE SIGMOIDOSCOPY; COMMENT: ext hemorrhoidal tags x 2 OTHER SURGICAL HISTORY 07/18/2013 PROCEDURE: NUCLEAR EXAM OF STOMACH EMPTYING; COMMENT: [facility] - delayed liquid and solid material gastric emptying suggesting gastroparesis. COLONOSCOPY 01/28/2016 PROCEDURE: HISTORICAL COLONOSCOPY; COMMENT: normal UPPER GASTROINTESTINAL ENDOSCOPY 08/25/2013 PROCEDURE: [place] UPPER GI ENDOSCOPY PERFORMED; COMMENT: normal on omeprazole treatment. UPPER GASTROINTESTINAL ENDOSCOPY 11/11/2005 PROCEDURE: [place] UPPER GI ENDOSCOPY PERFORMED; COMMENT: Dr Horner - normal OTHER SURGICAL HISTORY PROCEDURE: [place] HEMORRHOID NTRNL & XTRNL 1 COLUMN W/FISSURECTO; COMMENT: [facility] - Dr. Petty COLONOSCOPY 09/25/2021 PROCEDURE: HISTORICAL COLONOSCOPY; COMMENT: normal ESOPHAGOGASTRODUODENOSCOPY 01/08/2022 PROCEDURE: [place] EGD TRANSORAL BIOPSY SINGLE/MULTIPLE; COMMENT: EGD normal including biopsy TUBAL LIGATION 11/24/2018 PROCEDURE: HISTORICAL TUBAL LIGATION BUNIONECTOMY 2001 Right PROCEDURE: BUNION SURGERY, SIMPLE REMOVAL ANKLE SURGERY 06/2023 Left PROCEDURE: HISTORICAL ANKLE SURGERY; COMMENT: ligament repair Medical History Medical History Date Comments Historical Medical DX 12/11/2009 DX:Abnorma l Pap smear and cervical HPV (human papillomavirus); COMMENT: [facility] Anxiety DX:Anxiety; COMM ENT: followed by psychiatrist/ therapist in [place] Esophageal reflux DX:Esophageal reflux Bipolar depression ([facility] V24, [facility]/HCC V28) DX:Bipolar depression ([facility]); COMMENT: per patient, no records from psychiatrist Migraine DX:Migraine Fibromyalgia DX:Fibromyalgia; COMMENT: Employment [employer]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 Morel at [place] Fracture of wrist 1982 DX:Fracture of wrist; COMMENT: left Tinnitus, right 05/25/2011 DX:Tinnitus, rig ht Gastroparesis 07/18/2013 DX:Gastroparesis ; COMMENT: Gastric emptying study completed at [facility], followed by GI at [place] History of Papanicolaou smea r of cervix DX:History of Papanicolaou s mear of cervix; COMMENT: folowed by [facility] BUS ATTENDANT, Bhavana Paulino Chronic headaches DX:Chronic hea daches; COMMENT: Followed by Dr. 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 For example, early childhood worker or elderly care for an older adult? [...] Sign Reading Time Taken Comments Blood Pressure 92/62 01/31/2025 11:18 AM EDT Pulse 78 01/31/2025 11:18 AM EDT Temperature 36.4 C (97.6 F) 01/31/2025 11:18 AM EDT Respiratory Rate 12 01/31/2025 11:18 AM EDT Oxygen Saturation - - Inhaled Oxygen Concentration - - Weight 72.1 kg (159 lb) 02/01/2025 8:45 AM EDT Height 151.1 cm (4' 11.49 ) 02/01/2025 8:45 AM E DT Body Mass Index 31.59 02/01/2025 8:45 AM EDT Plan of Treatment Upcoming Encounters Date Type Department Care Team (Late st Contact Info) Description 02/23/2025 11:00 AM EDT Office Visit Adult Medicine [facility] [address] [place] [phone] Idania De La Torre MD [address] [place] [address] 03/12/2025 2:45 PM EDT Office Visit Orthopedic Surgery - [place] [address] [phone] Ignacio Alonzo, DPM [address] [phone] Health Maintenance Due Date Last Done Comments Hepatitis B Vaccines (1 of 3 - 19+ 3-dose series) 1994 Medicare Annual Wellness Visit 08/15/2022 COVID-19 Vaccine ( - 2023- season) 2024 06/18/2021, 05/28/2021 Influenza Vaccine (Season Ended) 2025 08/19/2022, 07/02/2021, 06/13/2021, Additional history exists Depression Screening 07/13/2025 07/13/2024 Social Influencers of Health Screening 07/13/2025 07/13/2024 DTaP,Tdap,and Td Vaccines (3 - Td or Tdap) 10/20/2025 10/20/2015, 07/21/2013 Breast Cancer Screening 01/24/2027 01/25/20, 07/20/2024, 01/18/2024, Additional history exists Cervical Cancer [...] Procedure Name Priority Date/Time Associated Diagnosis Comments INJECTION TENDON OR LIGAMENT Routine 02/01/2025 8:45 AM EDT Plantar fascial fibromatosis HEMOGLOBIN A1C Routine 01/31/2025 12:09 PM EDT Family history of diabetes mellitus MG MAMMO DIGITAL SCREENING W EDWIGE BILAT Routine 01/24/2025 9:24 AM EDT Encounter for screening mammogram for breast cancer EXTERNAL MRI REPORT 01/24/2025 EXTERNAL MRI REPORT 01/24/2025 XR ANKLE 3+ VIEWS LEFT Routine 12/21/2024 9:37 AM EDT Follow-up exam MR ANKLE WO CONTRAST LEFT Routine 11/21/2024 5:35 PM EDT Arthritis of left ankle LIPID PANEL Routine 03/01/2024 HM HPV Routine 04/06/2023 COLONOSCOPY Routine 09/25/2021 HEPATITIS C SCREENING Routine 09/15/2013 HIV SCREENING Routine 09/15/2013 from Last 3 Months or Most Recently Relevant to Health Maintenance Results * Injection tendon or ligament (02/01/2025 8:45 AM EDT) Narrative Ignacio Alonzo DPM - 02/01/2025 8:45 AM EDT Ignacio Alonzo DPM 02/01/2025 12:54 PM Injection tendon or ligament Indications: pain Details: 25 G needle Medications: 0.5 mL lidocaine (PF) 1 %; 30 mg ketorolac 30 mg/mL Informed Consent: Site: Foot ligament tendon Ignacio lAonzo DPM IN CLINIC/BEDSIDE ORDERAB LES Final Result * Hemoglobin A1c (01/31/2025 12:09 PM EDT) Hemoglobin A1C 4.6 <6.5 % LAB CHEMISTRY METHOD 01/31/2025 3:[address] [facility] Mean Bld Glu Estim. 85 mg/dL LAB CHEMISTRY METHOD 01/31/2025 3:[address] [facility] Blood Venous blood specimen / Unknown Venipuncture / Unknown 01/31/2025 12:09 PM EDT 01/31/2025 12:09 PM EDT Galina GUERRERO LAB BLOOD ORDERABLES Final Res ult [facility] [address] [place] [address], [place] [phone] * MG Mammo Digital Screening w Edwige bilat (01/24/2025 9:24 AM EDT) Anatomical Region [...] is recommended in 1 year. Mammo Location: [facility], [address] [place] [address], [address], . -------- FINAL REPORT -------- Dictated By: Ananth Miramontes Dictated Date: 01/24/2025 11:29 ET Assigned Physician: Ananth Miramontes Reviewed and Electronically Signed By: Ananth Miramontes Signed Date: 01/24/2025 11:37 ET Workstation ID: [id number] Transcribed By: Self Edit Transcribed Date: 01/24/2025 11:29 ET Narrative 01/24/2025 11:37 AM EDT STUDY: Bilateral screening mammography with tomosynthesis and CAD TECHNIQUE: Bilateral full-field digital screening mammography is obtained and read in conjunction with computer-aided detection. Tomosynthesis as well as 2-D C view imaging [...] is recommended in 1 year. Mammo Location: [facility], [address] [place] [address], [address], . -------- FINAL REPORT -------- Dictated By: Ananth Miramontes Dictated Date: 01/24/2025 11:29 ET Assigned Physician: Ananth Miramontes Reviewed and Electronically Signed By: Ananth Miramontes Signed Date: 01/24/2025 11:37 ET Workstation ID: [id number] Transcribed By: Self Edit Transcribed Date: 01/24/2025 11:29 ET Idania De La Torre MD IMG BI PROCEDURES Final Result * External MRI Report (01/24/2025) Only the most recent of2 resultswithin the time period is included. Anatomical Region Laterality Modality Magnetic Resonan ce Provider [facility] IMG MRI PROCEDURES Final Result * XR Ankle 3+ Views Left (12/21/2024 9:37 AM EDT) Anatomical Region Laterality Modality Lower Extremities, Ankle Left Compute d Radiography Narrative 12/29/2024 11:43 AM EDT Left ankle 3 views No fracture no foreign body Appropriate alignment of the ankle joint noted with no signs of arthritic changes Ignacio Alonzo DPM IMG XR PROCEDURES Final R esult * MR Ankle wo Contrast Left (11/21/2024 5:35 PM EDT) Anatomical Region Laterality Modality Lower Extremities, Ankle Left Magneti c Resonance 11/22/2024 8:46 AM EDT Impressions 11/22/2024 9:06 AM EDT Bone anchor is related to prior anterior tibiotalar and talofibular ligament repair. Evidence of old injury at the intact medial and lateral ankle ligaments. Thickening and high signal throughout the ligamentous structures in the sinus tarsus with edema throughout the sinus tarsus. 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 Mild posterior subtalar cartilage loss. -------- FINAL REPORT -------- Dictated By: ANCELMO HATFIELD Dictated Date: 11/22/2024 08:46 ET Assigned Physician: ANCELMO HATFIELD Reviewed and Electronically Signed By: ANCELMO HATFIELD Signed Date: 11/22/2024 09:06 ET Workstation ID: [id number] Transcribed By: Self Edit Transcribed Date: 11/22/2024 08:46 ET Narrative 11/22/2024 9:06 AM EDT PROCEDURE: Left ankle MRI INDICATION: Pain TECHNIQUE: Multiplanar, multisequence MRI of the left ankle Without contrast. COMPARISON: No priors available. FINDINGS: Bone anchor seen in the distal fibula related to prior anterior tibiofibular ligament repair. Tibiofibular ligaments are intact. Bone anchor within the lateral talus related to prior anterior talofibular ligament repair. Talofibular and calcaneofibular ligaments are intact. Thickening and high signal of the deltoid ligament and spring ligament indicative of old injury. No medial ligament tear. Lisfranc ligament complex is intact. No fracture or suspicious marrow replacing lesion. Surface irregularity of the articular cartilage seen at the posterior subtalar joint. Tibiotalar articular cartilage is relatively preserved. No joint effusion. Plantar fascia and Achilles tendon are within normal limits. Posterior tibial tendinosis without tear. Flexor tendons are intact. Peroneal tendons are intact. Anterior tibial and extensor tendons are intact. There is thickening and high signal of the ligamentous structures of the sinus tarsus with diffuse edema throughout the sinus tarsus. Tarsal tunnel is within normal limits. Muscle bulk is preserved. No fluid collection or mass. Procedure Note Ancelmo [...] Signed Date: 11/22/2024 09:06 ET Workstation ID: [id number] Transcribed By: Self Edit Transcribed Date: 11/22/2024 08:46 ET Ignacio Alonzo DPM IMG MRI PROCEDURES Final Result * (ABNORMAL) Lipid panel (03/01/2024) LDL/HDL Ratio 4 0 - 4 Triglycerides 64 0 - 150 mg/dL Cholesterol 204(A) 0 - 200 mg/dL HDL 57 >=40 mg/dL LDL Cholesterol 135(A) 0 - 100 mg/dL Blood Venous blood specimen / Unknown Historical Provider LAB BLOOD ORDERABLES Tatiana l Result * Cervical Cancer Screening: HPV (04/06/2023) Pathologist [facility] Cervical Cancer Screening: HPV no interpreta tion,abstr acted Historical Provider HEALTH MAINTENANCE Final Result * Colonoscopy (09/25/2021) Pathologist [facility] Colonoscopy no interpreta tion,abstr acted Anatomical Region Laterality Modality Other Historical Provider HEALTH MAINTENANCE Final Result * HIV Screening (09/15/2013) Pathologist [facility] HIV Screening abstracted Historical Provider HEALTH MAINTENANCE Final Result * Hepatitis C Screening (09/15/2013) Pathologist [facility] Hepatitis C Screening abstracted Historical Provider HEALTH MAINTENANCE Final Result from Last 3 Months or Most Recently Relevant to Health Maintenance Insurance [facility] Member Subscriber Plan / Payer (Ef fective 2022-Present) Name:ARSENIO SO Relation to Subscriber:Self Name:Arsenio So Payer ID:[id number] Group ID:[id number] Type:Not on file Address: [address] [facility] [place] [address] Care Teams Animal Care Giver Relationship Specialty Start Date End Date Idania De La Torre MD [address] [place] [place] [id number] PCP - General Internal Medicine 07/13/24
== END 2025-02-21 15:05 | disposition home or self-care (01) ==
LOC: HO.RHE 13:43
PROVIDERS: PCP Internal Medicine; Visit Provider Student in an Organized Health Care Education/Training Program
DX: M79.7 Fibromyalgia (principal)
CPT/HCPCS: 99214

== ENCOUNTER → 2025-02-21 13:43 | Outpatient (BNVA) | payer OTHER, SELFPAY | PROVIDERS: PCP Internal Medicine; Visit Provider Student in an Organized Health Care Education/Training Program | DX: M75.42 Impingement syndrome of left shoulder (principal); M79.7 Fibromyalgia | CPT/HCPCS: 99212 ==

== ENCOUNTER 2025-02-27 10:35 | Outpatient (AMB) | payer OTHER, SELFPAY ==
--- NOTE | 2025-02-27 10:36 | MHC.OFFVIS ---
Intake Visit Reasons: Toradol injection Intake Note: Patient presents for Toradol injection. No vital need to be taking per Doctor Pa. Allergies oxcarbazepine (Trileptal) Allergy (Intermediate, Verified 02/27/25 10:43) hives sumatriptan (Imitrex) Allergy (Intermediate, Verified 02/27/25 10:43) increased heart rate venlafaxine Allergy (Intermediate, Verified 02/27/25 10:43) increased heart rate Cortisone Allergy (Intermediate, Uncoded 02/21/25 13:53) visual disturbance Relpax Allergy (Intermediate, Uncoded 02/21/25 13:53) throat swelling Medication List - Last Reconciled 02/27/25 by Leatha Pa MD albuterol sulfate 90 mcg/actuation 2 puffs inhalation Q4H PRN ascorbic acid (vitamin C) 500 mg PO DAILY bupropion HCl XL (Wellbutrin XL) 300 mg PO QAM bupropion HCl XL 150 mg PO QAM cetirizine 10 mg PO DAILY cholecalciferol (vitamin D3) 50 mcg PO DAILY diazepam 5 mg PO BID PRN diclofenac sodium 50 mg PO BID diclofenac sodium 1% topical dicyclomine 10 mg PO BID docusate sodium 100 mg PO BID estradiol 1 patch transdermal 2XW famotidine (Pepcid) 20 mg PO BEDTIME PRN fluticasone propionate 50 mcg/actuation 2 sprays intranasal DAILY PRN gabapentin 300 mg PO TID galcanezumab-gnlm (Emgality Pen) mg subcut levothyroxine 50 mcg PO DAILY magnesium 200 mg PO DAILY medroxyprogesterone 2.5 mg PO DAILY metoclopramide HCl (Reglan) 10 mg PO Q6H PRN ondansetron HCl 4 mg PO Q8H PRN pantoprazole 20 mg PO BID plecanatide (Trulance) 3 mg PO DAILY terbinafine HCl 250 mg PO DAILY tizanidine 4 mg PO BEDTIME PRN ubrogepant (Ubrelvy) mg PO HPI Comments Details: Patient is a 49 y.o. female with bipolar disorder/depression, anxiety, migraines, GERD, HLD, and fibromyalgia here today for injection of left subacromial bursa Interval History: Patient last seen 02/21/25 with me. At that time playing of left shoulder pain. Offfered a steroid injection however patient is allergic to steroids and so Toradol injection was ordered as she is here today for the injection Rheumatologic History: Fibromyalgia Left ankle s/p tendon repair Current Rheumatology Medication(s): Gabapentin 300 tid Tizanidine 4mg bedtime prn PFSH Medical History History of abnormal cervical Pap smear Anal fissure and fistula Fibromyalgia Surgical History Hx of tubal ligation H/O foot surgery Family History Father HTN (hypertension) Hypothyroid Diabetes Hyperlipidemia Mother HTN (hypertension) Diabetes Hyperlipidemia Social History Household Members: Children Housing: House Alcohol intake: never Patient Tobacco Use Status: Never used Tobacco Current occupational status: disabled Review of Systems Const Details: See HPI Physical Exam Vital Signs: Procedure only visit No vitals taken TTP of the left subacromial bursa Office Procedures AMB Joint Injection/Aspiration Joint Injection/Aspiration Details: Procedure was explained to the patient and informed consent was obtained. ? Risks associated with the procedure were discussed with the patient including but not limited to bleeding, infection, drug reactions and reactions to the topical anesthetic. Patient made aware of signs to look out for infectious complications. The area of interest was identified and confirmed with patient. ?This was subsequently cleaned with chlorhexidine x3. ? The area was then anesthetized using ethyl chloride spray. 40 mg Kenalog with 1 cc 1% lidocaine was injected without issue. ?Minimal to no bleeding. ?Patient tolerated procedure. Primary Site: left shoulder Prep: site was prepped using aseptic technique and ethochloride spray was applied Injected: other (30mg of Ketorolac was administered to the left subacromial bursa) Procedure: The patient tolerated the procedure well Coding 15338 - Glenohumeral/Tronchanteric Bursa/Intraarticular Procedure code (CPT) selection complete Assessment & Plan Assessment & Plan (1) Subacromial bursitis of left shoulder joint: Code(s): M75.52 - Bursitis of left shoulder Plan: #Left subacromial bursitis Patient is a 49 y.o. female with fibromylagia here today for toradol injection of the left subacromial bursa. Procedure went well with no issues Patient to follow up in 6 months for FM. Plan Procedure only Orders: Orders AMB Joint Injection/Aspiration Today M75.52 - Bursitis of left shoulder Coding Level of Care Code Procedure Only Diagnoses Subacromial bursitis of left shoulder joint M75.52 CPT Codes Coding - Joint 7: 43000 - Glenohumeral/Tronchanteric Bursa/Intraarticular ([id number])
== END 2025-02-27 10:49 | disposition home or self-care (01) ==
LOC: HO.RHE 10:35
PROVIDERS: PCP Internal Medicine; Visit Provider Student in an Organized Health Care Education/Training Program
DX: M75.52 Bursitis of left shoulder (principal)
CPT/HCPCS: 20610

== ENCOUNTER → 2025-02-27 10:35 | Outpatient (BNVA) | payer OTHER, SELFPAY | PROVIDERS: PCP Internal Medicine; Visit Provider Student in an Organized Health Care Education/Training Program | DX: M75.52 Bursitis of left shoulder (principal) | CPT/HCPCS: 20610; J2003; J3301 ==

== ENCOUNTER 2025-03-16 08:53 | Outpatient (AMB) | payer OTHER, SELFPAY ==
--- OUTSIDE RECORDS SUMMARY | 2025-03-06 09:45 | XMS_ITS | Encounter Summary ---
Author Organization [facility] Address [address] [place] [address] Care Team Providers Care Circus Supervisor Name Role Phone Idania De La Torre MD Primary Care Provider [phone] Reason for Visit * Reason Comments UTI Started 6pm last nig ht, burning, pain,pressureHad uti recently finished meds on 02/27 Encounter Details Date Type Department Care Team (Late st Contact Info) Description 03/06/2025 9:45 AM EDT Office Visit Adult Medicine [address] [phone] Galina Bal PA [address] [place] [phone] Acute cystitis with hematuria (Primary Dx) Social History Tobacco Use Types Packs/Day Years Used Date Smoking Tobacco: Never Passive Smoke Exposure: Never Smokeless Tobacco: Never Alcohol Use Standard [...] care for your loved ones. For example, residential child care counselor or elderly care for an older adult? [...] on file documented as of this encounter Last Filed Vital Signs Vital Sign Reading Time Taken Comments Blood Pressure 100/70 03/06/2025 9:42 AM EDT Pulse 76 03/06/2025 9:42 AM EDT Temperature 36.5 C (97.7 F) 03/06/2025 9:42 AM EDT Respiratory Rate 12 03/06/2025 9:42 AM EDT Oxygen Saturation - - Inhaled Oxygen Concentration - - Weight 69 kg (152 lb 3.2 oz) 03/06/2025 9:42 AM EDT Height 151.1 cm (4' 11.5 ) 03/06/2025 9:42 AM ED T Body Mass Index 30.23 03/06/2025 9:42 AM EDT documented in this encounter Ordered Prescriptions Prescription Sig Dispense Quantity Refills Last Filled Start Date End Date amoxicillin-clavul anate (AUGMENTIN) 875-125 mg per tablet Take 1 tablet by mouth 2 (two) times a day for 7 days. 14 each 03/06/2025 03/13/2025 documented in this encounter Progress Notes * CESAR Teresa - 03/06/2025 9:45 AM EDT CHIEF COMPLAINT: UTI (Started 6pm last night, burning, pain,pressure/Had uti recently finished medson 02/27) IDENTIFIER: Leisa Bryant is a 49 y.o. old female. HPI: 49-year-old female presents for evaluation urinary concern. Patient reports she was seen at [facility] and was [place] on 02/17 and diagnosed with UTI for which she received Keflex and Pyridium. States she was contacted from them and advised that the culture came back with staph and she was advised to continue with antibiotics as prescribed. Patient reports she completed 10-day course and symptoms had resolved. Patient reports 2 days ago she had urinated and noted a very slight pink tinge on the paper when she wiped and thought maybe she was getting a menstrual period but denies any outright blood. States that following night she developed urgency to urinate, pain with urination, suprapubic pain with urinating, frequent urination. States last night she took a Pyridium which did seem to help the symptoms. Denies fever, vomiting, inability to urinate. Reports some nausea but states that is normal for her with gastroparesis and denies any worsening. States both the prior UTI and these urinary symptoms occurred after intercourse. States on the first occasion, she did not urinate or shower afterwards however, this time she did and she still developed urinary symptoms. ROS: GENERAL: No malaise, significant weight loss or fever. RESPIRATORY: Denies shortness of breath. CARDIOVASCULAR: Denies chest pain, palpitations. GI/: Reports urge to urinate, frequent urination, dysuria, suprapubic abdominal pain, faint hematuria. Denies inability to urinate, vomiting, worsening nausea. PAST MEDICAL HISTORY: Patient Active Problem List Diagnosis Date Noted Anxiety 06/08/2024 Bipolar depression ([facility] V24, [facility] V28) 06/08/2024 Esophageal reflux 06/08/2024 Fibromyalgia 06/08/2024 Migraine 06/08/2024 Ganglion cyst of left foot 08/19/2022 Hyperlipidemia 09/25/2021 Neck pain 10/31/2020 Chronic insomnia 11/01/2017 Erythromelalgia ([facility] V24) 09/13/2017 Chest pain 05/27/2014 Gastroparesis 08/24/2013 Subclinical hypothyroidism 07/04/2013 Chronic constipation 05/14/2012 Tinnitus, right 05/25/2011 Abnormal Papanicolaou smear of cervix 12/11/2009 Past Surgical History: Procedure Laterality Date ANKLE SURGERY Left 06/2023 PROCEDURE: HISTORICAL ANKLE SURGERY; COMMENT: ligament repair BUNIONECTOMY 2001 PROCEDURE: DC CORRJ HLX VLGS BNCTY SESMDC W/DOUBLE OSTEOTOMY; COMMENT: right BUNIONECTOMY Right 2001 PROCEDURE: BUNION SURGERY, SIMPLE REMOVAL COLONOSCOPY 01/28/2016 PROCEDURE: HISTORICAL COLONOSCOPY; COMMENT: normal COLONOSCOPY 09/25/2021 PROCEDURE: HISTORICAL COLONOSCOPY; COMMENT: normal ESOPHAGOGASTRODUODENOSCOPY 01/08/2022 PROCEDURE: DC EGD TRANSORAL BIOPSY SINGLE/MULTIPLE; COMMENT: EGD normal including biopsy FLEXIBLE SIGMOIDOSCOPY 05/26/2011 PROCEDURE: HISTORICAL FLEXIBLE SIGMOIDOSCOPY; COMMENT: ext hemorrhoidal tags x 2 OTHER SURGICAL HISTORY 07/18/2013 PROCEDURE: NUCLEAR EXAM OF STOMACH EMPTYING; COMMENT: [facility] - delayed liquid and solid material gastric emptying suggesting gastroparesis. OTHER SURGICAL HISTORY PROCEDURE: DC HEMORRHOID NTRNL & XTRNL 1 COLUMN W/FISSURECTO; COMMENT: [facility] - Dr. Petty TUBAL LIGATION 11/24/2018 PROCEDURE: HISTORICAL TUBAL LIGATION UPPER GASTROINTESTINAL ENDOSCOPY 08/25/2013 PROCEDURE: DC UPPER GI ENDOSCOPY PERFORMED; COMMENT: normal on omeprazole treatment. UPPER GASTROINTESTINAL ENDOSCOPY 11/11/2005 PROCEDURE: DC UPPER GI ENDOSCOPY PERFORMED; COMMENT: Dr Horner - normal SOCIAL HISTORY: Social History Tobacco Use Smoking status: Never Passive exposure: Never Smokeless tobacco: Never Substance Use Topics Alcohol use: No FAMILY HISTORY: Family History Problem Relation Name Age of Onset Diabetes Mother Hypertension Mother Hyperlipidemia Mother Arthritis Mother Diabetes Father Hypertension Father Alcohol abuse Father Asthma Father Depression Father Colon polyps Father Arthritis Father Other (Other: Ulcerative Colitis) Father Other (Other: gout) Father Other (Other: Histoplasmosis) Father Asthma Sister Crohn's disease Sister Depression Sister Other (Other: polycyctic ovarian syndrome) Sister Coronary artery disease Maternal Grandmother Arthritis Maternal Grandmother Other (Other: vaginal cancer) Maternal Grandmother Prostate cancer Maternal Grandfather Coronary artery disease Maternal Grandfather Stroke Maternal Grandfather Arthritis Maternal Grandfather Coronary artery disease Paternal Grandmother Arthritis Paternal Grandmother Coronary artery disease Paternal Grandfather Arthritis Paternal Grandfather ADD / ADHD Daughter Asthma Daughter ADD / ADHD Daughter Colon polyps Aunt paternal Suicide Attempts Uncle Thyroid disease Father's side father, grandmother, cousins Family Status Relation Name Status Mother Alive dm, bp Father DM, bp, alcohol. Sister Alive MGM (Not Specified) MGF (Not Specified) PGM (Not Specified) PGF (Not Specified) Daughter Alive Daughter Alive Aunt paternal Alive Uncle Father's alana (Not Specified) Daughter Alive No partnership data on file MEDICATIONS DISCONTINUED/REORDERED: Medications Discontinued During This Encounter Medication Reason cephalexin (KEFLEX) 500 mg capsule Therapy completed ACTIVE MEDICATIONS: Outpatient Medications Marked as Taking for the 03/06/25 encounter (Office Visit) with CESAR Teresa Medication Sig Dispense Refill albuterol HFA (PROAIR HFA ; PROVENTIL HFA ; VENTOLIN HFA) 90 mcg/actuation inhaler Inhale 2 Puffs into the lungs every 4 hours as needed for Cough or Wheezing. buPROPion XL (WELLBUTRIN XL) 150 mg 24 hr tablet 450 mg daily buPROPion XL (WELLBUTRIN XL) 300 mg 24 hr tablet 450 mg. cholecalciferol (VITAMIN D-3) 50 mcg (2,000 unit) tablet Take 1 Tab by mouth daily. diazePAM (VALIUM) 5 mg tablet Take 5 mg by mouth every 8 hours as needed. diclofenac (VOLTAREN) 1 % topical gel APPLY TOPICALLY 2 TIMES DAILY NEEDED FOR PAIN. 60 g 0 diclofenac (VOLTAREN) 50 mg EC tablet TAKE 1 TABLET BY MOUTH TWICE A DAY dicyclomine (BENTYL) 10 mg capsule TAKE 1 CAPSULE BY MOUTH 4 TIMES DAILY (BEFORE MEALS AND NIGHTLY). 360 capsule 1 docusate sodium (COLACE) 100 mg capsule TAKE 1 CAPSULE BY MOUTH TWICE A DAY Emgality Pen 120 mg/mL injection pen INJECT 1 SUBCUTANEOUS EVERY MONTH 30 DAYS estradioL (VIVELLE-DOT) 0.05 mg/24 hr APPLY 1 PATCH TWICE A WEEK BY TRANSDERMAL ROUTE FOR 84 DAYS. famotidine (PEPCID) 20 mg tablet TAKE 1 TABLET BY MOUTH 2 TIMES DAILY NEEDED FOR HEARTBURN. fluticasone propionate (FLONASE) 50 mcg/actuation nasal spray SPRAY 2 SPRAYS BY NASAL ROUTE DAILY gabapentin (NEURONTIN) 300 mg capsule Take 1 Capsule by mouth 3 times daily. levocetirizine (XYZAL) 5 mg tablet Take 1 tablet (5 mg total) by mouth 1 (one) time each day. levothyroxine (SYNTHROID, LEVOTHROID) 50 mcg tablet TAKE 1 TABLET BY MOUTH EVERY DAY 90 tablet 0 loperamide (IMODIUM) 2 mg capsule TAKE 1 CAPSULE BY MOUTH 4 TIMES DAILY NEEDED FOR DIARRHEA. MAGNESIUM GLYCINATE ORAL Take 400 mg by mouth at bedtime. medroxyPROGESTERone (PROVERA) 2.5 mg tablet Take 2.5 mg by mouth daily. metoclopramide (REGLAN) 10 mg tablet TAKE 1 TABLET BY MOUTH 3 TIMES A DAY NEEDED FOR VOMITING 90tablet 1 multivitamin with minerals tablet Take 1 tablet by mouth 1 (one) time each day. ondansetron (ZOFRAN) 4 mg tablet Take 1 Tablet by mouth every 8 hours as needed for Nausea. pantoprazole (PROTONIX) 20 mg EC tablet TAKE 1 TABLET BY MOUTH 2 TIMES DAILY (BEFORE MEALS). TAKE ON EMPTY STOMACH, WAIT 30 MINS AND THEN EAT TO ACTIVATE THE MEDIATION- BEFORE BREAKFAST AND SUPPER phenazopyridine (PYRIDIUM) 100 mg tablet Take 1 tablet (100 mg total) by mouth 3 (three) times a day with meals. plecanatide (TRULANCE) 3 mg tablet Take 1 Tablet by mouth daily. senna (SENOKOT) 8.6 mg tablet TAKE 1 TABLET BY MOUTH EVERY DAY terbinafine (LamISIL) 250 mg tablet Take 1 Tablet by mouth daily for 90 days tiZANidine (ZANAFLEX) 4 mg tablet triamcinolone (KENALOG) 0.1 % ointment Apply topically 2 (two) times a day if needed for irritationor rash. 60 g 1 ubrogepant (UBRELVY) 100 mg tablet Take by mouth daily as needed. ALLERGIES: Allergies Allergen Reactions Cortisone Other Reaction(s): OTHER Patient developed blurred vision after the injection and also it induced her menses Imitrex [Sumatriptan Succinate] Tightning in chest Relpax [Eletriptan] Tightning in chest Trileptal [Oxcarbazepine] Itching/Pruritus Venlafaxine Tight throat PHYSICAL EXAM: Visit Vitals BP 100/70 Pulse 76 Temp 36.5 ??C (97.7 ??F) (Oral) Resp 12 Ht 1.511 m (59.5 ) Wt 69 kg (152 lb 3.2 oz) LMP (LMP Unknown) BMI 30.23 kg/m?? OB Status Postmenopausal Smoking Status Never BSA 1.65 m?? APPEARANCE: Alert and in no acute distress EYES: PERRL, conjunctiva and sclera normal. HEART: RRR LUNG: Pulmonary effort normal ABDOMEN: Abdomen soft, nontender to palpation over the suprapubic area. No CVA tenderness noted. NEURO: Awake, alert and oriented x 3 LABS: Ordered Component Latest Ref Rng 03/06/2025 Color UA POC Dark Yellow (IP) Glucose UA POC Normal, Trace Normal (IP) Bilirubin UA POC Negative Negative (IP) Ketones UA POC Negative Negative (IP) Specific Mobile UA POC 1.001 - 1.035 1.020 (IP) Blood UA POC Negative, Trace Positive ! (IP) PH UA POC 5.0 - 9.0 5.0 (IP) Protein UA POC Negative Negative (IP) Urobilinogen UA POC Negative Negative (IP) Nitrite UA POC Negative Negative (IP) Leukocytes UA POC Negative Positive ! (IP) CLARITY, URINE POC Slightly Cloudy (IP) Legend: ! Abnormal (IP) In Process Lab Results Component Value Date WBC 5.3 02/26/2025 HGB 13.7 02/26/2025 HCT 41.6 02/26/2025 MCV 92.0 02/26/2025 Lab Results Component Value Date NA 140 02/26/2025 K 4.7 02/26/2025 CO2 26 02/26/2025 CL 108 02/26/2025 BUN 13 02/26/2025 ALKPHOS 74 02/26/2025 Lab Results Component Value Date CHOL 212 (H) 02/26/2025 LDL 135 (A) 03/01/2024 HDL 59 02/26/2025 TRIG 65 02/26/2025 IMAGING: none IMPRESSION: 1. Acute cystitis with hematuria PLAN: 49-year-old female with cystitis. Patient did just recently have urinary tract infection treated through a local urgent care with Keflex and patient noted symptoms had resolved but returned within a week noting symptoms returned after intercourse. Patient with another UTI and will start treatment with Augmentin as prescribed, patient advised to take with food to avoid GI upset. Will obtain urine culture and consider any medication adjustment pending the result. Patient is advised, if she continues to get urinary tract infections, would refer to urology for further evaluation management. Patient instructed to return if symptoms worsen or do not improve; patient acknowledges understandsand agrees with plan Medication and lab orders: Orders Placed This Encounter Procedures Culture urine Other orders: None * Tayler Barrera MA - 03/06/2025 9:45 AM EDT Urine dip: Leuks: positive Blood small all else negative. * America Spence RN - 03/06/2025 9:45 AM EDT Call to pt. Left message for pt to call triage documented in this encounter Plan of Treatment Upcoming Encounters Date Type Department Care Team ([facility] st Contact Info) Description 04/17/2025 2:00 PM EDT Office Visit Orthopedic Surgery - [place] [address] [facility] [address] [place] [phone] Ignacio Alonzo, DPM 175 [facility] [address] [place] [address] 05/18/2025 11:00 AM EDT Office Visit Gastroenterology - [place] 175 [facility] 175 [facility] [address] [place] [address] Valerie Barr, [place] 175 [facility] [address] [place] [address] 06/05/2025 10:00 AM EDT Office Visit [address] [phone] Idania De La Torre MD [address] [place] [address] 03/13/2026 9:30 AM EDT Office Visit [address] [phone] Idania De La Torre MD [address] [place] [phone] documented as of this encounter Procedures Procedure Name Priority Date/Time Associated Diagnosis Comments POC URINE AUTO W/O MICRO Routine 03/06/2025 10:09 AM EDT Acute cystitis with hematuria CULTURE URINE Routine 03/06/2025 9:58 AM EDT Acute cystitis with hematuria documented in this encounter Results * (ABNORMAL) POC Urine Auto W/O Micro (03/06/2025 10:09 AM EDT) Leukocytes UA POC Positive(A) Negative Nitrite UA POC Negative Negative Urobilinogen UA POC Negative Negative Protein UA POC Negative Negative PH UA POC 5.0 5.0 - 9.0 Blood UA POC Positive(A) Negative, Trace Specific Mobile UA POC 1.020 1.001 - 1.035 Ketones UA POC Negative Negative Bilirubin UA POC Negative Negative Glucose UA POC Normal Normal, Trace Color UA POC Dark Yellow CLARITY, URINE POC Slightly Cloudy Urine Urine specimen obtained by clean catch procedure / Unknown 03/06/2025 10:09 AM EDT Galina GUERRERO POINT OF CARE TEST ENTER/EDIT ORDERABLES Final Result * (ABNORMAL) Culture urine (03/06/2025 9:58 AM EDT) Culture, Urine >100,000 CFU/mL Escherichia coli ESBL(A) YURIY 03/09/2025 7:40 AM EDT [facility] Comment: THIS ORGANISM IS POSITIVE FOR EXTENDED SPECTRUM BETA-LACTAMASE (ESBL). EXTENDED SPECTRUM BETA-LACTAMASE PRODUCING ORGANISMS DEMONSTRATE DECREASED ACTIVITY WITH PENICILLINS, CEPHALOSPORINS AND AZTREONAM. Edited result: Previously reported as Escherichia coli on 03/08/2025 at 0852 EDT. Urine Urine specimen obtained by clean catch procedure / Unknown Non-blood Collection / Unknown 03/06/2025 9:58 AM EDT 03/06/2025 9:58 AM EDT Narrative Organism Antibiotic Method Susceptibility Escherichia coli ESBL Amoxicillin/Clavulanate YURIY 16 ug/ml: Intermediate Escherichia coli ESBL Ampicillin/Sulbactam YURIY >=32 ug/ml: Resistant Escherichia coli ESBL Piperacillin/Tazobactam YURIY <=4 ug/ml: Susceptible Escherichia coli ESBL Cefazolin (Urine) YURIY >=32 ug/ml: Resistant Escherichia coli ESBL Cefoxitin YURIY <=4 ug/ml: Susceptible Escherichia coli ESBL Ceftazidime YURIY <=0.5 ug/ml: Susceptible Escherichia coli ESBL Ceftriaxone YURIY >=64 ug/ml: Resistant Escherichia coli ESBL Cefepime YURIY 2 ug/ml: Susceptible Escherichia coli ESBL Meropenem YURIY <=0.25 ug/ml: Susceptible Escherichia coli ESBL Amikacin YURIY 2 ug/ml: Susceptible Escherichia coli ESBL Gentamicin YURIY <=1 ug/ml: Susceptible Escherichia coli ESBL Ciprofloxacin YURIY <=0.06 ug/ml: Susceptible Escherichia coli ESBL Levofloxacin YURIY <=0.12 ug/ml: Susceptible Escherichia coli ESBL Nitrofurantoin YURIY <=16 ug/ml: Susceptible Escherichia coli ESBL Trimethoprim/Sulfa methoxazol e YURIY <=20 ug/ml: Susceptible Galina GUERRERO LAB MICROBIOLOGY - GENERAL ORD ERABLES Final Result [facility] [address] [place] [address], documented in this encounter Visit Diagnoses Diagnosis Acute cystitis with hematuria- Primary documented in this encounter Discontinued Medications Medication Sig Discontinue Reason Start Date End Da te cephalexin (KEFLEX) 500 mg capsule Take 1 capsule (500 mg total) by mouth 2 (two) times a day. for 10 days Therapy completed 02/17/2025 03/06/2025 documented as of this encounter Additional Health Concerns Infection Onset Date Last Indicated Resolved Time ESBL 03/06/2025 03/06/2025 Assessment Noted Time PHQ-9 Depression Total Score: 0 02/24/20 25 11:00 AM EDT documented as of this encounter Care Teams Circus Supervisor Relationship Specialty Start Date End Date Idania De La Torre MD [address] [place] [id number] PCP - General Internal Medicine 07/13/24 documented as of this encounter
--- NOTE | 2025-03-16 09:00 | A.OFFVIS_ITS ---
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 Pain today is rated as a 0/10. The patient experiences migraines two to three times weekly, characterized by unilateral facial pain, photophobia, and nausea, occasionally resulting in emesis. Initially, migraines occurred up to 18 times monthly, but Botox treatment significantly reduced their frequency. The patient has trialed multiple medications, including Relpax, Emgality, Ajovy, and Fioricet, with Botox proving most effective. No improvement with Tylenol/ibuprofen. Patient has allergy to triptans. Shoulder pain is tension-related, accompanying migraines, and worsens with heavy lifting. The patient has previously received trigger point injections and physical therapy for shoulder pain. The patient also has gastroparesis, contributing to chronic abdominal discomfort, managed with Reglan and antacids. Additionally, the patient has arthritis, for which she has received injections. - Onset: Migraines occur two to three times weekly, with a history of up to 18 episodes monthly. - Quality: Unilateral facial pain, photophobia, nausea, sometimes leading to vomiting. - Location: Pain primarily affects the face and shoulders. - Exacerbating factors: Stress, heavy lifting, and sudden movements. - Relieving factors: Botox treatment has been effective in reducing migraine frequency. - Neurological: Reports migraines with unilateral facial pain, photophobia, and nausea. - Gastrointestinal: Reports chronic abdominal discomfort due to gastroparesis. - Musculoskeletal: Reports shoulder pain associated with migraines. [facility] Medical History History of abnormal cervical Pap smear Anal fissure and fistula Fibromyalgia Surgical History Hx of tubal ligation H/O foot surgery Family History Father HTN (hypertension) Hypothyroid Diabetes Hyperlipidemia Mother HTN (hypertension) Diabetes Hyperlipidemia Social History Household Members: Children Housing: House Alcohol intake: never Patient Tobacco Use Status: Never used Tobacco Current occupational status: disabled Review of Systems Const Details: - Neurological: Reports migraines with unilateral facial pain, photophobia, and nausea. - Gastrointestinal: Reports chronic abdominal discomfort due to gastroparesis. - Musculoskeletal: Reports shoulder pain associated with migraines. Physical Exam Vital Signs: Last Vital Signs Pulse 71 03/16/25 09:04 Resp 16 03/16/25 09:04 BP 110/68 03/16/25 09:04 Pulse Ox 99 03/16/25 09:04 Oxygen Delivery Method Room Air 03/16/25 09:04 General: awake, alert, oriented. Answers questions appropriately. Fully engaged in examination. Skin: warm, dry, intact HEENT: Normocephalic. Hearing intact. Cardiac: External chest normal in appearance. Respiratory: No cough, audible wheezing or stridor. Abdomen: without gross distension. MS: No obvious swelling or deformities. Tension noted in shoulders, no palpable knots at present. Neurological: Oriented to person, place, time and situation. Thought process intact. No gait abnormalities appreciated. Psychiatric: Appropriate mood and affect. Good judgment and insight. Assessment & Plan Assessment & Plan (1) Myofascial pain: Code(s): M79.18 - Myalgia, other site Category: Medical (2) Fibromyalgia: Comment: Previous serology in 2017 with normal inflammatory markers, normal complements, negative rheumatoid factor, negative CCP, negative BRINDA, negative double-stranded DNA. Cardiolipin antibodies negative. BASILIA positive 1:80. Code(s): M79.7 - Fibromyalgia Category: Medical (3) Migraine: Code(s): G43.909 - Migraine, unspecified, not intractable, without status migrainosus Category: Medical Plan The plan includes submitting a request to the insurance for Botox approval to manage migraines; The patient has trialed multiple medications, including Relpax, Emgality, Ajovy, and Fioricet, with Botox proving most effective. No improvement with Tylenol/ibuprofen. Patient has allergy to triptans. Upon approval, arrangements for administration will be made, and the patient will be informed. The patient should continue current medications and seek further consultation with a neurologist. Patient was informed and verbally consented to the use of an ambient scribe for clinic note documentation during this visit. Patient Instructions: - Continue taking current medications as prescribed. - Await notification regarding Botox approval and follow up as instructed. - Consult with a neurologist for further migraine management. Coding Level of Care Code New Pt Level 4 (41430) Complex EM visit Add On G2211 Diagnoses Myofascial pain M79.18 Fibromyalgia M79.7 Migraine G43.909
[2025-03-16 09:04] VITALS: BP 110/68; PULSE 71; RESP 16; O2SAT 99
== END 2025-03-16 09:34 | disposition home or self-care (01) ==
LOC: HO.PMC 08:53
PROVIDERS: PCP Internal Medicine; Visit Provider Registered Nurse Emergency
DX: M79.18 Myalgia, other site (principal); M79.7 Fibromyalgia; G43.909 Migraine, unspecified, not intractable, without status migrainosus
CPT/HCPCS: 99204; G2211

== ENCOUNTER → 2025-03-16 08:53 | Outpatient (BNVA) | payer OTHER, SELFPAY | PROVIDERS: PCP Internal Medicine; Visit Provider Registered Nurse Emergency | DX: M79.7 Fibromyalgia (principal); G43.909 Migraine, unspecified, not intractable, without status migrainosus | CPT/HCPCS: 99202 ==

== ENCOUNTER 2025-03-26 10:14 | Outpatient (AMB) | payer OTHER, SELFPAY ==
--- NOTE | 2025-03-26 10:26 | MHC.OFFVIS ---
Vital Signs 03/26/25 10:27 Height 4 ft 11 in Intake Visit Reasons: 6 mnts Allergies oxcarbazepine (Trileptal) Allergy (Intermediate, Verified 03/26/25 10:34) hives sumatriptan (Imitrex) Allergy (Intermediate, Verified 03/26/25 10:34) increased heart rate venlafaxine Allergy (Intermediate, Verified 03/26/25 10:34) increased heart rate Cortisone Allergy (Intermediate, Uncoded 03/26/25 10:34) visual disturbance Relpax Allergy (Intermediate, Uncoded 03/26/25 10:34) throat swelling Medication List - Last Reconciled 03/26/25 by Renata Good, LINDSAY albuterol sulfate 90 mcg/actuation 2 puffs inhalation Q4H PRN bupropion HCl XL (Wellbutrin XL) 300 mg PO QAM bupropion HCl XL 150 mg PO QAM cetirizine 10 mg PO DAILY cholecalciferol (vitamin D3) 50 mcg PO DAILY diazepam 5 mg PO BID PRN diclofenac sodium 50 mg PO BID diclofenac sodium 1% topical dicyclomine 10 mg PO BID docusate sodium 100 mg PO BID estradiol 1 patch transdermal 2XW famotidine (Pepcid) 20 mg PO BEDTIME PRN fluticasone propionate 50 mcg/actuation 2 sprays intranasal DAILY PRN gabapentin 300 mg PO TID galcanezumab-gnlm (Emgality Pen) mg subcut levothyroxine 50 mcg PO DAILY magnesium glycinate 100 mg PO TID meloxicam 15 mg PO DAILY ondansetron HCl 4 mg PO Q8H PRN pantoprazole 20 mg PO BID plecanatide (Trulance) 3 mg PO DAILY progesterone micronized 100 mg PO QAM progesterone micronized 100 mg PO QAM terbinafine HCl 250 mg PO DAILY tizanidine 4 mg PO BEDTIME PRN ubrogepant (Ubrelvy) mg PO HPI Comments Details: 49 yo woman with life-long h/o headaches, chronic depression and anxiety, and mild tremor worsened with stress and anxiety. She was taking Emgality which was helping with migraines, but was not helping with neck pain or scalp sensitivity that Botox seemed to also help with. Headaches increased about a week before next dose was due. She was using Ubrelvy as needed, but medication seemed to take longer to start working and she sometimes needed to repeat dose. Migraines were intense pain and could be debilitating, lasting hours up to days. She would have to lay down in dark, quiet room. She would use ice cap on head and heat to neck. Pain was either to left or right side of head with pressure behind eye, throbbing-type pain, with sensitivity to light, sound, and smells, nausea and sometimes vomiting. Bright sunlight could trigger migraines. Migraines were happening about 1-2x/week, with about 8 migraines/month. With the Botox, she was having about 3 migraines when medication began to wear off after about 3 months. She was still having some tremors only to right side, arm and leg, which started earlier this year. It was associated with a weird sensation which she also had to right side of face. Off balance at times, but no falls. [facility], [facility] Medical History (Updated 03/26/25 @ 10:30 by Renata Good CNP) Chronic tension type headache Migraine without aura Somatization disorder History of abnormal cervical Pap smear Anal fissure and fistula Fibromyalgia Surgical History Hx of tubal ligation H/O foot surgery Family History Father HTN (hypertension) Hypothyroid Diabetes Hyperlipidemia Mother HTN (hypertension) Diabetes Hyperlipidemia Social History Household Members: Children Housing: House Alcohol intake: never Patient Tobacco Use Status: Never used Tobacco Current occupational status: disabled Review of Systems Const Denies chills, Denies daytime sleepiness, Denies difficulty sleeping, Denies fatigue, Denies fever(s), Denies frequent falls, Reports headache(s), Denies increased appetite, Denies poor appetite, Denies snoring, Denies weakness, Denies weight gain and Denies weight loss Eyes Denies loss of vision ENT Denies vertigo, Denies dizziness and Reports headache(s) Card Denies chest pain at rest, Denies chest pain with activity, Denies syncope, Denies leg edema and Denies palpitations Resp Denies snoring GI Denies constipation, Denies heartburn, Denies diarrhea and Denies nausea Denies urinary frequency, Denies urinary incontinence and Denies urinary urgency Musc Denies abnormal gait, Denies numbness and Denies tingling Skin/Breast Denies dry skin and Denies rash Neuro Denies abnormal gait, Denies vertigo, Denies dizziness, Denies syncope, Denies frequent falls, Reports headache(s), Denies lack of coordination, Denies loss of vision, Denies memory loss, Denies numbness, Denies restless legs, Denies seizure-like activity, Denies tingling, Denies paresthesias, Denies tremor(s) and Denies weakness Psych Denies anxiety, Denies depression, Denies auditory hallucinations, Denies memory loss, Denies visual hallucinations and Denies suicidal ideation Endo Denies fatigue and Denies palpitations Physical Exam Const Other: General Appearance:? normal, in no acute distress. Skin:? no rashes, no significant birthmarks. Heart:? S1, S2 normal, no murmurs. Lungs:? clear anteriorly and posteriorly. Extremities:? no edema. Psych:? alert, oriented, cognitive function intact, cooperative with exam. Neuro Other: Mental Status:?Normal attention, orientation, memory and affect.? Cranial Nerves:?Pupils are equal, round and reactive to light. External occular muscles are intact. Visual sahu are full. Face is symmetrical. Facial sensations are normal. Tongue is midline. Palate elevates symmetrically. Shoulder shrugging is normal. Hearing to bedside conversation is normal. Motor Examination:?Normal muscle tone, bulk and strength,?Deep tendon reflexes are 2+,?Plantars are flexor.? Sensory Exam:?....? Coordination:?No ataxia,?no titubation.? Gait Exam: Within normal limits. Cerebellar Signs:?[id number] and ajup-fn-[id number] is normal.? Extrapyramidal System:?No tremor, rigidity with normal facial expressions.? Pronator Drift:?Not present.? Involuntary Movements:?Mild right hand postural vs atypical tremor Speech:?Normal.? Results Reviewed Results Reviewed: MRI brain WO at [place] in January 2024: A few punctate WM non specific lesions MRI brain [place] [facility] [place]: A few punctate frontal b/l WM faint hyperintensities, not significant. Mild cerebellar atrophy CT brain WO at [facility] [place] in 2017: Mild cerebellar atrophy Assessment & Plan Assessment & Plan (1) Migraine without aura: Code(s): G43.009 - Migraine without aura, not intractable, without status migrainosus Category: Medical Qualifiers: Intractability: not intractable Status migrainosus presence: without status migrainosus Qualified Code(s): G43.009 - Migraine without aura, not intractable, without status migrainosus Plan: Will try Botox again as she had better relief with this medication in the past. With Botox, migraines were decreased to about 3x within 3 month period, increased when next dose due. Neck pain and scalp sensitivity was also improved. For now, continue Emgality and Ubrelvy as needed. (2) Chronic tension type headache: Code(s): G44.229 - Chronic tension-type headache, not intractable Category: Medical Qualifiers: Intractability: not intractable Qualified Code(s): G44.229 - Chronic tension-type headache, not intractable (3) Tremors of nervous system: Code(s): R25.1 - Tremor, unspecified Category: Medical Plan: MRI brain ordered. Plan Meds tried for migraine control: Amitryptiline, topiramate, propranalol, verapamil, depakoate, triptan, Nurtec, Emgality, Ajovy, Botox Botox helped with neck pain, headaches, and scalp. Emgality: reduced headaches to 8/month, scalp sensitivity was still a problem Ubrelvy as needed helped Orders: Orders AMB Botulinum toxin Injection - Patient Supplied N/C Today G43.009 - Migraine without aura, not intractable, without status migrainosus MR head/brain wo con Today R25.1 - Tremor, unspecified Medications: New onabotulinumtoxinA 200 units intradermal ONCE 1 ea 0RF G43.009 - Migraine without aura, not intractable, without status migrainosus onabotulinumtoxinA (Botox) 200 units intradermal [id number] 1 ea 3RF Coding Level of Care Code Est Pt Level 4 (89766) Diagnoses Migraine without aura and without status migrainosus, not intractable G43.009 Intractability: not intractable Status migrainosus presence: without status migrainosus Chronic tension-type headache, not intractable G44.229 Intractability: not intractable Tremors of nervous system R25.1
--- OUTSIDE RECORDS SUMMARY | 2025-03-26 11:09 | XMS_ITS | Clinical Summary ---
Author Organization [facility] Address [address] [place] [address] Phone Care Team Providers Care Traffic And Transport Planner Name Role Phone Idania De La Torre MD Primary Care Provider [phone] Allergies Active Allergy Reactions Criticality Noted Date [...] hr tablet 450 mg. 01/02/20 21 Active cholecalcifer ol (VITAMIN D-3) 50 mcg (2,000 unit) tablet Take 1 Tab by mouth daily. 10/23/19 20 Active diazePAM (VALIUM) 5 mg tablet Take 5 mg by mouth every 8 hours as needed. Active diclofenac (VOLTAREN) 50 mg EC tablet TAKE 1 TABLET BY MOUTH TWICE A DAY 01/11/20 24 Active docusate sodium (COLACE) 100 mg [...] DAILY NEEDED FOR DIARRHEA. 03/08/20 24 Active medroxyPROGES TERone (PROVERA) 2.5 mg tablet Take 2.5 mg by mouth daily. 03/24/20 Active ondansetron (ZOFRAN) 4 mg tablet Take [...] Take 1 Tablet by mouth daily. Active dicyclomine (BENTYL) 10 mg capsule TAKE 1 CAPSULE BY MOUTH 4 TIMES DAILY (BEFORE MEALS AND NIGHTLY). 360 capsule 1 11/15/19 25 Active levothyroxine (SYNTHROID, LEVOTHROID) 50 mcg tablet TAKE 1 TABLET BY MOUTH EVERY DAY 90 tablet 01/10/20 25 Active Emgality Pen 120 mg/mL injection pen INJECT 1 SUBCUTANEOUS EVERY MONTH 30 DAYS 01/19/20 25 Active levocetirizin e (XYZAL) 5 mg tablet Take 1 tablet (5 mg total) by mouth 1 (one) time each day. 12/19/19 25 Active tiZANidine (ZANAFLEX) 4 mg tablet 01/26/20 25 Active MAGNESIUM GLYCINATE ORAL Take 400 mg by mouth at bedtime. Active multivitamin with minerals tablet Take 1 tablet by mouth 1 (one) time each day. Active phenazopyridi ne (PYRIDIUM) 100 mg tablet Take 1 tablet (100 mg total) by mouth 3 (three) times a day with meals. 02/18/20 25 Active diclofenac (VOLTAREN) 1 % topical gel APPLY TOPICALLY 2 TIMES DAILY NEEDED FOR PAIN. 60 g 02/24/20 25 Active triamcinolone (KENALOG) 0.1 % ointment Apply topically 2 (two) times a day if needed for irritation or rash. 60 g 1 02/24/20 25 025 Active metoclopramid e (REGLAN) 10 mg tablet TAKE 1 TABLET BY MOUTH 3 TIMES A DAY NEEDED FOR VOMITING 90 tablet 1 03/06/20 25 Active meloxicam (MOBIC) 15 mg tablet Take 1 tablet (15 mg total) by mouth 1 (one) time each day. 30 tablet 03/12/20 25 025 Active metoclopramid e (REGLAN) 10 mg tablet TAKE 1 TABLET BY MOUTH 3 TIMES A DAY NEEDED FOR VOMITING 90 tablet 1 01/10/20 25 025 Discontinued cephalexin (KEFLEX) 500 mg capsule Take 1 capsule (500 mg total) by mouth 2 (two) times a day. for 10 days 02/18/20 25 025 Discontinued(T herapy completed) amoxicillin-c lavulanate (AUGMENTIN) 875-125 mg per tablet Take 1 tablet by mouth 2 (two) times a day for 7 days. 14 each 03/06/20 25 025 Active Problems Problem Noted Date Diagnosed Date Anxiety 06/08/2024 Bipolar depression ([facility] V24, CMS/[facility] V28) Esophageal reflux 06/08/2024 Fibromyalgia 06/08/2024 Migraine 06/08/2024 Ganglion cyst of left foot 08/19/2022 Hyperlipidemia 09/25/2021 Overview (06/08/2024): 09/27 - ASCVD score .5% Neck pain 10/31/2020 Chronic insomnia 11/01/2017 Overview (06/08/2024): 10/2017 Diagnostic Sleep Study did not reveal sleep apnea. Erythromelalgia (CMS/[facility] V24) 09/13/2017 Chest pain 05/27/2014 Overview (06/08/2024): [facility] ER visit 05/21/14, 01/13 precordial left-sided chest pain radiating into her face. EKG unremarkable, chest pain reproducible, advised to followup when necessary. Gastroparesis 08/24/2013 Overview (06/08/2024): 07/18/13 Gastric Emptying Study confirms gastroparesis to both solids & liquids Assessment & Plan (02/23/2025 12:08 PM EDT): Orders: Ambulatory referral to Nutrition Services; Future Subclinical hypothyroidism 07/04/2013 Assessment & Plan (02/23/2025 12:08 PM EDT): Chronic constipation 05/14/2012 Tinnitus, right 05/25/2011 Overview (06/08/2024): In right ear - hearing test supposedly wnl As of 2020 - both ears involved though louder on right Abnormal Papanicolaou smear of cervix 12/11/2009 Overview (06/08/2024): Other abnormal Papanicolaou smear of cervix and cervical HPV [facility] IMO Update Fall 2015 Encounters Date Type Department Care Team Description 03/12/2025 2:45 PM EDT Office Visit Orthopedic Surgery - [place] [address] [place] [phone] Ignacio Alonzo, DPM Plantar fascial fibromatosis (Primary Dx); Tendinitis of right ankle 03/06/2025 9:45 AM EDT Office Visit Adult Medicine [address] [phone] Galina Bal PA Acute cystitis with hematuria (Primary Dx) 03/06/2025 Telephone Adult Medicine [address] [phone] Idania De La Torre MD UTI 02/23/2025 11:00 AM EDT Office Visit [address] [phone] Idania De La Torre MD PE (physical exam), annual (Primary Dx); Gastroparesis; Subclinical hypothyroidism; Other fatigue; Myofascial pain; Dyshidrotic eczema 02/13/2025 Telephone Orthopedic Surgery [place] [phone] [phone] Ignacio Alonzo DPM 02/01/2025 8:45 AM EDT Office Visit Orthopedic [place] [address] [phone] Ignacio Alonzo DPM Arthritis of left ankle (Primary Dx); Plantar fascial fibromatosis; Tendinitis of right ankle 01/31/2025 11:30 AM EDT Office Visit Adult [address] [phone] Galina Bal PA Family history of diabetes mellitus (Primary Dx); Anxiety 01/30/2025 Telephone Adult [address] [phone] Idania De La Torre MD Hyperglycemia 01/24/2025 8:49 AM EDT - 01/24/2025 11:59 PM EDT Hospital Encounter Radiology Department - [address] [phone] Encounter for screening mammogram for breast cancer Discharge Disposition: Home or Self Care from [...] Surgery Date Site/Laterality Comments BUNIONECTOMY 2001 PROCEDURE: NC CORRJ HLX VLGS BNCTY SESMDC W/DOUBLE OSTEOTOMY; COMMENT: right FLEXIBLE SIGMOIDOSCOPY 05/26/2011 PROCEDURE: HISTORICAL FLEXIBLE SIGMOIDOSCOPY; COMMENT: ext hemorrhoidal tags x 2 OTHER SURGICAL HISTORY 07/18/2013 PROCEDURE: NUCLEAR EXAM OF STOMACH EMPTYING; COMMENT: [facility] - delayed liquid and solid material gastric emptying suggesting gastroparesis. COLONOSCOPY 01/28/2016 PROCEDURE: HISTORICAL COLONOSCOPY; COMMENT: normal UPPER GASTROINTESTINAL ENDOSCOPY 08/25/2013 PROCEDURE: NC UPPER GI ENDOSCOPY PERFORMED; COMMENT: normal on omeprazole treatment. UPPER GASTROINTESTINAL ENDOSCOPY 11/11/2005 PROCEDURE: NC UPPER GI ENDOSCOPY PERFORMED; COMMENT: Dr Horner - normal OTHER SURGICAL HISTORY PROCEDURE: NC HEMORRHOID NTRNL & XTRNL 1 COLUMN W/FISSURECTO; COMMENT: [facility] - Dr. Petty COLONOSCOPY 09/25/2021 PROCEDURE: HISTORICAL COLONOSCOPY; COMMENT: normal ESOPHAGOGASTRODUODENOSCOPY 01/08/2022 PROCEDURE: NC EGD TRANSORAL BIOPSY SINGLE/MULTIPLE; COMMENT: EGD normal including biopsy TUBAL LIGATION 11/24/2018 PROCEDURE: HISTORICAL TUBAL LIGATION BUNIONECTOMY 2001 Right PROCEDURE: BUNION SURGERY, SIMPLE REMOVAL ANKLE SURGERY 06/2023 Left PROCEDURE: HISTORICAL ANKLE SURGERY; COMMENT: ligament repair Medical History Medical History Date Comments Historical Medical DX 12/11/2009 DX:Abnorma l Pap smear and cervical HPV (human papillomavirus); COMMENT: [facility] Anxiety DX:Anxiety; COMM ENT: followed by psychiatrist/ therapist in [place] Esophageal reflux DX:Esophageal reflux Bipolar depression ([facility] V24, CMS/HCC V28) DX:Bipolar depression ([facility]); COMMENT: per patient, no records from psychiatrist Migraine DX:Migraine Fibromyalgia DX:Fibromyalgia; COMMENT: [employer]ist Dr. Morel at [place] Fracture of wrist 1982 DX:Fracture of wrist; COMMENT: left Tinnitus, right 05/25/2011 DX:Tinnitus, rig ht Gastroparesis 07/18/2013 DX:Gastroparesis ; COMMENT: Gastric emptying study completed at [facility], followed by [place] History of Papanicolaou smea r of cervix DX:History of Papanicolaou s mear of cervix; COMMENT: folowed by [facility] INSURANCE RISK SURVEYOR, Bhavana Paulino Chronic headaches DX:Chronic hea daches; COMMENT: Followed by Dr. 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 Alonzo Fibromyalgia DX:Fibromyalgia Gastroparesis DX:Gastroparesis Cervical [...] for your loved ones. For example, child and family services specialist or elderly care for an older adult? [...] 12 03/06/2025 9:42 AM EDT Oxygen Saturation 98% 02/23/2025 11:12 AM EDT Inhaled Oxygen Concentration - - Weight 69 kg (152 lb 3.2 oz) 03/06/2025 9:42 AM EDT Height 151.1 cm (4' 11.5 ) 03/06/2025 9:42 AM ED T Body Mass Index 30.23 03/06/2025 9:42 AM EDT Plan of Treatment Upcoming Encounters Date Type Department Care Team (Late st Contact Info) Description 04/17/2025 2:00 PM EDT Office Visit Orthopedic Surgery - [place] [address] 175 [facility] [address] [place] [phone] Ignacio Alonzo DPM [address] [address] 05/18/2025 11:00 AM EDT Office Visit Gastroenterology [facility] [address] [place] [phone] Valerie Barr NP 175 [facility] [address] [place] [address] 06/05/2025 10:00 AM EDT Office Visit [facility] Medicine [address] [phone] Idania De La Torre MD [address] [place] [address] 03/13/2026 9:30 AM EDT Office Visit [address] [phone] Idania De La Torre MD [address] [place] [phone] Health Maintenance Due Date Last Done Comments Hepatitis B Vaccines (1 of 3 - 19+ 3-dose series) 1994 Medicare Annual Wellness Visit 08/15/2022 Influenza Vaccine (#1) 2025 , 07/02/2021, 06/21/2020, Additional history exists Social Influencers of Health Screening 07/13/2025 07/13/2024 DTaP,Tdap,and Td Vaccines (3 - Td or Tdap) 10/20/2025 10/20/2015, 07/21/2013 Breast Cancer Screening 01/24/2026 01/25/20, 07/20/2024, 01/18/2024, Additional history exists COVID-19 Vaccine ( season) 2026 06/18/2021, 05/28/2021 Postponed from 05/07/2024 (Patient Refused) Cervical Cancer Screening: HPV 04/06/2028 04/06/2023, 09/15/2021 Cholesterol Screening (Lipid Panel) 02/26/2030 02/26/2025, 03/01/2024, 03/01/2024 Colorectal Cancer Screening: Colonoscopy 09/25/2031 09/25/2021, 09/25/2021 HIV Screening Completed 09/15/2013 Hepatitis C Screening Completed 09/15/2013 Depression Screening Completed 02/23/2025 HIB Vaccines Aged Out No longer eligi [...] 5 Years) and At-Risk Patients (6 to 49 Years) Aged Out No longer eligible based [...] 9:58 AM EDT Acute cystitis with hematuria CBC WITH AUTO DIFFERENTIAL Routine 02/26/2025 9:39 AM EDT Other fatigue COMPREHENSIVE METABOLIC PANEL Routine 02/26/2025 9:39 AM EDT Other fatigue LIPID PANEL WITH REFLEX TO DIRECT LDL Routine 02/26/2025 9:39 AM EDT PE (physical exam), annual CBC AND DIFFERENTIAL Routine 02/26/2025 9:39 AM EDT Other fatigue VITAMIN D 25 HYDROXY Routine 02/26/2025 9:39 AM EDT Other fatigue VITAMIN B12 AND FOLATE Routine 02/26/2025 9:39 AM EDT Other fatigue IRON AND TIBC Routine 02/26/2025 9:39 AM EDT Other fatigue FERRITIN Routine 02/26/2025 9:39 AM EDT Other fatigue THYROID STIMULATING HORMONE WITH REFLEX TO FREE T4 AND FREE T3 Routine 02/26/2025 9:39 AM EDT Other fatigue INJECTION TENDON OR LIGAMENT Routine 02/01/2025 8:45 AM EDT Plantar fascial fibromatosis HEMOGLOBIN A1C Routine 01/31/2025 12:09 PM EDT Family history of diabetes mellitus MG MAMMO DIGITAL SCREENING W OTONIEL BILAT Routine 01/24/2025 9:24 AM EDT Encounter for screening mammogram for breast cancer EXTERNAL MRI REPORT 01/24/2025 EXTERNAL MRI REPORT 01/24/2025 HPV Routine 04/06/2023 COLONOSCOPY Routine 09/25/2021 HEPATITIS C SCREENING Routine 09/15/2013 HIV SCREENING Routine 09/15/2013 from Last 3 Months or Most Recently Relevant to Health Maintenance Results * (ABNORMAL) POC Urine Auto W/O Micro (03/06/2025 10:09 AM EDT) Leukocytes UA POC Positive(A) Negative Nitrite UA POC Negative Negative Urobilinogen UA POC Negative Negative Protein UA POC Negative Negative PH UA POC 5.0 5.0 - 9.0 Blood UA POC Positive(A) Negative, Trace Specific Carlyle UA POC 1.020 1.001 - 1.035 Ketones [...] coli ESBL(A) YURIY 03/09/2025 7:40 AM EDT [facility] ([facility] Comment: THIS ORGANISM IS POSITIVE FOR [...] Trimethoprim/Sulfa methoxazol e YURIY <=20 ug/ml: Susceptible us Galina GUERRERO LAB MICROBIOLOGY - GENERAL ORD ERABLES Final Result [facility] ([facility] [address] [place] [address], * Thyroid stimulating hormone with reflex to free t4 and free t3 (02/26/2025 9:39 AM EDT) Pathologist [facility] TSH 1.35 0.40 - 4.00 mcIU/mL LAB CHEMISTRY METHOD 02/26/2025 9:09 PM EDT [facility] Blood Venous blood specimen / Unknown Venipuncture / Unknown 02/26/2025 9:39 AM EDT 02/26/2025 9:39 AM EDT us Idanai De La Torre MD LAB BLOOD ORDERABLES Final Resul t Performing Organization Address [facility] de Phone Number [facility] [address] [place] [address], [place] [phone] * (ABNORMAL) Vitamin B12 and folate (02/26/2025 9:39 AM EDT) [facility] Vitamin B-12 926(H) 250 - 900 pcg/mL LAB CHEMISTRY METHOD 02/26/2025 10:29 PM EDT [facility] Folate >20.0(H) 2.8 - 17.0 ng/ml LAB CHEMISTRY METHOD 02/26/2025 10:29 PM EDT [facility] Blood Venous blood specimen / Unknown Venipuncture / Unknown 02/26/2025 9:39 AM EDT 02/26/2025 9:39 AM EDT us Idania De La Torre MD LAB BLOOD ORDERABLES Final Resul t Performing Organization Address City/[facility]/ZIP Co de Phone Number [facility] [address] [place] [address], [place] [phone] * (ABNORMAL) Lipid panel with reflex to direct LDL (02/26/2025 9:39 AM EDT) [facility] Cholesterol 212(H) 0 - 200 mg/dL LAB CHEMISTRY METHOD 02/26/2025 8:58 PM EDT [facility] Triglycerides 65 0 - 150 mg/dL LAB CHEMISTRY METHOD 02/26/2025 8:58 PM EDT [facility] HDL 59 >=40 mg/dL LAB CHEMISTRY METHOD 02/26/2025 8:58 PM EDT [facility] LDL Calculated 140(H) 0 - 100 mg/dL LAB CHEMISTRY METHOD 02/26/2025 8:58 PM EDT [facility] VLDL Cholesterol Polo 13 mg/dL LAB CHEMISTRY METHOD 02/26/2025 8:58 PM EDT [facility] Non HDL Chol. (LDL+VLDL) 153(H) <145 mg/dL LAB CHEMISTRY METHOD 02/26/2025 8:58 PM EDT [facility] Chol/HDL Ratio 3.6 0.0 - 4.4 LAB CHEMISTRY METHOD 02/26/2025 8:58 PM EDT [facility] Blood Venous blood specimen / Unknown Venipuncture / Unknown 02/26/2025 9:39 AM EDT 02/26/2025 9:39 AM EDT us Idania De La Torre MD LAB BLOOD ORDERABLES Final Resul t [facility] [address] [place] [address], * CBC auto differential (02/26/2025 9:39 AM EDT) WBC 5.3 4.8 - 10.8 K/mcL LAB HEMETOLOGY METHOD 02/26/2025 12:29 PM EDT [facility] RBC 4.50 3.80 - 4.80 M/mcL LAB HEMETOLOGY METHOD 02/26/2025 12:29 PM EDT [facility] Hemoglobin 13.7 11.5 - 16.0 g/dL LAB HEMETOLOGY METHOD 02/26/2025 12:29 PM EDT [facility] Hematocrit 41.6 35.0 - 47.0 % LAB HEMETOLOGY METHOD 02/26/2025 12:29 PM EDT [facility] MCV 92.0 79.0 - 98.0 FL LAB HEMETOLOGY METHOD 02/26/2025 12:29 PM EDT [facility] MCH 30.3 27.0 - 32.0 pcg LAB HEMETOLOGY METHOD 02/26/2025 12:29 [facility] MCHC 32.9 32.0 - 37.0 g/dL LAB HEMETOLOGY METHOD 02/26/2025 12:29 PM EDT [facility] RDW 11.7 11.0 - 15.0 % LAB HEMETOLOGY METHOD 02/26/2025 12:29 [facility] Platelets 227 130 - 400 K/mcL LAB HEMETOLOGY METHOD 02/26/2025 12:29 PM [facility] MPV 10.6 7.0 - 11.0 FL LAB HEMETOLOGY METHOD 02/26/2025 12:29 [facility] NRBC 0.0 <1.0 % LAB HEMETOLOGY METHOD 02/26/2025 12:29 PM [facility] NRBC Absolute 0.00 <0.10 K/mcL LAB HEMETOLOGY METHOD 02/26/2025 12:29 PM [facility] Neutrophils Relative 55.7 % LAB HEMETOLOGY METHOD 02/26/2025 12:29 PM [facility] Lymphocytes Relative 31.8 % LAB HEMETOLOGY METHOD 02/26/2025 12:29 PM [facility] Monocytes Relative 9.1 % LAB HEMETOLOGY METHOD 02/26/2025 12:29 PM [facility] Eosinophils Relative 2.1 % LAB HEMETOLOGY METHOD 02/26/2025 12:29 PM [facility] Basophils Relative 1.1 % LAB HEMETOLOGY METHOD 02/26/2025 12:29 PM EDT [facility] Immature Granulocytes Relative 0.2 % LAB HEMETOLOGY METHOD 02/26/2025 12:29 PM EDT [facility] Neutrophils Absolute 2.95 1.50 - 7.00 K/mcL LAB HEMETOLOGY METHOD 02/26/2025 12:29 PM EDT [facility] Lymphocytes Absolute 1.68 1.00 - 5.00 K/mcL LAB HEMETOLOGY METHOD 02/26/2025 12:29 PM EDT [facility] Monocytes Absolute 0.48 0.20 - 1.00 K/mcL LAB HEMETOLOGY METHOD 02/26/2025 12:29 PM EDT [facility] Eosinophils Absolute 0.11 0.00 - 0.50 K/mcL LAB HEMETOLOGY METHOD 02/26/2025 12:29 PM EDT [facility] Basophils Absolute 0.06 0.00 - 0.20 K/mcL LAB HEMETOLOGY METHOD 02/26/2025 12:29 PM EDT [facility] Immature Granulocytes Absolute 0.01 0.00 - 0.03 K/mcL LAB HEMETOLOGY METHOD 02/26/2025 12:29 PM EDT [facility] Blood Venous blood specimen / Unknown Venipuncture / Unknown 02/26/2025 9:39 AM EDT 02/26/2025 9:39 AM EDT us Idania De La Torre MD LAB BLOOD ORDERABLES Final Resul t [facility] [address] [place] [address], * Iron and TIBC (02/26/2025 9:39 AM EDT) Iron 110 40 - 150 mcg/dL LAB CHEMISTRY METHOD 02/26/2025 8:58 PM EDT [facility] TIBC 298 250 - 450 mcg/dL LAB CHEMISTRY METHOD 02/26/2025 8:58 PM EDT [facility] Iron Saturation 37 15 - 50 % LAB CHEMISTRY METHOD 02/26/2025 8:58 PM EDT [facility] Blood Venous blood specimen / Unknown Venipuncture / Unknown 02/26/2025 9:39 AM EDT 02/26/2025 9:39 AM EDT us Idania De La Torre MD LAB BLOOD ORDERABLES Final Resul t Performing Organization Address City/[facility]/ZIP Co de Phone Number [facility] [address] [place] [address], [place] [phone] * Vitamin D 25 hydroxy (02/26/2025 9:39 AM EDT) Vit D, 25-Hydroxy 39.4 30.0 - 80.0 ng/mL LAB CHEMISTRY METHOD 02/26/2025 9:09 PM EDT [facility] Blood Venous blood specimen / Unknown Venipuncture / Unknown 02/26/2025 9:39 AM EDT 02/26/2025 9:39 AM EDT us Idania De La Torre MD LAB BLOOD ORDERABLES Final Resul t [facility] [address] [place] [address], [place] [phone] * Ferritin (02/26/2025 9:39 AM EDT) Ferritin 114 8 - 252 ng/mL LAB CHEMISTRY METHOD 02/26/2025 8:58 PM EDT [facility] Blood Venous blood specimen / Unknown Venipuncture / Unknown 02/26/2025 9:39 AM EDT 02/26/2025 9:39 AM EDT us Idania De La Torre MD LAB BLOOD ORDERABLES Final Resul t [facility] [address] [place] [address], * Comprehensive metabolic panel (02/26/2025 9:39 AM EDT) Sodium 140 133 - 145 mmol/L LAB CHEMISTRY METHOD 02/26/2025 8:58 PM EDT [facility] Potassium 4.7 3.5 - 5.5 mmol/L LAB CHEMISTRY METHOD 02/26/2025 8:58 PM [facility] Chloride 108 96 - 110 mmol/L LAB CHEMISTRY METHOD 02/26/2025 8:58 PM [facility] CO2 26 21 - 32 mmol/L LAB CHEMISTRY METHOD 02/26/2025 8:58 PM [facility] Anion Gap 6 3 - 11 LAB CHEMISTRY METHOD 02/26/2025 8:58 PM [facility] Glucose 94 70 - 100 mg/dL LAB CHEMISTRY METHOD 02/26/2025 8:58 PM [facility] BUN 13 5 - 25 mg/dL LAB CHEMISTRY METHOD 02/26/2025 8:58 PM [facility] Creatinine 0.78 0.50 - 1.10 mg/dL LAB CHEMISTRY METHOD 02/26/2025 8:58 PM [facility] eGFR 93 >=60 mL/min/1. 73m2 LAB CHEMISTRY METHOD 02/26/2025 8:58 PM [facility] Comment:Calculation based on the Chronic Kidney Disease Epidemiology Collaboration (CKD-EPI) equation refit without adjustment for race. BUN/Creatinine Ratio 16.7 LAB CHEMISTRY METHOD 02/26/2025 8:58 PM [facility] Calcium 9.0 8.5 - 10.5 mg/dL LAB CHEMISTRY METHOD 02/26/2025 8:58 PM [facility] AST (SGOT) 18 10 - 42 unit/L LAB CHEMISTRY METHOD 02/26/2025 8:58 PM EDT [facility] ALT (SGPT) 25 10 - 60 unit/L LAB CHEMISTRY METHOD 02/26/2025 8:58 PM EDT [facility] Alkaline Phosphatase 74 42 - 121 unit/L LAB CHEMISTRY METHOD 02/26/2025 8:58 PM EDT [facility] Total Protein 7.2 6.0 - 8.0 g/dL LAB CHEMISTRY METHOD 02/26/2025 8:58 PM EDT [facility] Albumin 4.3 3.2 - 5.0 g/dL LAB CHEMISTRY METHOD 02/26/2025 8:58 PM EDT [facility] Total Bilirubin 0.5 0.0 - 1.4 mg/dL LAB CHEMISTRY METHOD 02/26/2025 8:58 PM EDT [facility] Blood Venous blood specimen / Unknown Venipuncture / Unknown 02/26/2025 9:39 AM EDT 02/26/2025 9:39 AM EDT us Idania De La Torre MD LAB BLOOD ORDERABLES Final Resul t [facility] [address] [place] [address], * Injection tendon or ligament (02/01/2025 8:45 AM EDT) Ignacio Arias DPM - 02/01/2025 8:45 AM EDT Ignacio Alonzo DPM 02/01/2025 12:54 PM Injection tendon or ligament Indications: pain Details: 25 G needle Medications: 0.5 mL lidocaine (PF) 1 %; 30 mg ketorolac 30 mg/mL Informed Consent: Site: Foot ligament tendon us Ignacio Alonzo DPM IN CLINIC/BEDSIDE ORDERAB LES Final Result * Hemoglobin A1c (01/31/2025 12:09 PM EDT) Hemoglobin A1C 4.6 <6.5 % LAB CHEMISTRY METHOD 01/31/2025 3:02 PM EDT [facility] Mean Bld Glu Estim. 85 mg/dL LAB CHEMISTRY METHOD 01/31/2025 3:02 PM EDT [facility] Blood Venous blood specimen / Unknown Venipuncture / Unknown 01/31/2025 12:09 PM EDT 01/31/2025 12:09 PM EDT us Galina GUERRERO LAB BLOOD ORDERABLES Final Res ult [facility] [address] [place] [address], [place] [phone] * MG Mammo Digital Screening w Otoniel [...] is recommended in 1 year. Mammo Location: [facility], [address] [place] [address], [id number], . -------- FINAL REPORT -------- Dictated By: Ananth Miramontes Dictated Date: 01/24/2025 11:29 ET Assigned Physician: Ananth Miramontes Reviewed and Electronically Signed By: Ananth Miramontes Signed Date: 01/24/2025 11:37 ET Workstation ID: [id number] Transcribed By: Self Edit Transcribed Date: 01/24/2025 [...] is recommended in 1 year. Mammo Location: [facility], [address] [place] [address], [id number], . -------- FINAL REPORT -------- Dictated By: Ananth Miramontes Dictated Date: 01/24/2025 11:29 ET Assigned Physician: Ananth Miramontes Reviewed and Electronically Signed By: Ananth Miramontes Signed Date: 01/24/2025 11:37 ET Workstation ID: [id number] Transcribed By: Self Edit Transcribed Date: 01/24/2025 11:29 ET Idania De La Torre MD IMG BI PROCEDURES Final Result * External MRI Report (01/24/2025) Only the most recent of2 resultswithin the time period is included. Anatomical Region Laterality Modality Magnetic Resonan ce Provider Fani Onbase IMG MRI PROCEDURES Final Result * Cervical Cancer Screening: HPV (04/06/2023) [facility] Cervical Cancer Screening: HPV no interpreta tion,abstr acted [facility] Provider HEALTH MAINTENANCE Final Result * Colonoscopy (09/25/2021) [facility] Colonoscopy no interpreta tion,abstr acted Anatomical Region Laterality Modality Other Result [facility] Provider HEALTH MAINTENANCE Final Result * HIV Screening (09/15/2013) [facility] HIV Screening abstracted [facility] Provider HEALTH MAINTENANCE Final Result * Hepatitis C Screening (09/15/2013) [facility] Hepatitis C Screening abstracted [facility] Provider HEALTH MAINTENANCE Final Result from Last 3 Months or Most Recently Relevant to Health Maintenance Additional Health Concerns Infection Onset Date Last Indicated ESBL 03/06/2025 03/06/2025 Insurance [facility]IC[facility] Member Subscriber Plan / Payer (Ef fective 2022-Present) Name:ARSENIO SO Relation to Subscriber:Self Name:Arsenio So Payer ID:[id number] Group ID:[id number] Type:Not on file Address: [facility] [employer] [place] [id number] Care Teams Traffic And Transport Planner Relationship Specialty Start Date End Date Idania De La Torre MD [address] [place] [address] [phone] PCP - General Internal Medicine 07/13/24
== END 2025-03-26 11:04 | disposition home or self-care (01) ==
LOC: HO.HSM 10:15
PROVIDERS: PCP Internal Medicine; Visit Provider Registered Nurse
DX: G43.009 Migraine without aura, not intractable, without status migrainosus (principal); G44.229 Chronic tension-type headache, not intractable; R25.1 Tremor, unspecified
CPT/HCPCS: 99214

== ENCOUNTER → 2025-03-26 10:14 | Outpatient (BNVA) | payer OTHER, SELFPAY | PROVIDERS: PCP Internal Medicine; Visit Provider Registered Nurse | DX: G43.009 Migraine without aura, not intractable, without status migrainosus (principal); G44.229 Chronic tension-type headache, not intractable; R25.1 Tremor, unspecified | CPT/HCPCS: 99212 ==

== ENCOUNTER 2025-04-07 11:10 | Outpatient (REF) | payer OTHER, SELFPAY ==
--- NOTE | ~2025-04-07 | MR_ITS ---
CLINICAL HISTORY: M75.42 - Impingement syndrome of left shoulder MR left shoulder without gadolinium Comparison: None provided Findings: Normal alignment without acute fracture or marrow infiltration. No joint effusion. No evidence of subacromial/subdeltoid bursitis. Partial glenohumeral cartilage thinning. [id number]-dv-ymdlwbxk AC osteoarthritis. Relatively mild distal clavicle hypertrophic changes causes tmpw-jr-blapkapl compression effect on the opposing supraspinatus. Correlate clinically for possible subacromial impingement. Mild supraspinatus and subscapularis tendinosis. No rotator cuff tear. Few fatty streaks in the supraspinatus muscle and less than 50% fatty infiltration of the subscapularis and infraspinatus muscles. Unremarkable labrum and biceps tendons. Visualized ligaments are unremarkable. s tendons. Visualized ligaments are unremarkable. Glenoid labrum is intact. IMPRESSION: Partial glenohumeral cartilage thinning. Nrvl-hg-xyzyvuae AC osteoarthritis. Relatively mild distal clavicle hypertrophic changes causes devh-pv-auhdmvcp compression effect on the opposing supraspinatus. Correlate clinically for possible subacromial impingement. Mild supraspinatus and subscapularis tendinosis. No rotator cuff tear. This document has been electronically signed by: Suzette Haynes MD on 04/09/2025 13:18:34
== END 2025-04-07 11:11 | disposition home or self-care (01) ==
LOC: HO.MRI 11:10
PROVIDERS: PCP Internal Medicine; Visit Provider Student in an Organized Health Care Education/Training Program
DX: M75.42 Impingement syndrome of left shoulder (principal)
CPT/HCPCS: 73221

== ENCOUNTER → 2025-04-07 11:10 | Outpatient (BNV) | payer OTHER, SELFPAY | PROVIDERS: PCP Internal Medicine; Visit Provider Radiology Diagnostic Radiology | DX: M19.012 Primary osteoarthritis, left shoulder (principal) | CPT/HCPCS: 73221 ==

== ENCOUNTER 2025-05-28 09:27 | Outpatient (AMB) | payer OTHER, SELFPAY ==
--- NOTE | 2025-05-28 09:32 | A.OFFVIS_ITS ---
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 Required: No Customer Relations Representative: Customer Relations Representative Present Accompanied by: Vinicio Vincent Allergies oxcarbazepine (Trileptal) Allergy (Intermediate, Verified 05/28/25 11:08) hives sumatriptan (Imitrex) Allergy (Intermediate, Verified 05/28/25 11:08) increased heart rate venlafaxine Allergy (Intermediate, Verified 05/28/25 11:08) increased heart rate Cortisone Allergy (Intermediate, Uncoded 05/28/25 11:08) visual disturbance Relpax Allergy (Intermediate, Uncoded 05/28/25 11:08) throat swelling Medication List - Last Reconciled 05/28/25 by Anne Marie Willson LPN albuterol sulfate 90 mcg/actuation 2 puffs inhalation Q4H PRN bupropion HCl XL (Wellbutrin XL) 300 mg PO QAM bupropion HCl XL 150 mg PO QAM cetirizine 10 mg PO DAILY cholecalciferol (vitamin D3) 50 mcg PO DAILY diazepam 5 mg PO BID PRN diclofenac sodium 50 mg PO BID diclofenac sodium 1% topical dicyclomine 10 mg PO BID docusate sodium 100 mg PO BID estradiol 1 patch transdermal 2XW famotidine (Pepcid) 20 mg PO BEDTIME PRN fluticasone propionate 50 mcg/actuation 2 sprays intranasal DAILY PRN gabapentin 300 mg PO TID galcanezumab-gnlm (Emgality Pen) mg subcut levothyroxine 50 mcg PO DAILY magnesium glycinate 100 mg PO TID onabotulinumtoxinA (Botox) 200 units intradermal [id number] ondansetron HCl 4 mg PO Q8H PRN pantoprazole 20 mg PO BID plecanatide (Trulance) 3 mg PO DAILY progesterone micronized 100 mg PO QAM tizanidine 4 mg PO BEDTIME PRN ubrogepant (Ubrelvy) mg PO HPI HPI Botox Migraine: Details: History of Present Illness The patient is a 49-year-old female presenting with chronic migraine management. She experiences chronic migraines approximately four times a week, and her current medication, emgality pen has not been effective. Botox injections administered over a year ago were beneficial, allowing her to tolerate sunlight without inducing migraines. Triggers for her migraines include strong scents, bright lights, and loud noises. Pain Description - Onset: Chronic, with approximately four episodes per week - Quality: Triggered by strong scents, bright lights, and loud noises - Relief: Previously managed effectively with Botox injections Pain Management - Affect: The patient's mood is impacted by the frequency of migraines, limiting her ability to enjoy sunlight and avoid triggers. - Analgesia: Current medication 'femality pen' is ineffective; Botox was previously effective. - Activities of Daily Living: Migraines interfere with daily activities due to sensitivity to light, noise, and scents. [facility] Medical History (Updated 03/26/25 @ 10:30 by Renata Good CNP) Chronic tension type headache Migraine without aura Somatization disorder History of abnormal cervical Pap smear Anal fissure and fistula Fibromyalgia Surgical History Hx of tubal ligation H/O foot surgery Family History Father HTN (hypertension) Hypothyroid Diabetes Hyperlipidemia Mother HTN (hypertension) Diabetes Hyperlipidemia Social History Household Members: Children Housing: House Alcohol intake: never Patient Tobacco Use Status: Never used Tobacco Current occupational status: disabled Physical Exam Vital Signs: Last Vital Signs Pulse 67 05/28/25 09:33 Resp 16 05/28/25 09:33 BP 100/66 05/28/25 09:33 Pulse Ox 100 05/28/25 09:33 Oxygen Delivery Method Room Air 05/28/25 09:33 BMI result Body Mass Index 29.7 Office Procedures Botulinum toxin Injection Details: Chemodenervation of Scalp and Neck for Chronic Migraine (155 units as per protocol approved by FDA) After obtaining written consent, pre-procedure blood pressure and heart rate were stable and recorded in the nursing record. The patient was placed in the sitting position. Bilaterally, 31 points along associate financial representative (2 sites), procerus (1 site), frontalis (4 sites), temporalis (8 sites), occipitalis (6 sites), cervical paraspinals (4 sites), and trapezius (6 sites) were identified and prepped with alcohol. Using sterile technique, a 30 gauge 0.5 inch needle (for all sites other than trapezius) and 25 gauge 1.5 inch (for trapezius only) needle was introduced into each muscle and 5 units per site was injected. A total of 155 units were used. Aspirations were negative for blood, CSF and air prior to injection at all sites. The needle was removed, skin cleansed and a sterile bandage was applied where needed. The patient tolerated the procedure well and no complications were encountered. Following the procedure the patient's vital signs were stable. The patient was discharged home in good condition with post-procedural instructions. Time Out: Immediately prior to the procedure, the following was verbally confirmed that there is a signed consent form and that the correct patient, planned procedure, site and side are consistent with documentation and that necessary equipment and/or blood products are available prior to the start of the case. Complications: none EBL: <5 cc 13431 - Migraine Procedure code (CPT) selection complete Office Meds onabotulinumtoxinA 200 unit solution for injection Performing Provider: Griffin Timmons MD Performing Location: [facility] Administered by: Griffin Timmons MD on 05/29/25 15:12 Dose Route Admin Location Dispensed Lot Number Expiration Date [facility] Assistant Community Manager 200 unit IM 155 ea [id number] 08/05/27 Total Dispensed Waste 155 ea 0 % Assessment & Plan Assessment & Plan (1) Migraine: Code(s): G43.909 - Migraine, unspecified, not intractable, without status migrainosus Category: Medical Plan Plan Patient was informed and verbally consented to the use of an ambient scribe for clinic note documentation during this visit. 1. Chronic Migraine - Resume Botox injections due to previous effectiveness. - Reassess current medication as emgality is ineffective. - Avoid known triggers such as strong scents, bright lights, and loud noises. Discussion Notes During the visit, we discussed the potential resumption of Botox injections due to their previous effectiveness in managing the patient's migraines. We also reviewed the current medication regimen, noting that 'femality pen' is not providing adequate relief. The patient was advised to avoid known migraine triggers such as strong scents, bright lights, and loud noises. Patient Instructions - Consider resuming Botox injections for migraine management. - Reassess the effectiveness of current medication 'femality pen.' - Avoid exposure to strong scents, bright lights, and loud noises to prevent migraine triggers. Orders: Orders AMB Botulinum toxin Injection 05/28/25 G43.909 - Migraine, unspecified, not intractable, without status migrainosus Coding Level of Care Code Procedure Only Diagnoses Migraine G43.909 CPT Codes Botox Injection - Botox 3: 39971 - Migraine ([id number])
[2025-05-28 09:33] VITALS: BP 100/66; PULSE 67; RESP 16; O2SAT 100; BMI 29.7
--- OUTSIDE RECORDS SUMMARY | 2025-05-28 11:08 | XMS_ITS ---
Author Name [facility] Organization Unknown Care Team Organization Name Specialty Phone Email Start Date End Da te [facility] Termed, PROVIDER Primary Care 07/14/202204/06
--- OUTSIDE RECORDS SUMMARY | 2025-05-28 11:08 | XMS_ITS | Clinical Summary ---
Author Organization [facility] Address [address] [place] [address] Phone Care Team Providers Care Cardiac Care Nurse Name Role Phone Idania De La Torre MD Primary Care Provider [phone] Allergies Active Allergy Reactions Criticality Noted Date [...] ROUTE FOR 84 DAYS. 03/24/20 21 Active fluticasone propionate (FLONASE) 50 mcg/actuation nasal [...] as needed for Nausea. 07/01/20 23 Active senna (SENOKOT) 8.6 mg tablet TAKE 1 TABLET BY MOUTH EVERY DAY 05/27/20 23 Active terbinafine (LamISIL) 250 mg tablet Take 1 Tablet by mouth daily for 90 days Active plecanatide (TRULANCE) 3 mg tablet Take 1 Tablet by mouth daily. Active Emgality Pen 120 mg/mL injection pen [...] a day with meals. 02/18/20 25 Active triamcinolone (KENALOG) 0.1 % ointment Apply topically 2 (two) times a day if needed for irritation or rash. 60 g 1 02/24/20 25 025 Active levothyroxine (SYNTHROID, LEVOTHROID) 50 mcg tablet TAKE 1 TABLET BY MOUTH EVERY DAY 90 tablet 1 04/09/20 25 Active pantoprazole (PROTONIX) 20 mg EC tablet TAKE 1 TAB 2 TIMES DAILY BEFORE BREAKFAST & DINNER ON EMPTY STOMACH, WAIT 30 MINS AND THEN EAT 180 tablet 3 04/11/20 25 Active famotidine (PEPCID) 20 mg tablet Take 1 tablet (20 mg total) by mouth 1 (one) time each day. 90 tablet 1 04/11/20 25 Active metoclopramid e (REGLAN) 10 mg tablet TAKE 1 TABLET BY MOUTH 3 TIMES A DAY NEEDED FOR VOMITING 90 tablet 1 05/03/20 25 Active diclofenac (VOLTAREN) 1 % topical gel APPLY TOPICALLY 2 TIMES DAILY NEEDED FOR PAIN. 100 g 1 05/09/20 25 Active dicyclomine (BENTYL) 10 mg capsule Take 1 capsule (10 mg total) by mouth 4 (four) times a day (before meals and nightly). 360 each 3 05/14/20 25 026 Active dicyclomine (BENTYL) 10 mg capsule TAKE 1 CAPSULE BY MOUTH 4 TIMES DAILY (BEFORE MEALS AND NIGHTLY). 360 capsule 1 11/15/19 25 025 Discontinued(R eorder) metoclopramid e (REGLAN) 10 mg tablet TAKE 1 TABLET BY MOUTH 3 TIMES A DAY NEEDED FOR VOMITING 90 tablet 1 03/06/20 25 025 Discontinued diclofenac (VOLTAREN) 1 % topical gel APPLY TOPICALLY 2 TIMES DAILY NEEDED FOR PAIN. 100 g 04/10/20 25 025 Discontinued Active Problems Problem Noted Date Diagnosed Date Anxiety 06/08/2024 Bipolar depression ([facility] V24, [facility] V28) Esophageal reflux 06/08/2024 Fibromyalgia 06/08/2024 Migraine 06/08/2024 Ganglion cyst of left foot 08/19/2022 Hyperlipidemia 09/25/2021 Overview (06/08/2024): 09/27 - ASCVD score .5% Neck pain 10/31/2020 Chronic insomnia 11/01/2017 Overview (06/08/2024): 10/2017 Diagnostic Sleep Study did not reveal sleep apnea. Erythromelalgia ([facility] V24) 09/13/2017 Chest pain 05/27/2014 Overview [...] Papanicolaou smear of cervix and cervical HPV [facility] IMO Update Fall 2015 Encounters Date Type Department Care Team Description 05/18/2025 11:00 AM EDT Office Visit Gastroenterology - [place] [address] [facility] [address] [place] [phone] Valerie Barr NP Gastroparesis (Primary Dx); Gastroesophageal reflux disease without esophagitis; Chronic constipation 04/17/2025 2:00 PM EDT Office Visit Orthopedic Surgery - [place] [address] [facility] [address] [place] [phone] Ignacio Alonzo, DPM Plantar fascial fibromatosis (Primary Dx); Arthritis of left ankle; Tendinitis of right ankle 04/10/2025 6:32 PM EDT - 04/10/2025 11:59 PM EDT Hospital Encounter Radiology Department - [address] [phone] Tremor, unspecified Discharge Disposition: Home or Self Care 03/12/2025 2:45 PM EDT Office Visit Orthopedic Surgery - [place] [address] [place] [phone] Ignacio Alonzo, DPM Plantar fascial fibromatosis (Primary Dx); Tendinitis of right ankle 03/06/2025 9:45 AM EDT Office Visit Adult Medicine [address] [phone] Galina Bal PA Acute cystitis with hematuria (Primary Dx) 03/06/2025 Telephone Adult Medicine [address] [phone] Idania De La Torre MD from Last 3 Months Immunizations Name Administration Dates Next Due Influenza Quadravalent, MDCK , 0.5ml, preservative free (Flucelvax) 6mo and older 08/19/2022,06/21/2020 Influenza Quadravalent, MDCK , 0.5ml, with preservative (Flucelvax) 6mo and older 06/28/2018 Influenza trivalent, with preservative (Fluzone; Afluria) 6mo and older 09/22/2019,06/09/2016,08/20/2014,2012,08/28/2010 Influenza, Unspecified 07/02/2021,09/22/2019, NPS SARS-CoV-2 COVID-19, mRNA, LNP-S, preservative free 06/18/2021,05/28/2021 Tdap Tetanus diptheria acell ular pertussis (Boostrix; Adacel) 7yo and older 10/20/2015,07/21/2013 Surgical History Surgery Date Site/Laterality Comments BUNIONECTOMY 2001 PROCEDURE: [place] CORRJ HLX VLGS BNCTY SESMDC W/DOUBLE OSTEOTOMY; COMMENT: right FLEXIBLE SIGMOIDOSCOPY 05/26/2011 PROCEDURE: HISTORICAL FLEXIBLE SIGMOIDOSCOPY; COMMENT: ext hemorrhoidal tags x 2 OTHER SURGICAL HISTORY 07/18/2013 PROCEDURE: NUCLEAR EXAM OF STOMACH EMPTYING; COMMENT: [facility] - delayed liquid and solid material gastric emptying suggesting gastroparesis. COLONOSCOPY 01/28/2016 PROCEDURE: HISTORICAL COLONOSCOPY; COMMENT: normal UPPER GASTROINTESTINAL ENDOSCOPY 08/25/2013 PROCEDURE: FL UPPER GI ENDOSCOPY PERFORMED; COMMENT: normal on omeprazole treatment. UPPER GASTROINTESTINAL ENDOSCOPY 11/11/2005 PROCEDURE: FL UPPER GI ENDOSCOPY PERFORMED; COMMENT: Dr Horner - normal OTHER SURGICAL HISTORY PROCEDURE: [place] HEMORRHOID NTRNL & XTRNL 1 COLUMN W/FISSURECTO; [place] [facility] [place] COLONOSCOPY 09/25/2021 PROCEDURE: HISTORICAL COLONOSCOPY; COMMENT: normal ESOPHAGOGASTRODUODENOSCOPY 01/08/2022 PROCEDURE: FL EGD TRANSORAL BIOPSY SINGLE/MULTIPLE; COMMENT: EGD normal including biopsy TUBAL LIGATION 11/24/2018 PROCEDURE: HISTORICAL TUBAL LIGATION BUNIONECTOMY 2001 Right PROCEDURE: BUNION SURGERY, SIMPLE REMOVAL ANKLE SURGERY 06/2023 Left PROCEDURE: HISTORICAL ANKLE SURGERY; COMMENT: ligament repair Medical History Medical History Date Comments Historical Medical DX 12/11/2009 DX:Abnorma l Pap smear and cervical HPV (human papillomavirus); COMMENT: [facility] Anxiety DX:Anxiety; COMM ENT: followed by psychiatrist/ therapist in [place] Esophageal reflux DX:Esophageal reflux Bipolar depression (CMS/HCC V24, CMS/HCC V28) DX:Bipolar depression ([facility]); COMMENT: per patient, no records from psychiatrist Migraine DX:Migraine Fibromyalgia DX:Fibromyalgia; 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 For example, director of early childhood or elderly care for an older adult? [...] Sign Reading Time Taken Comments Blood Pressure 97/74 05/18/2025 10:47 AM EDT Pulse 66 05/18/2025 10:47 AM EDT Temperature 36.5 C (97.7 F) 03/06/2025 9:42 AM EDT Respiratory Rate 12 03/06/2025 9:42 AM EDT Oxygen Saturation 98% 05/18/2025 10:47 AM EDT Inhaled Oxygen Concentration - - Weight 69 kg (152 lb 3.2 oz) 03/06/2025 9:42 AM EDT Height 151.1 cm (4' 11.5 ) 05/18/2025 10:47 AM E DT Body Mass Index 30.23 03/06/2025 9:42 AM EDT Plan of Treatment Upcoming Encounters Date Type Department Care Team (Late st Contact Info) Description 06/05/2025 10:00 AM EDT Office Visit Adult Medicine [address] [phone] Idania De La Torre MD [address] [place] [address] 01/29/2026 9:20 AM EDT Appointment Radiology Department - [address] [phone] 03/13/2026 9:30 AM EDT Office Visit Adult [address] [phone] Idania De La Torre MD [address] [place] [address] 05/20/2026 9:20 AM EDT Office Visit Gastroenterology - [place] 175 [facility] 175 [facility] [address] [place] [phone] Valerie Barr, [place] 175 [facility] [address] [place] [address] Health Maintenance Due Date Last Done Comments Hepatitis B Vaccines (1 of 3 - 19+ 3-dose series) 1994 Medicare Annual Wellness Visit 08/15/2022 COVID-19 Vaccine (2024- season) 2025 06/18/2021, 05/28/2021 Influenza Vaccine (#1) 2025 2, 07/02/2021, 06/21/2020, Additional history exists Social Influencers of Health Screening 07/13/2025 07/13/2024 DTaP,Tdap,and Td Vaccines (3 - Td or Tdap) 10/20/2025 10/20/2015, 07/21/2013 Breast Cancer Screening 01/24/2026 01/25/20 25, 07/20/2024, 01/18/2024, Additional history exists Cervical Cancer Screening: HPV 04/06/2028 04/06/2023, 09/15/2021 [...] Procedure Name Priority Date/Time Associated Diagnosis Comments MR BRAIN WO CONTRAST Routine 04/10/2025 7:15 PM EDT Tremor, unspecified EXTERNAL MRI REPORT 04/07/2025 EXTERNAL MRI REPORT 04/07/2025 POC URINE AUTO W/O MICRO Routine 03/06/2025 [...] Other fatigue VITAMIN B12 AND FOLATE Routine 9:39 AM EDT Other fatigue IRON AND TIBC Routine 02/26/2025 9:39 AM EDT Other fatigue FERRITIN Routine 02/26/2025 9:39 AM EDT Other fatigue THYROID STIMULATING HORMONE WITH REFLEX TO FREE T4 AND FREE T3 Routine 02/26/2025 9:39 AM EDT Other fatigue MG MAMMO DIGITAL SCREENING W OTONIEL BILAT Routine 01/24/2025 9:24 AM EDT Encounter for screening mammogram for breast cancer HPV Routine 04/06/2023 COLONOSCOPY Routine 09/25/2021 HEPATITIS C SCREENING Routine 09/15/2013 HIV SCREENING Routine 09/15/2013 from Last 3 Months or Most Recently Relevant to Health Maintenance Results * MR Brain wo Contrast (04/10/2025 7:15 PM EDT) Anatomical Region Laterality Modality Head and Neck Magnetic Resonan ce 04/11/2025 4:44 PM EDT Impressions 04/12/2025 3:42 PM EDT Impression: 1. No acute intracranial findings -------- FINAL REPORT -------- Dictated By: Nitza Anaya Dictated Date: 04/11/2025 16:44 ET Assigned Physician: Nitza Anaya Reviewed and Electronically Signed By: Nitza Anaya Signed Date: 04/12/2025 15:42 ET Workstation ID: [id number] Transcribed By: Self Edit Transcribed Date: 04/11/2025 16:46 ET Narrative 04/12/2025 3:42 PM EDT MRI BRAIN WITHOUT CONTRAST Clinical Statement: h/o headaches, chronic depression Comparison: None Technique: Multiplanar, multisequence MR images of the brain were obtained without contrast. Findings: There is no evidence of diffusion restriction. Minimal white matter hyperintensities within the posterior right parietal lobe consistent with microvascular ischemic changes. Intracranial flow voids are within normal limits. The ventricular system is normal in size and morphology. The basilar cisterns are within normal limits the craniocervical junction is grossly within normal limits. The orbits and globes are within normal limits. Minimal mucosal thickening within the paranasal sinuses. Procedure Note Nitza Anaya MD - 04/12/2025 MRI BRAIN WITHOUT CONTRAST Clinical Statement: h/o headaches, chronic depression Comparison: None Technique: Multiplanar, multisequence MR images of the brain wereobtained without contrast. Findings: There is no evidence of diffusion restriction. Minimal whitematter hyperintensities within the posterior right parietal lobeconsistent with microvascular ischemic changes. Intracranial flow voidsare within normal limits. The ventricular system is normal in size andmorphology. The basilar cisterns are within normal limits thecraniocervical junction is grossly within normal limits. The orbits andglobes are within normal limits. Minimal mucosal thickening within theparanasal sinuses. IMPRESSION: Impression: 1. No acute intracranial findings -------- FINAL REPORT -------- Dictated By: Nitza Anaya Dictated Date: 04/11/2025 16:44 ET Assigned Physician: Nitza Anaya Reviewed and Electronically Signed By: Nitza Anaya Signed Date: 04/12/2025 15:42 ET Workstation ID: [id number] Transcribed By: Self Edit Transcribed Date: 04/11/2025 16:46 ET Renata Good NP IMG MRI PROCEDURES Final Result * External MRI Report (04/07/2025) Only the most recent of2 resultswithin the time period is included. Anatomical Region Laterality Modality Magnetic Resonan ce Provider [facility] IMG MRI PROCEDURES Final Result * (ABNORMAL) POC Urine Auto W/O Micro (03/06/2025 10:09 AM EDT) Leukocytes UA POC Positive(A) Negative Nitrite UA POC Negative Negative Urobilinogen UA POC Negative Negative Protein UA POC Negative Negative PH UA POC 5.0 5.0 - 9.0 Blood UA POC Positive(A) Negative, Trace Specific [place] UA POC 1.020 1.001 - 1.035 Ketones UA POC Negative Negative Bilirubin UA POC Negative Negative Glucose UA POC Normal Normal, Trace Color UA POC Dark Yellow CLARITY, URINE POC Slightly Cloudy Urine Urine specimen obtained by clean catch procedure / Unknown 03/06/2025 10:09 AM EDT Galina GUERERRO POINT OF CARE TEST ENTER/EDIT ORDERABLES Final Result * (ABNORMAL) Culture urine (03/06/2025 9:58 AM EDT) Culture, Urine >100,000 CFU/mL Escherichia coli ESBL(A) YURIY 03/09/2025 7:40 AM EDT [facility] Comment: THIS ORGANISM IS POSITIVE [...] MICROBIOLOGY - GENERAL ORD ERABLES Final Result [facility] [address] [place] [address], * Thyroid stimulating hormone with reflex to free t4 and free t3 (02/26/2025 9:39 AM EDT) TSH 1.35 0.40 - 4.00 mcIU/mL LAB CHEMISTRY METHOD 02/26/2025 9:09 PM EDT [facility] Blood Venous blood specimen / Unknown Venipuncture / Unknown 02/26/2025 9:39 AM EDT 02/26/2025 9:39 AM EDT Idania De La Torre MD LAB BLOOD ORDERABLES Final Resul t Performing Organization Address City/[facility]/ZIP Co de Phone Number [facility] [address] [place] [address], [place] [phone] * (ABNORMAL) Vitamin B12 and folate (02/26/2025 9:39 AM EDT) Pathologist [facility] Vitamin B-12 926(H) 250 - 900 pcg/mL LAB CHEMISTRY METHOD 02/26/2025 10:29 PM EDT [facility] Folate >20.0(H) 2.8 - 17.0 ng/ml LAB CHEMISTRY METHOD 02/26/2025 10:29 PM EDT [facility] Blood Venous blood specimen / Unknown Venipuncture / Unknown 02/26/2025 9:39 AM EDT 02/26/2025 9:39 AM EDT Idania De La Torre MD LAB BLOOD ORDERABLES Final Resul t Performing Organization Address [facility]/ZIP Co de Phone Number [facility] [address] [place] [address], [place] [phone] * (ABNORMAL) Lipid panel with reflex to direct LDL (02/26/2025 9:39 AM EDT) Cholesterol 212(H) 0 - 200 mg/dL LAB CHEMISTRY METHOD 02/26/2025 8:58 PM EDT [facility] Triglycerides 65 0 - 150 mg/dL LAB CHEMISTRY METHOD 02/26/2025 8:58 PM EDT [facility] HDL 59 >=40 mg/dL LAB CHEMISTRY METHOD 02/26/2025 8:58 PM EDT [facility] LDL Calculated 140(H) 0 - 100 mg/dL LAB CHEMISTRY METHOD 02/26/2025 8:58 PM EDT [facility] VLDL Cholesterol [place] 13 mg/dL LAB CHEMISTRY METHOD 02/26/2025 8:58 PM EDT [facility] Non HDL Chol. (LDL+VLDL) 153(H) <145 mg/dL LAB CHEMISTRY METHOD 02/26/2025 8:58 PM EDT [facility] Chol/HDL Ratio 3.6 0.0 - 4.4 LAB CHEMISTRY METHOD 02/26/2025 8:58 PM EDT [facility] Blood Venous blood specimen / Unknown Venipuncture / Unknown 02/26/2025 9:39 AM EDT 02/26/2025 9:39 AM EDT us Idania De La Torre MD LAB BLOOD ORDERABLES Final Resul t [facility] [address] [place] [address], [place] [phone] * CBC auto differential (02/26/2025 9:39 AM EDT) WBC 5.3 4.8 - 10.8 K/mcL LAB HEMETOLOGY METHOD 02/26/2025 12:29 [facility] RBC 4.50 3.80 - 4.80 M/mcL LAB HEMETOLOGY METHOD 02/26/2025 12:29 PM [facility] Hemoglobin 13.7 11.5 - 16.0 g/dL LAB HEMETOLOGY METHOD 02/26/2025 12:29 PM EDT [facility] Hematocrit 41.6 35.0 - 47.0 % LAB HEMETOLOGY METHOD 02/26/2025 12:29 PM [facility] MCV 92.0 79.0 - 98.0 FL LAB HEMETOLOGY METHOD 02/26/2025 12:29 PM [facility] MCH 30.3 27.0 - 32.0 pcg LAB HEMETOLOGY METHOD 02/26/2025 12:29 PM EDT [facility] MCHC 32.9 32.0 - 37.0 g/dL LAB HEMETOLOGY METHOD 02/26/2025 12:29 PM [facility] RDW 11.7 11.0 - 15.0 % LAB HEMETOLOGY METHOD 02/26/2025 12:29 PM [facility] Platelets 227 130 - 400 K/mcL LAB HEMETOLOGY METHOD 02/26/2025 12:29 PM [facility] MPV 10.6 7.0 - 11.0 FL LAB HEMETOLOGY METHOD 02/26/2025 12:29 PM [facility] NRBC 0.0 <1.0 % LAB HEMETOLOGY METHOD 02/26/2025 12:29 PM [facility] NRBC Absolute 0.00 <0.10 K/mcL LAB HEMETOLOGY METHOD 02/26/2025 12:29 PM [facility] Neutrophils Relative 55.7 % LAB HEMETOLOGY METHOD 02/26/2025 12:29 PM [facility] Lymphocytes Relative 31.8 % LAB HEMETOLOGY METHOD 02/26/2025 12:29 PM [facility] Monocytes Relative 9.1 % LAB HEMETOLOGY METHOD 02/26/2025 12:29 PM [facility] Eosinophils Relative 2.1 % LAB HEMETOLOGY METHOD 02/26/2025 12:29 PM [facility] Basophils Relative 1.1 % LAB HEMETOLOGY METHOD 02/26/2025 12:29 PM [facility] Immature Granulocytes Relative 0.2 % LAB HEMETOLOGY METHOD 02/26/2025 12:29 PM [facility] Neutrophils Absolute 2.95 1.50 - 7.00 K/mcL LAB HEMETOLOGY METHOD 02/26/2025 12:29 PM [facility] Lymphocytes Absolute 1.68 1.00 - 5.00 K/mcL LAB HEMETOLOGY METHOD 02/26/2025 12:29 PM EDT [facility] Monocytes Absolute 0.48 0.20 - 1.00 K/[facility] LAB HEMETOLOGY METHOD 02/26/2025 12:29 PM EDT [facility] Eosinophils Absolute 0.11 0.00 - 0.50 K/[facility] LAB HEMETOLOGY METHOD 02/26/2025 12:29 PM EDT [facility] Basophils Absolute 0.06 0.00 - 0.20 [facility] LAB HEMETOLOGY METHOD 02/26/2025 12:29 PM EDT [facility] Immature Granulocytes Absolute 0.01 0.00 - 0.03 K/[facility] HEMETOLOGY METHOD 02/26/2025 12:29 PM EDT [facility] Blood Venous blood specimen / Unknown Venipuncture / Unknown 02/26/2025 9:39 AM EDT 02/26/2025 9:39 AM EDT us Idania De La Torre MD LAB BLOOD ORDERABLES Final Resul t [facility] [address] [place] [address], * Iron and TIBC (02/26/2025 9:39 AM EDT) Iron 110 40 - 150 mcg/dL LAB CHEMISTRY METHOD 02/26/2025 8:58 PM EDT [facility] TIBC 298 250 - 450 mcg/dL LAB CHEMISTRY METHOD 02/26/2025 8:58 PM EDT [facility] Iron Saturation 37 15 - 50 % LAB CHEMISTRY METHOD 02/26/2025 8:58 PM EDT [facility] Blood Venous blood specimen / Unknown Venipuncture / Unknown 02/26/2025 9:39 AM EDT 02/26/2025 9:39 AM EDT us Idania De La Torre MD LAB BLOOD ORDERABLES Final Resul t Performing Organization Address [facility] de Phone Number [facility] [address] [place] [address], [place] [phone] * Vitamin D 25 hydroxy (02/26/2025 9:39 AM EDT) Pathologist [facility] Vit D, 25-Hydroxy 39.4 30.0 - 80.0 ng/mL LAB CHEMISTRY METHOD 02/26/2025 9:09 PM EDT [facility] Blood Venous blood specimen / Unknown Venipuncture / Unknown 02/26/2025 9:39 AM EDT 02/26/2025 9:39 AM EDT us Idania De La Torre MD LAB BLOOD ORDERABLES Final Resul t Performing Organization Address [facility] de Phone Number [facility] [address] [place] [address], [place] [phone] * Ferritin (02/26/2025 9:39 AM EDT) [facility] Ferritin 114 8 - 252 ng/mL LAB CHEMISTRY METHOD 02/26/2025 8:58 PM EDT [facility] Blood Venous blood specimen / Unknown Venipuncture / Unknown 02/26/2025 9:39 AM EDT 02/26/2025 9:39 AM EDT us Idania De La Torre MD LAB BLOOD ORDERABLES Final Resul t Performing Organization Address City/[facility] de Phone Number [facility] [address] [place] [address], [place] [phone] * Comprehensive metabolic panel (02/26/2025 9:39 AM EDT) [facility] Sodium 140 133 - 145 mmol/L LAB CHEMISTRY METHOD 02/26/2025 8:58 PM [facility] Potassium 4.7 3.5 - 5.5 mmol/L LAB CHEMISTRY METHOD 02/26/2025 8:58 PM [facility] Chloride 108 96 - 110 mmol/L LAB CHEMISTRY METHOD 02/26/2025 8:58 PM [facility] CO2 26 21 - 32 mmol/L LAB CHEMISTRY METHOD 02/26/2025 8:58 PM [facility] Anion Gap 6 3 - 11 LAB CHEMISTRY METHOD 02/26/2025 8:58 PM [facility] Glucose 94 70 - 100 mg/dL LAB CHEMISTRY METHOD 02/26/2025 8:58 PM [facility] BUN 13 5 - 25 mg/dL LAB CHEMISTRY METHOD 02/26/2025 8:58 PM [facility] Creatinine 0.78 0.50 - 1.10 mg/dL LAB CHEMISTRY METHOD 02/26/2025 8:58 PM [facility] eGFR 93 >=60 mL/min/1. 73m2 LAB CHEMISTRY METHOD 02/26/2025 8:58 PM [facility] Comment:Calculation based on the Chronic Kidney Disease Epidemiology Collaboration (CKD-EPI) equation refit without adjustment for race. BUN/Creatinine Ratio 16.7 LAB CHEMISTRY METHOD 02/26/2025 8:58 PM [facility] Calcium 9.0 8.5 - 10.5 mg/dL LAB CHEMISTRY METHOD 02/26/2025 8:58 PM [facility] AST (SGOT) 18 10 - 42 unit/L LAB CHEMISTRY METHOD 02/26/2025 8:58 PM [facility] ALT (SGPT) 25 10 - 60 unit/L LAB CHEMISTRY METHOD 02/26/2025 8:58 PM [facility] Alkaline Phosphatase 74 42 - 121 unit/L LAB CHEMISTRY METHOD 02/26/2025 8:58 PM EDT [facility] Total Protein 7.2 6.0 - 8.0 g/dL LAB CHEMISTRY METHOD 02/26/2025 8:58 PM EDT [facility] Albumin 4.3 3.2 - 5.0 g/dL LAB CHEMISTRY METHOD 02/26/2025 8:58 PM EDT [facility] Total Bilirubin 0.5 0.0 - 1.4 mg/dL LAB CHEMISTRY METHOD 02/26/2025 8:58 PM EDT [facility] Blood Venous blood specimen / Unknown Venipuncture / Unknown 02/26/2025 9:39 AM EDT 02/26/2025 9:39 AM EDT us Idania De La Torre MD LAB BLOOD ORDERABLES Final Resul t [facility] [address] [place] [address], [place] [phone] * MG Mammo Digital Screening w Otoniel [...] is recommended in 1 year. Mammo Location: [facility], [address] [place] [address], [phone], . -------- FINAL REPORT -------- Dictated By: Ananth Miramontes Dictated Date: 01/24/2025 11:29 ET Assigned Physician: Ananth Miramontes Reviewed and Electronically Signed By: Ananth Miramontes Signed Date: 01/24/2025 11:37 ET Workstation ID: [id number] Transcribed By: Self Edit Transcribed Date: 01/24/2025 [...] is recommended in 1 year. Mammo Location: [facility], [address] [place] [address], [phone], . -------- FINAL REPORT -------- Dictated By: Ananth Miramontes Dictated Date: 01/24/2025 11:29 ET Assigned Physician: Ananth Miramontes Reviewed and Electronically Signed By: Ananth Miramontes Signed Date: 01/24/2025 11:37 ET Workstation ID: [id number] Transcribed By: Self Edit Transcribed Date: 01/24/2025 11:29 ET Idania De La Torre MD IMG BI PROCEDURES Final Result * Cervical Cancer Screening: HPV (04/06/2023) [facility] Cervical Cancer Screening: HPV no interpreta tion,abstr acted Historical Provider HEALTH MAINTENANCE Final Result * Colonoscopy (09/25/2021) [facility] Colonoscopy no interpreta tion,abstr acted Anatomical Region Laterality Modality Other Historical Provider HEALTH MAINTENANCE Final Result * HIV Screening (09/15/2013) [facility] HIV Screening abstracted Historical Provider HEALTH MAINTENANCE Final Result * Hepatitis C Screening (09/15/2013) [facility] Hepatitis C Screening abstracted Historical Provider HEALTH MAINTENANCE Final Result from Last 3 Months or Most Recently Relevant to Health Maintenance Additional Health Concerns Infection Onset Date Last Indicated ESBL 03/06/2025 03/06/2025 Insurance [facility] MEDIC[facility] Member Subscriber Plan / Payer (Ef fective 2022-Present) Name:ARSENIO SHORT Relation to Subscriber:Self Name:Arsenio Short Payer ID:[id number] Group ID:[id number] Type:Not on file Address: [place] [address] [place] [address] Care Teams Cardiac Care Nurse Relationship Specialty Start Date End Date Idania De La Torre MD [address] [place] [phone] PCP - General Internal Medicine 07/13/24
== END 2025-05-28 10:26 | disposition home or self-care (01) ==
LOC: HO.PMC 09:27
PROVIDERS: PCP Internal Medicine; Visit Provider Internal Medicine
DX: G43.909 Migraine, unspecified, not intractable, without status migrainosus (principal)
CPT/HCPCS: 64615

== ENCOUNTER → 2025-05-28 09:27 | Outpatient (BNVA) | payer OTHER, SELFPAY | PROVIDERS: PCP Internal Medicine; Visit Provider Internal Medicine | DX: G44.229 Chronic tension-type headache, not intractable (principal); R25.1 Tremor, unspecified | CPT/HCPCS: 64615; 99212; J0585 ==

== ENCOUNTER 2025-05-28 10:36 | Outpatient (AMB) | payer OTHER, SELFPAY ==
--- NOTE | 2025-05-28 11:03 | MHC.OFFVIS ---
Intake Visit Reasons: 2 MO FU Allergies oxcarbazepine (Trileptal) Allergy (Intermediate, Verified 05/28/25 11:08) hives sumatriptan (Imitrex) Allergy (Intermediate, Verified 05/28/25 11:08) increased heart rate venlafaxine Allergy (Intermediate, Verified 05/28/25 11:08) increased heart rate Cortisone Allergy (Intermediate, Uncoded 05/28/25 11:08) visual disturbance Relpax Allergy (Intermediate, Uncoded 05/28/25 11:08) throat swelling Medication List - Last Reconciled 05/28/25 by Renata Good, LINDSAY albuterol sulfate 90 mcg/actuation 2 puffs inhalation Q4H PRN bupropion HCl XL (Wellbutrin XL) 300 mg PO QAM bupropion HCl XL 150 mg PO QAM cetirizine 10 mg PO DAILY cholecalciferol (vitamin D3) 50 mcg PO DAILY diazepam 5 mg PO BID PRN diclofenac sodium 50 mg PO BID diclofenac sodium 1% topical dicyclomine 10 mg PO BID docusate sodium 100 mg PO BID estradiol 1 patch transdermal 2XW famotidine (Pepcid) 20 mg PO BEDTIME PRN fluticasone propionate 50 mcg/actuation 2 sprays intranasal DAILY PRN gabapentin 300 mg PO TID galcanezumab-gnlm (Emgality Pen) mg subcut levothyroxine 50 mcg PO DAILY magnesium glycinate 100 mg PO TID onabotulinumtoxinA (Botox) 200 units intradermal [id number] ondansetron HCl 4 mg PO Q8H PRN pantoprazole 20 mg PO BID plecanatide (Trulance) 3 mg PO DAILY progesterone micronized 100 mg PO QAM tizanidine 4 mg PO BEDTIME PRN ubrogepant (Ubrelvy) mg PO HPI Comments Details: 49 yo woman with life-long h/o headaches, chronic depression and anxiety, and mild tremor worsened with stress and anxiety. Migraines were initially better with Emgality, but were now happening about 4x/week. Emgality did not help with neck pain and scalp sensitivity that Botox seemed to help with in the past. Ubrelvy as needed helped, but she was having to repeat dose more often. She had Botox today with pain management for migraines and next appointment was scheduled for 08/2025. She was still having some tremors, only to right side, arm and leg, mostly hand and foot, which started earlier this year. It was associated with a weird sensation which she also had to right side of face. Off balance at times, but no falls. It could be triggered by stress. No functional impairment. She had some anxiety, and was working with therapist and psychiatrist. She had report of MRI on her phone. [facility] Medical History (Updated 03/26/25 @ 10:30 by Renata Good CNP) Chronic tension type headache Migraine without aura Somatization disorder History of abnormal cervical Pap smear Anal fissure and fistula Fibromyalgia Surgical History Hx of tubal ligation H/O foot surgery Family History Father HTN (hypertension) Hypothyroid Diabetes Hyperlipidemia Mother HTN (hypertension) Diabetes Hyperlipidemia Social History Household Members: Children Housing: House Alcohol intake: never Patient Tobacco Use Status: Never used Tobacco Current occupational status: disabled Review of Systems Const Denies chills, Denies daytime sleepiness, Denies difficulty sleeping, Denies fatigue, Denies fever(s), Denies frequent falls, Reports headache(s), Denies increased appetite, Denies poor appetite, Denies snoring, Denies weakness, Denies weight gain and Denies weight loss Eyes Denies loss of vision ENT Denies vertigo, Denies dizziness and Reports headache(s) Card Denies chest pain at rest, Denies chest pain with activity, Denies syncope, Denies leg edema and Denies palpitations Resp Denies snoring GI Denies constipation, Denies heartburn, Denies diarrhea and Denies nausea Denies urinary frequency, Denies urinary incontinence and Denies urinary urgency Musc Denies abnormal gait, Denies numbness and Denies tingling Skin/Breast Denies dry skin and Denies rash Neuro Denies abnormal gait, Denies vertigo, Denies dizziness, Denies syncope, Denies frequent falls, Reports headache(s), Denies lack of coordination, Denies loss of vision, Denies memory loss, Denies numbness, Denies restless legs, Denies seizure-like activity, Denies tingling, Denies paresthesias, Denies tremor(s) and Denies weakness Psych Denies anxiety, Denies depression, Denies auditory hallucinations, Denies memory loss, Denies visual hallucinations and Denies suicidal ideation Endo Denies fatigue and Denies palpitations Physical Exam Const Other: General Appearance:? normal, in no acute distress. Skin:? no rashes, no significant birthmarks. Heart:? S1, S2 normal, no murmurs. Lungs:? clear anteriorly and posteriorly. Extremities:? no edema. Psych:? alert, oriented, cognitive function intact, cooperative with exam. Neuro Other: Mental Status:?Normal attention, orientation, memory and affect.? Cranial Nerves:?Pupils are equal, round and reactive to light. External occular muscles are intact. Visual sahu are full. Face is symmetrical. Facial sensations are normal. Tongue is midline. Palate elevates symmetrically. Shoulder shrugging is normal. Hearing to bedside conversation is normal. Motor Examination:?Normal muscle tone, bulk and strength,?Deep tendon reflexes are 2+,?Plantars are flexor.? Sensory Exam:?....? Coordination:?No ataxia,?no titubation.? Gait Exam: Within normal limits. Cerebellar Signs:?Sxmjvv-kg-kcyq and skds-fb-hsun is normal.? Extrapyramidal System:?No tremor, rigidity with normal facial expressions.? Pronator Drift:?Not present.? Involuntary Movements:?Mild right hand postural vs atypical tremor Speech:?Normal.? Results Reviewed Results Reviewed: MRI Brain WO at [place] in 04/2025: Minimal white matter hyperintensities within the posterior right parietal lobe consistent with microvascular changes (reported) MRI brain WO at [place] in January 2024: A few punctate WM non specific lesions MRI brain WO at [facility] [place] 2020: A few punctate frontal b/l WM faint hyperintensities, not significant. Mild cerebellar atrophy CT brain WO at [facility] in 2016: Mild cerebellar atrophy Assessment & Plan Assessment & Plan (1) Migraine without aura: Code(s): G43.009 - Migraine without aura, not intractable, without status migrainosus Category: Medical Qualifiers: Intractability: not intractable Status migrainosus presence: without status migrainosus Qualified Code(s): G43.009 - Migraine without aura, not intractable, without status migrainosus Plan: She had report of brain MRI from [place] in 04/2025 on phone, results reviewed. Will request copy of report. She had first Botox today with pain management, next appointment in 08/2025. Stop Emgality. Continue Ubrelvy 100mg 1 tablet as needed for migraines. (2) Chronic tension type headache: Code(s): G44.229 - Chronic tension-type headache, not intractable Category: Medical Qualifiers: Intractability: not intractable Qualified Code(s): G44.229 - Chronic tension-type headache, not intractable (3) Tremors of nervous system: Code(s): R25.1 - Tremor, unspecified Category: Medical Plan Meds tried for migraine control: Amitryptiline, topiramate, propranalol, verapamil, depakoate, triptan, Nurtec, Emgality, Ajovy, Botox Botox helped with neck pain, headaches, and scalp. Emgality: reduced headaches to 8/month, scalp sensitivity was still a problem Ubrelvy as needed helped Coding Level of Care Code Est Pt Level 4 (12421) Diagnoses Migraine without aura and without status migrainosus, not intractable G43.009 Intractability: not intractable Status migrainosus presence: without status migrainosus Chronic tension-type headache, not intractable G44.229 Intractability: not intractable Tremors of nervous system R25.1
== END 2025-05-28 11:26 | disposition home or self-care (01) ==
LOC: HO.HSM 10:36
PROVIDERS: PCP Internal Medicine; Visit Provider Registered Nurse
DX: G43.009 Migraine without aura, not intractable, without status migrainosus (principal); G44.229 Chronic tension-type headache, not intractable; R25.1 Tremor, unspecified
CPT/HCPCS: 99214

== ENCOUNTER 2025-06-07 09:18 | Outpatient (AMB) | payer OTHER, SELFPAY ==
--- OUTSIDE RECORDS SUMMARY | 2025-06-05 10:00 | XMS_ITS | Encounter Summary ---
Author Organization [employer] Address [address] [place] [address] Care Team Providers Care Grey Goods Examiner Name Role Phone Idania De La Torre MD Primary Care Provider [phone] Reason for Referral * Imaging (Routine) - Pending Review Specialty Diagnoses / Procedures Referred By Conttrip cardona Referred To Contact Radiology Diagnoses Lump of skin of back Procedures US Chest Idania De La Torre MD [address] [place] [address] Phone: tel: fax: [address] Phone: tel: Referral ID Status Reason Start Date Expiration Date V isits Requested Visits Authorized [id number] Pending Review 06/05/2025 06/05/2026 1 1 Reason for Visit * Reason Comments Follow-up Encounter Details Date Type Department Care Team ([facility] st Contact Info) Description 06/05/2025 10:00 AM EDT Office Visit Adult Medicine [address] [phone] Idania De La Torre MD [address] [place] [address] Migraine without aura and without status migrainosus, not intractable (Primary Dx); Lump of skin of back Social History Tobacco Use Types Packs/Day Years [...] ed Within the last 3 months, ho rafael many times did you visit the emergency [...] your loved ones. For example, early childhood teacher assistant or elderly care for an older [...] Date Recorded What is your living situation? Unrecognized valu e 07/13/2024 Comments No Sex and Gender Information Value Date Recorded Sex Assigned at Female 09/04/2024 7:58 AM EST Legal Sex Female 5:02 AM EST Gender Identity Female 09/04/2024 7:58 AM EST Sexual Orientation Not on file documented as of this encounter Last Filed Vital Signs Vital Sign Reading Time Taken Comments Blood Pressure 98/58 06/05/2025 9:55 AM EDT Pulse 82 06/05/2025 9:55 AM EDT Temperature 36.2 C (97.2 F) 06/05/2025 9:55 AM EDT Respiratory Rate 14 06/05/2025 9:55 AM EDT Oxygen Saturation 98% 06/05/2025 9:55 AM EDT Inhaled Oxygen Concentration - - Weight 66.2 kg (146 lb) 06/05/2025 9:55 AM EDT Height 151.1 cm (4' 11.5 ) 06/05/2025 9:55 AM ED T Body Mass Index 28.99 06/05/2025 9:55 AM EDT documented in this encounter Ordered Prescriptions Prescription Sig Dispense Quantity Refills Last Filled Start Date End Date celecoxib (CeleBREX) 200 mg capsule Take 1 capsule (200 mg total) by mouth 2 (two) times a day for 8 days. 15 each 06/05/2025 documented in this encounter Progress Notes * Idania De La Torre MD - 06/05/2025 10:00 AM EDT Images from the original note were not included. CHIEF COMPLAINT: Follow-up IDENTIFIER: Leisa Bryant is a 49 y.o. old female. HPI: Patient is a 49-year-old female with history of migraine headaches, anxiety/bipolar disorder, fibromyalgia, chronic constipation/diarrhea, gastroparesis, subclinical hypothyroidism, hyperlipidemia, gestational diabetes mellitus, Planter fasciitis, ganglion cyst of left foot who is here for FOLLOW UP VISIT. Migraine headaches-follows with neurology, previous relief with Botox injections. Patient follows with pain management at [facility], received Botox on 05/28, no significant relief. Taking Ubrelvy. Emgality stopped by neurology Patient reports postmenopausal bleeding, reports was evaluated by her PA[employer] T[employer]ER and underwent endometrialendometrial Biopsy which was normal. Patient reports that she felt a small lump on the left side of her lower back, nontender, has not changed in size. ROS: Review of systems: Pertinent items are noted in HPI PAST MEDICAL HISTORY: Patient Active Problem List Diagnosis Date Noted Anxiety 06/08/2024 Bipolar depression ([facility] V24, [facility] V28) 06/08/2024 Esophageal reflux 06/08/2024 Fibromyalgia 06/08/2024 Migraine 06/08/2024 Ganglion cyst of left foot 08/19/2022 Hyperlipidemia 09/25/2021 Neck pain 10/31/2020 Chronic insomnia 11/01/2017 Erythromelalgia ([facility] V24) 09/13/2017 Chest pain 05/27/2014 Gastroparesis 08/24/2013 Subclinical hypothyroidism 07/04/2013 Chronic constipation 05/14/2012 Tinnitus, right 05/25/2011 Abnormal Papanicolaou smear of cervix 12/11/2009 SOCIAL HISTORY: Social History Tobacco Use Smoking status: Never Passive exposure: Never Smokeless tobacco: Never Substance Use Topics Alcohol use: No FAMILY HISTORY: Family Status Relation Name Status Mother Alive dm, bp Father DM, bp, alcohol. Sister Alive MGM (Not Specified) MGF (Not Specified) PGM (Not Specified) PGF (Not Specified) Daughter Alive Daughter Alive Aunt paternal Alive Uncle Father's alana (Not Specified) Daughter Alive No partnership data on file Family History[1] ACTIVE MEDICATIONS: Medications Taking[2] ALLERGIES: Cortisone, Imitrex [sumatriptan succinate], Relpax [eletriptan], Trileptal [oxcarbazepine], and Venlafaxine PHYSICAL EXAM: Blood pressure 98/58, pulse 82, temperature 36.2 ??C (97.2 ??F), temperature source Temporal, resp.rate 14, height 1.511 m (59.5 ), weight 66.2 kg (146 lb), SpO2 98%. Body mass index is 28.99 kg/m??. Plan is deferred until next visit APPEARANCE: Alert and in no acute distress EYES: PERRLA, conjunctiva and sclera normal HEART: RRR with normal S1 and S2, no murmurs, no gallops, no JVD appreciated LUNG: clear to auscultation bilaterally BACK: no pain to palpation EXTREMITIES: Extremities warm and well perfused without clubbing, cyanosis, or edema NEURO: Awake, alert and oriented x 3 and Normal gait SKIN: small palpable subcutaneous lump, non tender, no overlying skin chnage LABS: IMPRESSION: 1. Migraine without aura and without status migrainosus, not intractable 2. Lump of skin of back ASSESSMENT/PLAN: Leisa was seen today for follow-up. Diagnoses and all orders for this visit: Migraine without aura and without status migrainosus, not intractable (Primary) - Basic metabolic panel; Future Lump of skin of back - US Chest; Future Other orders - celecoxib (CeleBREX) 200 mg capsule; Take 1 capsule (200 mg total) by mouth 2 (two) times a day for 8 days. Plan Migraine headaches-follows with neurology, previous relief with Botox injections. Patient follows with pain management at [facility], received Botox on 05/28, no significant relief. Taking Ubrelvy. Emgality stopped by neurology. Patient has been taking Tylenol which helps. I have given a prescription for celecoxib as patient has had relief with IM ketorolac in the past however we do not have the capability of giving the medication in office now. Check BMP Patient reports postmenopausal bleeding, reports was evaluated by her [employer]ER and underwent endometrialendometrial Biopsy which was normal according to patient. We will request records Patient reports that she felt a small lump on the left side of her lower back, nontender, has not changed in size. Obtain ultrasound of the back Follow up in about 4 months (around 10/05/2025) for Medication review. Orders Placed This Encounter Procedures US Chest Basic metabolic panel No results found for this or any previous visit (from the past 4 weeks). Idania De La Torre MD on 06/05/2025 at 10:37 AM EDT [1] Family History Problem Relation Name Age of [...] Thyroid disease Father's side father, grandmother, cousins [2] Outpatient Medications Marked as Taking for the 06/05/25 encounter (Office Visit) with Idania De La Torre MD Medication Sig Dispense Refill albuterol HFA (PROAIR [...] DAILY NEEDED FOR PAIN. 100 g 1 dicyclomine (BENTYL) 10 mg capsule Take 1 capsule (10 mg total) by mouth 4 (four) times a day (before meals and nightly). 360 each 3 docusate sodium (COLACE) 100 mg capsule TAKE 1 CAPSULE BY MOUTH TWICE A DAY Emgality Pen 120 mg/mL injection pen INJECT 1 SUBCUTANEOUS EVERY MONTH 30 DAYS estradioL (VIVELLE-DOT) 0.05 mg/24 hr APPLY 1 PATCH TWICE A WEEK BY TRANSDERMAL ROUTE FOR 84 DAYS. famotidine (PEPCID) 20 mg tablet Take 1 tablet (20 mg total) by mouth 1 (one) time each day. 90 tablet 1 fluticasone propionate (FLONASE) 50 mcg/actuation nasal spray SPRAY 2 SPRAYS BY NASAL ROUTE DAILY gabapentin (NEURONTIN) 300 mg capsule Take 1 Capsule by mouth 3 times daily. levocetirizine (XYZAL) 5 mg tablet Take 1 tablet (5 mg total) by mouth 1 (one) time each day. levothyroxine (SYNTHROID, LEVOTHROID) 50 mcg tablet TAKE 1 TABLET BY MOUTH EVERY DAY 90 tablet 1 loperamide (IMODIUM) 2 mg capsule TAKE 1 CAPSULE BY MOUTH 4 TIMES DAILY NEEDED FOR DIARRHEA. metoclopramide (REGLAN) 10 mg tablet TAKE 1 [...] MINS AND THEN EAT 180 tablet 3 plecanatide (TRULANCE) 3 mg tablet Take 1 Tablet by mouth daily. progesterone (PROMETRIUM) 100 mg capsule Take 1 capsule (100 mg total) by mouth 1 (one) time each day. for 90 days senna (SENOKOT) 8.6 mg tablet TAKE 1 TABLET BY MOUTH EVERY DAY tiZANidine (ZANAFLEX) 4 mg tablet triamcinolone (KENALOG) 0.1 % ointment Apply topically 2 (two) times a day if needed for irritationor rash. 60 g 1 ubrogepant (UBRELVY) 100 mg tablet Take by mouth daily as needed. [DISCONTINUED] diclofenac (VOLTAREN) 50 mg EC tablet TAKE 1 TABLET BY MOUTH TWICE A DAY documented in this encounter Plan of Treatment Upcoming Encounters Date Type Department Care Team (Late st Contact Info) Description 06/18/2025 9:15 AM EDT Appointment Radiology Department - [address] [phone] 01/29/2026 9:20 AM EDT Appointment Radiology Department - [address] [phone] 03/13/2026 9:30 AM EDT Office Visit [facility] - [place] [address] [place], [place] [phone] Idania De La Torre MD [address] [place], [place] 05/20/2026 9:20 AM EDT Office Visit Gastroenterology - [place] [address] [facility] [address] [facility] [address] [place] [phone] Valerie Barr NP [address] [facility] [address] [place] [address] Scheduled Orders Name Type Priority Associated Diagnoses Orde r Schedule Basic metabolic panel Lab Routine Migraine without aura and without status migrainosus, not intractable Expected: 06/05/2025, Expires: 12/03/2025 US Chest Imaging Routine Lump of skin of back Expected: 06/05/2025, Expires: 06/05/2026 documented as of this encounter Visit Diagnoses Diagnosis Migraine without aura and without status migrainosus, not intractable- Primary Lump of skin of back documented in this encounter Discontinued Medications Medication Sig Discontinue Reason Start Date End Da te medroxyPROGESTERone (PROVERA) 2.5 mg tablet Take 2.5 mg by mouth daily. 03/24/2021 06/05/2025 diclofenac (VOLTAREN) 50 mg EC tablet TAKE 1 TABLET BY MOUTH TWICE A DAY Alternate therapy 01/11/2024 06/05/2025 documented as of this encounter Historical Medications * This list may reflect changes made after this encounter. progesterone (PROMETRIUM) 100 mg capsule Take 1 capsule (100 mg total) by mouth 1 (one) time each day. for 90 days 05/21/2025 added in this encounter Additional Health Concerns Infection Onset Date Last Indicated Resolved Time ESBL 03/06/2025 03/06/2025 Assessment Noted Time PHQ-9 Depression Total Score: 18 06/04/ 025 3:18 PM EDT documented as of this encounter Care Teams Grey Goods Examiner Relationship Specialty Start Date End Date Idania De La Torre MD [address] [place] [address] PCP - General Internal Medicine 07/13/24 documented as of this encounter
--- NOTE | 2025-06-07 09:36 | MHC.AMNUTRGE ---
VS Expanded 06/07/25 09:40 06/20/25 08:38 Height 4 ft 11 in 4 ft 11 in Weight 145 lb 4.554 oz 145 lb BMI 29.3 29.3 Intake Visit Reasons: gastropsaresis Allergies oxcarbazepine (Trileptal) Allergy (Intermediate, Verified 05/28/25 11:08) hives sumatriptan (Imitrex) Allergy (Intermediate, Verified 05/28/25 11:08) increased heart rate venlafaxine Allergy (Intermediate, Verified 05/28/25 11:08) increased heart rate Cortisone Allergy (Intermediate, Uncoded 05/28/25 11:08) visual disturbance Relpax Allergy (Intermediate, Uncoded 05/28/25 11:08) throat swelling Nutrition Presentation Details: Pt presents for MNT for gastroparesis Pt reports concerns of weight gain and is choosing low carb food choices, most high in fiber Pt reports working on low carb diets, in the past tried keto diet and reports success in wt loss however not sustainable as a residential diet and with hx of gastroparesis food frequency fruits: 0-1/d ve-3/wk dairy: choosing low fat or alternative, 1-2/d fish : 0-1/wk fried foods: 0-1/wk desserts : daily beverages: water, juice, low sugar beverages physical activity: ADL etoh: -- Pt denies vomiting, diarrhea reports constipation is controlled via trulance ETP-Mtqybhu-Os.Jeor Equation Height: 4 ft 11 in Weight: 145 lb Resting Metabolic Rate: 1191.60 Calculated Activity Level: Sedentary Calories Needed to Maintain Weight: 1429.92 Diagnosis Nutrition problem #1: overweight/obesity As related to (etiology) #1: altered metabolism nutri As evidenced by (sign/symptom) #1: food recall [facility] Medical History (Updated 03/26/25 @ 10:30 by Renata Good CNP) Chronic tension type headache Migraine without aura Somatization disorder History of abnormal cervical Pap smear Anal fissure and fistula Fibromyalgia Surgical History Hx of tubal ligation H/O foot surgery Family History Father HTN (hypertension) Hypothyroid Diabetes Hyperlipidemia Mother HTN (hypertension) Diabetes Hyperlipidemia Social History Household Members: Children Housing: House Alcohol intake: never Patient Tobacco Use Status: Never used Tobacco Current occupational status: disabled Assessment & Plan Assessment & Plan (1) Gastroparesis: Code(s): K31.84 - Gastroparesis Category: Medical Plan: current wt: 66 kg ( 06/30 ) est kcal needs as per MSJ: 1400 est protein needs as per 1 g/kg BW: 60-70 est fluid needs as per 30 ml/kg BW: 2000 Recommended fiber > 12 g /day and gradually increase up to 25-28 g /day or as tolerated Nutrition topics discussed : Reviewed (R), Pt verbalized understanding (V) , not applicable (N/A) R, : Healthy Plate Method Concept: R, : Carbohydrates: food sources of carbohydrates, relationship of carbohydrates to blood glucose, fatty liver GI health. Recommended total amount of carbohydrates per meals and snack. Differences between simple carbohydrates and complex carbohydrates as its relationship to gastroparesis R, : Lean protein foods including vegan , vegetarian sources of protein. Benefits of protein (including but not limited to healing, nutritional value , benefits in weight loss, glucose control, choosing lower fat options and cooking methods low in fat as high fat food can exacerbate gastroparesis symptoms R, V, N/A: Fats : Source of fats, benefits of fats. Difference between saturated and unsaturated fats. Saturated fats and its contribution to inflammation R, V, N/A: Fiber: food sources and role of fiber in the diet (including but not limited to its role as a prebiotic, benefits in constipation, role in IBS , role in glucose control and cholesterol level) R, V, N/A: Hydration: role of hydration and prevention of dehydration or over hydration. Foods and water content. R, V, N/A: Vitamins and Minerals in foods and supplements R, V, N/A: Interpreting food labels, including serving size, macronutrients, vitamins, minerals, allergens, ingredient list , % daily value Patient Instructions: Choose lower fat food options and low fat cooking methods Caution with very high fiber foods that are low in carb, opt for food with 15 g carb and 3-4 g of fiber vs 8-12 g of fiber Drink water , low sugar beverages, warm milk, decaf tea keep physically active as much as possible Coding Level of Care Code Nutr Indiv Intake (13356) Diagnoses Gastroparesis K31.84 Time Spent (min) 30
[2025-06-07 09:40] VITALS: BMI 29.3
--- OUTSIDE RECORDS SUMMARY | 2025-06-07 10:16 | XMS_ITS | Clinical Summary ---
Author Organization [facility] Address [address] [place] [address] Phone Care Team Providers Care Dredge Boat Engineer Name Role Phone Idania De La Torre MD Primary Care Provider [phone] Allergies Active Allergy Reactions Criticality Noted Date [...] mouth every 8 hours as needed. Active docusate sodium (COLACE) 100 mg capsule [...] DAILY NEEDED FOR DIARRHEA. 03/08/20 24 Active ondansetron (ZOFRAN) 4 mg tablet Take [...] 360 each 3 05/14/20 25 026 Active progesterone (PROMETRIUM) 100 mg capsule Take 1 capsule (100 mg total) by mouth 1 (one) time each day. for 90 days 05/21/20 25 Active celecoxib (CeleBREX) 200 mg capsule Take 1 capsule (200 mg total) by mouth 2 (two) times a day for 8 days. 15 each 06/05/20 25 025 Active diclofenac (VOLTAREN) 50 mg EC tablet TAKE 1 TABLET BY MOUTH TWICE A DAY 01/11/20 24 025 Discontinued(A lternate therapy) medroxyPROGES TERone (PROVERA) 2.5 mg tablet Take 2.5 mg by mouth daily. 03/24/20 21 025 Discontinued dicyclomine (BENTYL) 10 mg capsule TAKE 1 CAPSULE BY MOUTH 4 TIMES DAILY (BEFORE MEALS AND NIGHTLY). 360 capsule 1 11/15/19 25 025 Discontinued(R eorder) diclofenac (VOLTAREN) 1 % topical gel APPLY TOPICALLY 2 TIMES DAILY NEEDED FOR PAIN. 100 g 04/10/20 25 025 Discontinued Active Problems Problem Noted Date Diagnosed Date Anxiety 06/08/2024 Bipolar depression ([facility] V24, [facility] V28) Esophageal reflux 06/08/2024 Fibromyalgia [...] Papanicolaou smear of cervix and cervical HPV [facility] IMO Update Fall 2015 Encounters Date Type Department Care Team Description 06/05/2025 10:00 AM EDT Office Visit Adult Medicine [address] [phone] Idania De La Torre MD Migraine without aura and without status migrainosus, not intractable (Primary Dx); Lump of skin of back 05/18/2025 11:00 AM EDT Office Visit Gastroenterology - [address] [facility] [address] [place] [phone] Valerie Barr, [place] Gastroparesis (Primary Dx); Gastroesophageal reflux disease without esophagitis; Chronic constipation 04/17/2025 2:00 PM EDT Office Visit Orthopedic Surgery - [address] [facility] [address] [place] [phone] Ignacio Alonzo, DPM Plantar fascial fibromatosis (Primary Dx); Arthritis of left ankle; Tendinitis of right ankle 04/10/2025 6:32 PM EDT - 04/10/2025 11:59 PM EDT Hospital Encounter Radiology Department - [address] [phone] Tremor, unspecified Discharge Disposition: Home or Self Care 03/12/2025 2:45 PM EDT Office Visit Orthopedic Surgery - [address] [facility] [address] [place] [phone] Ignacio Alonzo, DPM Plantar fascial fibromatosis (Primary Dx); Tendinitis of right ankle from Last 3 Months Immunizations Immunization Administration Dates Next Due Influenza Quadravalent, MDCK [...] Surgery Date Site/Laterality Comments BUNIONECTOMY 2001 PROCEDURE: WI CORRJ HLX VLGS BNCTY SESMDC W/DOUBLE OSTEOTOMY; COMMENT: right FLEXIBLE SIGMOIDOSCOPY 05/26/2011 PROCEDURE: HISTORICAL FLEXIBLE SIGMOIDOSCOPY; COMMENT: ext hemorrhoidal tags x 2 OTHER SURGICAL HISTORY 07/18/2013 PROCEDURE: NUCLEAR EXAM OF STOMACH EMPTYING; COMMENT: [facility] - delayed liquid and solid material gastric emptying suggesting gastroparesis. COLONOSCOPY 01/28/2016 PROCEDURE: HISTORICAL COLONOSCOPY; COMMENT: normal UPPER GASTROINTESTINAL ENDOSCOPY 08/25/2013 PROCEDURE: WI UPPER GI ENDOSCOPY PERFORMED; COMMENT: normal on omeprazole treatment. UPPER GASTROINTESTINAL ENDOSCOPY 11/11/2005 PROCEDURE: WI UPPER GI ENDOSCOPY PERFORMED; COMMENT: Dr Horner - normal OTHER SURGICAL HISTORY PROCEDURE: WI HEMORRHOID NTRNL & XTRNL 1 COLUMN W/FISSURECTO; COMMENT: [facility] - [place]. Petty COLONOSCOPY 09/25/2021 PROCEDURE: HISTORICAL COLONOSCOPY; COMMENT: normal ESOPHAGOGASTRODUODENOSCOPY 01/08/2022 PROCEDURE: WI EGD TRANSORAL BIOPSY SINGLE/MULTIPLE; COMMENT: EGD normal including biopsy TUBAL LIGATION 11/24/2018 PROCEDURE: HISTORICAL TUBAL LIGATION BUNIONECTOMY 2001 Right PROCEDURE: BUNION SURGERY, SIMPLE REMOVAL ANKLE SURGERY 06/2023 Left PROCEDURE: HISTORICAL ANKLE SURGERY; COMMENT: ligament repair Medical History Medical History Date Comments Historical Medical DX 12/11/2009 DX:Abnorma l Pap smear and cervical HPV (human papillomavirus); COMMENT: [facility] Anxiety DX:Anxiety; COMM ENT: followed by psychiatrist/ therapist in [place] Esophageal reflux DX:Esophageal reflux Bipolar depression ([facility]/HCC V24, CMS/HCC V28) DX:Bipolar depression ([facility]); COMMENT: per patient, no records from psychiatrist Migraine DX:Migraine Fibromyalgia DX:Fibromyalgia; COMMENT: [employer]ist Dr. Morel at [place] Fracture of wrist 1982 DX:Fracture of wrist; COMMENT: left Tinnitus, right 05/25/2011 DX:Tinnitus, rig ht Gastroparesis 07/18/2013 DX:Gastroparesis ; COMMENT: Gastric emptying study completed at [facility], followed by GI at [place] History of Papanicolaou smea r of cervix DX:History of Papanicolaou s mear of cervix; COMMENT: folowed by [facility] DRAWER IN [place], Bhavana Paulino Chronic headaches DX:Chronic hea daches; COMMENT: Followed by Dr. 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 Often 07/13/2024 Food Risk [...] care for your loved ones. For example, complex care nurse or elderly care for an older adult? [...] Mass Index 28.99 06/05/2025 9:55 AM EDT Plan of Treatment Upcoming Encounters Date Type Department Care Team (Late st Contact Info) Description 06/18/2025 9:15 AM EDT Appointment Radiology Department - [address] [phone] 01/29/2026 9:20 AM EDT Appointment Radiology Department - [address] [phone] 03/13/2026 9:30 AM EDT Office Visit Adult Medicine [place] - [address] [phone] Idania De La Torre MD [address] [place] [address] 05/20/2026 9:20 AM EDT Office Visit Gastroenterology - [address] [phone] Valerie Barr NP 175 [facility] [address] [place] [address] Health Maintenance Due Date Last Done Comments [...] Colorectal Cancer Screening: Colonoscopy 09/25/2031 09/25/2021, 09/25/2021 RSV Immunization Adult Patients (1 - 1-dose 75+ series) 2050 HIV Screening Completed 09/15/2013 Hepatitis C Screening Completed 09/15/2013 Depression Screening Completed 06/04/2025 HIB Vaccines Aged Out No longer eligi [...] MRI REPORT 04/07/2025 EXTERNAL MRI REPORT 04/07/2025 LIPID PANEL WITH REFLEX TO DIRECT LDL Routine 02/26/2025 9:39 AM EDT PE (physical exam), annual MG MAMMO DIGITAL SCREENING W OTONIEL BILAT Routine 01/24/2025 9:24 AM EDT Encounter for screening mammogram for breast cancer HM HPV Routine 04/06/2023 COLONOSCOPY Routine 09/25/2021 [...] Signed Date: 04/12/2025 15:42 ET Workstation ID: [id number] Transcribed By: Self Edit Transcribed Date: 04/11/2025 [...] Signed Date: 04/12/2025 15:42 ET Workstation ID: [id number] Transcribed By: Self Edit Transcribed Date: 04/11/2025 16:46 ET Renata Good NP [facility] [place] PROCEDURES Final Result * External MRI Report (04/07/2025) Only the most recent of2 resultswithin the time period is included. Anatomical Region Laterality Modality Magnetic Resonan ce Provider [employer] [facility] [place] PROCEDURES Final Result * (ABNORMAL) Lipid panel with reflex to direct LDL (02/26/2025 9:39 AM EDT) Cholesterol 212(H) 0 - 200 mg/dL LAB CHEMISTRY METHOD 02/26/2025 8:58 PM EDT [facility] Triglycerides 65 0 - 150 mg/dL LAB CHEMISTRY METHOD 02/26/2025 8:58 PM EDT [facility] HDL 59 >=40 mg/dL LAB CHEMISTRY METHOD 02/26/2025 8:58 PM EDT [facility] LDL Calculated 140(H) 0 - 100 mg/dL LAB CHEMISTRY METHOD 02/26/2025 8:58 PM EDT [facility] VLDL Cholesterol Polo 13 mg/dL LAB CHEMISTRY METHOD 02/26/2025 8:58 PM EDT [facility] Non HDL Chol. (LDL+VLDL) 153(H) <145 mg/dL LAB CHEMISTRY METHOD 02/26/2025 8:58 PM EDT [facility] Chol/HDL Ratio 3.6 0.0 - 4.4 LAB CHEMISTRY METHOD 02/26/2025 8:58 PM EDT [facility] Blood Venous blood specimen / Unknown Venipuncture / Unknown 02/26/2025 9:39 AM EDT 02/26/2025 9:39 AM EDT us Idania De La Torre MD LAB BLOOD ORDERABLES Final Resul t [facility] [address] [place] [address], [place] [phone] * MG Mammo Digital Screening w Otoniel [...] is recommended in 1 year. Mammo Location: [facility], [address] [place] [address], [address], . -------- FINAL REPORT -------- Dictated By: Ananth Miramontes Dictated Date: 01/24/2025 11:29 ET Assigned Physician: Ananth Miramontes Reviewed and Electronically Signed By: Ananth Miramontes Signed Date: 01/24/2025 11:37 ET Workstation ID: [id number] Transcribed By: Self Edit Transcribed Date: 01/24/2025 [...] is recommended in 1 year. Mammo Location: [facility], [address] [place] [address], [address], . -------- FINAL REPORT -------- Dictated By: Ananth Miramontes Dictated Date: 01/24/2025 11:29 ET Assigned Physician: Ananth Miramontes Reviewed and Electronically Signed By: Ananth Miramontes Signed Date: 01/24/2025 11:37 ET Workstation ID: [id number] Transcribed By: Self Edit Transcribed Date: 01/24/2025 11:29 ET Idania De La Torre MD IMG BI PROCEDURES Final Result * Cervical Cancer Screening: HPV (04/06/2023) [facility] Cervical Cancer Screening: HPV no interpreta tion,abstr acted Historical Provider HEALTH MAINTENANCE Final Result * Colonoscopy (09/25/2021) [facility] Colonoscopy no interpreta tion,abstr acted Anatomical Region Laterality Modality Other [facility] Provider HEALTH MAINTENANCE Final Result * HIV Screening (09/15/2013) [facility] HIV Screening abstracted Historical Provider HEALTH MAINTENANCE Final Result * Hepatitis C Screening (09/15/2013) [facility] Hepatitis C Screening abstracted Historical Provider HEALTH MAINTENANCE Final Result from Last 3 Months or Most Recently Relevant to Health Maintenance Additional Health Concerns Infection Onset Date Last Indicated ESBL 03/06/2025 03/06/[address] [facility] Member Subscriber Plan / Payer (Ef fective 2022-Present) Name:ARSENIO SHORT Relation to Subscriber:Self Name:Jose Bryant Arsenio Payer ID:[id number] Group ID:[id number] Type:Not on file Address: [facility] [place] [address] Care Teams Dredge Boat Engineer Relationship Specialty Start Date End Date Idania De La Torre MD [address] [place] [address] PCP - General Internal Medicine 07/13/24
[2025-06-20 08:38] VITALS: BMI 29.3
== END 2025-06-07 10:19 | disposition home or self-care (01) ==
LOC: HO.ENCR 09:19
PROVIDERS: PCP Internal Medicine; Visit Provider Dietitian, Registered
DX: K31.84 Gastroparesis (principal)

== ENCOUNTER → 2025-06-07 09:18 | Outpatient (BNVA) | payer OTHER, SELFPAY | PROVIDERS: PCP Internal Medicine; Visit Provider Dietitian, Registered | DX: K31.84 Gastroparesis (principal) | CPT/HCPCS: 97802 ==

== ENCOUNTER 2025-08-14 09:50 | Outpatient (AMB) | payer OTHER, SELFPAY ==
--- NOTE | 2025-08-14 10:11 | MHC.AMNUTRGE ---
VS Expanded 08/14/25 12:31 Height 4 ft 11 in Weight 147 lb 2.5 oz BMI 29.7 Intake Visit Reasons: gastroparesis Allergies oxcarbazepine (Trileptal) Allergy (Intermediate, Verified 05/28/25 11:08) hives sumatriptan (Imitrex) Allergy (Intermediate, Verified 05/28/25 11:08) increased heart rate venlafaxine Allergy (Intermediate, Verified 05/28/25 11:08) increased heart rate Cortisone Allergy (Intermediate, Uncoded 05/28/25 11:08) visual disturbance Relpax Allergy (Intermediate, Uncoded 05/28/25 11:08) throat swelling Nutrition Presentation Details: Pt presents for MNT for gastroparesis Pt reports working on participating in physical activity, doing weight resistance 3 times a week (45 min) Working on mindful eating, and reading food labels choosing foods with low sugar and less of fiber related to gastroparesis Fluid intake: And needs to reduce fluid intake, 16-24 oz per day PFSH Medical History (Updated 03/26/25 @ 10:30 by Renata Good CNP) Chronic tension type headache Migraine without aura Somatization disorder History of abnormal cervical Pap smear Anal fissure and fistula Fibromyalgia Surgical History Hx of tubal ligation H/O foot surgery Family History Father HTN (hypertension) Hypothyroid Diabetes Hyperlipidemia Mother HTN (hypertension) Diabetes Hyperlipidemia Social History Household Members: Children Housing: House Alcohol intake: never Patient Tobacco Use Status: Never used Tobacco Current occupational status: disabled Assessment & Plan Assessment & Plan (1) Gastroparesis: Code(s): K31.84 - Gastroparesis Category: Medical Plan: current wt: 66 kg ( 06/30 ), 66.8 (August 2025) est kcal needs as per MSJ: 1400 est protein needs as per 1 g/kg BW: 60-70 est fluid needs as per 30 ml/kg BW: 2000 Recommended fiber > 12 g /day and gradually increase up to 20 g /day or as tolerated (depending on tolerance related to gastroparesis) Nutrition topics discussed : Reviewed (R), Pt verbalized understanding (V) , not applicable (N/A) R, : Healthy Plate Method Concept: R, : Carbohydrates: food sources of carbohydrates, relationship of carbohydrates to blood glucose, fatty liver GI health. Recommended total amount of carbohydrates per meals and snack. Differences between simple carbohydrates and complex carbohydrates as its relationship to gastroparesis R, : Lean protein foods including vegan , vegetarian sources of protein. Benefits of protein (including but not limited to healing, nutritional value , benefits in weight loss, glucose control, choosing lower fat options and cooking methods low in fat as high fat food can exacerbate gastroparesis symptoms R, : Fats : Source of fats, benefits of fats. Difference between saturated and unsaturated fats. Saturated fats and its contribution to inflammation R, V, N/A: Fiber: food sources and role of fiber in the diet (including but not limited to its role as a prebiotic, benefits in constipation, role in IBS , role in glucose control and cholesterol level) R, V, N/A: Hydration: role of hydration and prevention of dehydration or over hydration. Foods and water content. R, V, N/A: Vitamins and Minerals in foods and supplements R, V, N/A: Interpreting food labels, including serving size, macronutrients, vitamins, minerals, allergens, ingredient list , % daily value Patient Instructions: Work on having small portion, particularly reducing foods higher in fat and sugars (pastries, desserts types of foods Keep hydrated, work on having 6-8 oz of water and her or low sugar beverages with meals and snacks Coding Level of Care Code Nutr Indiv Subseq (42700) Diagnoses Gastroparesis K31.84 Time Spent (min) 30
[2025-08-14 12:31] VITALS: BMI 29.7
== END 2025-08-14 10:28 | disposition home or self-care (01) ==
LOC: HO.ENCR 09:51
PROVIDERS: PCP Internal Medicine; Visit Provider Dietitian, Registered
DX: K31.84 Gastroparesis (principal)

== ENCOUNTER → 2025-08-14 09:50 | Outpatient (BNVA) | payer OTHER, SELFPAY | PROVIDERS: PCP Internal Medicine; Visit Provider Dietitian, Registered | DX: K31.84 Gastroparesis (principal); Z71.3 Dietary counseling and surveillance | CPT/HCPCS: 97803 ==

== ENCOUNTER 2025-08-23 09:21 | Outpatient (AMB) | payer OTHER, SELFPAY ==
--- NOTE | 2025-08-23 09:49 | A.OFFVIS_ITS ---
Vital Signs 08/23/25 09:58 Height 4 ft 11 in Weight 152 lb 5.431 oz BMI 30.8 BP 115/64 Blood Pressure Location Lt brachial Position Sitting Pulse 75 Pulse Source Pulse Oximeter Pulse Oximetry (%) 99 Oxygen Delivery Method Room Air Intake Visit Reasons: follow up Intake Note: Patient presents today for FM and Subacromial bursitis of left shoulder joint follow up. Leasing Associate Required: No Information Interpreted: non-clinical & clinical Accompanied by: Self / Same As Patient Allergies oxcarbazepine (Trileptal) Allergy (Intermediate, Verified 08/23/25 09:55) hives sumatriptan (Imitrex) Allergy (Intermediate, Verified 08/23/25 09:55) increased heart rate venlafaxine Allergy (Intermediate, Verified 08/23/25 09:55) increased heart rate Cortisone Allergy (Intermediate, Uncoded 05/28/25 11:08) visual disturbance Relpax Allergy (Intermediate, Uncoded 05/28/25 11:08) throat swelling Medication List - Last Reconciled 08/23/25 by Leatha Pa MD albuterol sulfate 90 mcg/actuation 2 puffs inhalation Q4H PRN bupropion HCl XL (Wellbutrin XL) 300 mg PO QAM bupropion HCl XL 150 mg PO QAM cetirizine 10 mg PO DAILY cholecalciferol (vitamin D3) 50 mcg PO DAILY diazepam 5 mg PO BID PRN diclofenac sodium 50 mg PO BID diclofenac sodium 1% topical dicyclomine 10 mg PO BID docusate sodium 100 mg PO BID estradiol 1 patch transdermal 2XW famotidine (Pepcid) 20 mg PO BEDTIME PRN fluticasone propionate 50 mcg/actuation 2 sprays intranasal DAILY PRN gabapentin 300 mg PO TID levothyroxine 50 mcg PO DAILY magnesium glycinate 100 mg PO TID metoclopramide HCl 10 mg PO TID PRN naltrexone 4.5 mg PO .nightly onabotulinumtoxinA (Botox) 200 units intradermal [id number] ondansetron HCl 4 mg PO Q8H PRN pantoprazole 20 mg PO BID plecanatide (Trulance) 3 mg PO DAILY progesterone micronized 100 mg PO QAM terbinafine HCl 250 mg PO DAILY tizanidine 4 mg PO BEDTIME PRN ubrogepant (Ubrelvy) mg PO HPI Comments Details: Patient is a 49 y.o. female with bipolar disorder/depression, anxiety, migraines, GERD, HLD, and fibromyalgia here today for follow up Interval History: Patient last seen 02/27/25 with me. - On gabapentin 300mg tid and tizanidine 4mg bedtime prn - Urgent visit for left shoulder injection, toradol Today - On gabapentin 300mg tid and tizanidine 4mg bedtime prn - Toradol injection helped with her shoulder pain - Still with generalized body pain and aches - Also with whole body stiffness - Has been seeing neurology for worsening migraines, currently getting botox in jections, has not gotten much relief but the migraines make her fibromyalgia worse - gabapentin helps but makes her sleepy - still complaining of gastroparesis - also with tremors that neurology has said are anxiety induced - has 2 blisters in the eyeball, seeing ophthal for this Rheumatologic History: Fibromyalgia Left ankle s/p tendon repair Current Rheumatology Medication(s): Gabapentin 300 tid Tizanidine 4mg bedtime prn [facility] Medical History (Updated 03/26/25 @ 10:30 by Renata Good, LINDSAY) Chronic tension type headache Migraine without aura Somatization disorder History of abnormal cervical Pap smear Anal fissure and fistula Fibromyalgia Surgical History Hx of tubal ligation H/O foot surgery Family History Father HTN (hypertension) Hypothyroid Diabetes Hyperlipidemia Mother HTN (hypertension) Diabetes Hyperlipidemia Social History Household Members: Children Housing: House Alcohol intake: never Patient Tobacco Use Status: Never used Tobacco Current occupational status: disabled Review of Systems Narrative Review of Systems As above All other systems reviewed and are unremarkable except noted above Physical Exam Exam Exam: Vital signs reviewed Physical Examination CONSTITUITIONAL Patient alert and cooperative. Well appearing and in no apparent painful distress MSK Hands * Right Hand: Able to make a fist. No swelling or tenderness to palpation of the MCPs, PIPs or DIPs. No deformities noted. * Left Hand: Able to make a fist. No swelling or tenderness to palpation of the MCPs, PIPs or DIPs. No deformities noted. Wrists * Right Wrist: Full ROM to flexion and extension. No swelling or TTP * Left Wrist: Full ROM to flexion and extension. No swelling or TTP Elbows * Right Elbow: Full ROM. No swelling or TTP. No TTP of the medial epicondyle. No TTP of the lateral epicondyle * Left Elbow: Full ROM. No swelling or TTP. No TTP of the medial epicondyle. No TTP of the lateral epicondyle Shoulders * Right shoulder: Full ROM. No swelling noted. No TTP of the AC joint. No TTP of the subacromial bursa. No TTP of the posterior shoulder * Left shoulder: Full ROM. No swelling noted. No TTP of the AC joint. No TTP of the subacromial bursa. No TTP of the posterior shoulder Knees * Right knee: Full ROM. No swelling noted. No TTP of the knee joint line. TTP of pes anserine bursa * Left knee: Full ROM. No swelling noted. No TTP of the knee joint line. TTP of pes anserine bursa. Ankles * Right ankle: Good ankle dorsiflexion and plantar flexion. No swelling. No TTP of the ankle joint * Left ankle: Good ankle dorsiflexion and plantar flexion. No swelling. No TTP of the ankle joint Feet * Right foot: Negative squeeze test * Left foot: Negative squeeze test Tender points? * Tenderness to palpation of the bilateral trapezius, supraspinatus, anterior costochondral junctions, bilateral suboccipital muscle insertions Vital Signs: Last Vital Signs Pulse 75 08/23/25 09:58 BP 115/64 08/23/25 09:58 Pulse Ox 99 08/23/25 09:58 Oxygen Delivery Method Room Air 08/23/25 09:58 BMI result Body Mass Index 30.8 Results Reviewed Results Reviewed: MR L Shoulder 04/2025 Findings: Normal alignment without acute fracture or marrow infiltration. No joint effusion. No evidence of subacromial/subdeltoid bursitis. Partial glenohumeral cartilage thinning. Iqpi-jk-lsazaluy AC osteoarthritis. Relatively mild distal clavicle hypertrophic changes causes bruo-nn-ktnompse compression effect on the opposing supraspinatus. Correlate clinically for possible subacromial impingement. Mild supraspinatus and subscapularis tendinosis. No rotator cuff tear. Few fatty streaks in the supraspinatus muscle and less than 50% fatty infiltration of the subscapularis and infraspinatus muscles. Unremarkable labrum and biceps tendons. Visualized ligaments are unremarkable. s tendons. Visualized ligaments are unremarkable. Glenoid labrum is intact. IMPRESSION: Partial glenohumeral cartilage thinning. Asqb-pf-nckhlkjn AC osteoarthritis. Relatively mild distal clavicle hypertrophic changes causes dylk-[id number]-xkobkypu compression effect on the opposing supraspinatus. Correlate clinically for possible subacromial impingement. Mild supraspinatus and subscapularis tendinosis. No rotator cuff tear. Assessment & Plan Assessment & Plan (1) Fibromyalgia: Comment: Previous serology in 2017 with normal inflammatory markers, normal complements, negative rheumatoid factor, negative CCP, negative BRINDA, negative double-stranded DNA. Cardiolipin antibodies negative. BASILIA positive 1:80. Code(s): M79.7 - Fibromyalgia Category: Medical Plan: #Fibromylagia Patient is a 49 y.o. female with fibromyalgia here today for follow up. Still with whole body pain complaints Will try adding naltrexone 4.5mg daily Plan - Gabapentin 300mg tid - Tizanidine 4mg nightly - Naltrexone 4.5mg nightly - RTC 6 months (2) Subacromial bursitis of left shoulder joint: Code(s): M75.52 - Bursitis of left shoulder Plan: #Left subacromial bursitis Improved after toradol injection 04/2025 Plan I spent 30 minutes reviewing the record and labs, taking a history, examining the patient, discussing the treatment plan, ordering diagnostic work up and documenting in the medical record Medications: New naltrexone 4.5 mg PO .nightly 90 caps 1RF M79.7 - Fibromyalgia Refilled tizanidine 4 mg PO BEDTIME PRN 90 tabs 1RF for muscle spasm M79.7 - Fibromyalgia gabapentin 300 mg PO TID 270 caps 1RF M79.7 - Fibromyalgia Coding Level of Care Code Est Pt Level 3 (02750) Add On Problem Visit Only Diagnoses Fibromyalgia M79.7 Subacromial bursitis of left shoulder joint M75.52
[2025-08-23 09:58] VITALS: BP 115/64; PULSE 75; O2SAT 99; BMI 30.8
--- OUTSIDE RECORDS SUMMARY | 2025-08-23 10:44 | XMS_ITS | Encounter Summary ---
Author Organization [employer] Address [address] [place] [address] Care Team Providers Care Environmental Planner Name Role Phone Idania De La Torre MD Primary Care Provider [phone] Encounter Details Date Type Department Care Team ([facility] Contact Info) Description 07/26/2025 Results Follow-Up Adult Medicine [address] [phone] Idania De La Torre MD [address] [place] [address] Social History Tobacco Use Types Packs/Day Years [...] for your loved ones. For example, child life specialist or elderly care for an older [...] on file documented as of this encounter Plan of Treatment Upcoming Encounters Date Type Department Care Team (Late st Contact Info) Description 11/13/2025 9:30 AM EDT Office Visit Orthopedic Surgery - [place] [address] [address] Ignacio Alonzo, DPM 175 [facility] [address] [place] [address] 01/29/2026 9:20 AM EDT Appointment Radiology Department [address] [phone] 03/13/2026 9:30 AM EDT Office Visit Adult Medicine [address] [phone] Idania De La Torre MD [address] [place] [address] 05/20/2026 9:20 AM EDT Office Visit Gastroenterology - [address] [place] [address] Valerie Barr, [place] [address] [address] documented as of this encounter Visit Diagnoses Not on filedocumented in this encounter Additional Health Concerns Infection Onset Date Last Indicated Resolved Time ESBL 03/06/2025 03/06/2025 Assessment Noted Time PHQ-9 Depression Total Score: 18 06/04/ 025 3:18 PM EDT documented as of this encounter Care Teams Environmental Planner Relationship Specialty Start Date End Date Idania De La Torre MD [address] [place] [address] PCP - General Internal Medicine 07/13/24 documented as of this encounter
--- OUTSIDE RECORDS SUMMARY | 2025-08-23 10:44 | XMS_ITS | Clinical Summary ---
Author Organization [facility] Address [address] [place] [address] Phone Care Team Providers Care Philosophy Instructor Name Role Phone Idania De La Torre MD Primary Care Provider [phone] Allergies Active Allergy Reactions Criticality Noted Date [...] 24 hr tablet 450 mg. 1 Active cholecalcifero l (VITAMIN D-3) 50 mcg (2,000 unit) tablet [...] TRANSDERMAL ROUTE FOR 84 DAYS. 1 Active fluticasone propionate (FLONASE) 50 mcg/actuation nasal spray SPRAY 2 SPRAYS BY NASAL ROUTE DAILY 3 Active gabapentin (NEURONTIN) 300 mg capsule Take 1 Capsule by mouth 3 times daily. 3 Active loperamide (IMODIUM) 2 mg capsule TAKE 1 CAPSULE BY MOUTH 4 TIMES DAILY NEEDED FOR DIARRHEA. 4 Active ondansetron (ZOFRAN) 4 mg tablet Take 1 Tablet by mouth every 8 hours as needed for Nausea. 3 Active plecanatide (TRULANCE) 3 mg tablet Take 1 Tablet by mouth daily. Active Emgality Pen 120 mg/mL injection pen INJECT 1 SUBCUTANEOUS EVERY MONTH 30 DAYS 5 Active levocetirizine (XYZAL) 5 mg tablet Take 1 tablet (5 mg total) by mouth 1 (one) time each day. 5 Active tiZANidine (ZANAFLEX) 4 mg tablet 5 Active MAGNESIUM GLYCINATE ORAL Take 400 mg by mouth at bedtime. Active multivitamin with minerals tablet Take 1 tablet by mouth 1 (one) time each day. Active phenazopyridin e (PYRIDIUM) 100 mg tablet Take 1 tablet (100 mg total) by mouth 3 (three) times a day with meals. 5 Active levothyroxine (SYNTHROID, LEVOTHROID) 50 mcg tablet TAKE 1 TABLET BY MOUTH EVERY DAY 90 tablet 1 5 Active pantoprazole (PROTONIX) 20 mg EC tablet TAKE 1 TAB 2 TIMES DAILY BEFORE BREAKFAST & DINNER ON EMPTY STOMACH, WAIT 30 MINS AND THEN EAT 180 tablet 3 5 Active famotidine (PEPCID) 20 mg tablet Take 1 tablet (20 mg total) by mouth 1 (one) time each day. 90 tablet 1 5 Active dicyclomine (BENTYL) 10 mg capsule Take 1 capsule (10 mg total) by mouth 4 (four) times a day (before meals and nightly). 360 each 3 5 026 Active progesterone (PROMETRIUM) 100 mg capsule Take 1 capsule (100 mg total) by mouth 1 (one) time each day. for 90 days 5 Active metoclopramide (REGLAN) 10 mg tablet TAKE 1 TABLET BY MOUTH 3 TIMES A DAY NEEDED FOR VOMITING 90 tablet 1 5 Active diclofenac (VOLTAREN) 1 % topical gel APPLY TOPICALLY 2 TIMES DAILY NEEDED FOR PAIN. 100 g 1 5 Active senna (SENOKOT) 8.6 mg tablet Take 1 tablet (8.6 mg total) by mouth 1 (one) time each day. TAKE 1 TABLET BY MOUTH EVERY DAY 90 each 3 5 026 Active terbinafine (LamISIL) 250 mg tablet Take 1 tablet (250 mg total) by mouth 1 (one) time each day. 30 tablet 2 5 026 Active terbinafine (LamISIL) 250 mg tablet Take 1 Tablet by mouth daily for 90 days 025 Discontin ued(Expir ed) Active Problems Problem Noted Date Diagnosed Date Anxiety 06/08/2024 Bipolar depression 06/08/2024 Esophageal reflux 06/08/2024 Fibromyalgia 06/08/2024 Migraine 06/08/2024 Ganglion cyst of left foot 08/19/2022 Hyperlipidemia 09/25/2021 Overview (06/08/2024): 09/27 - ASCVD score .5% Neck pain 10/31/2020 Chronic insomnia 11/01/2017 Overview (06/08/2024): 10/2017 Diagnostic Sleep Study did not reveal sleep apnea. Erythromelalgia 09/13/2017 Chest pain 05/27/2014 Overview (06/08/2024): Juliana [...] Papanicolaou smear of cervix and cervical HPV [facility] IMO Update Fall 2015 Encounters Date Type Department Care Team Description 08/13/2025 9:30 AM EST Office Visit Orthopedic Surgery - [address] [address] Ignacio Alonzo, DPM Dermatophytosis of nail (Primary Dx); Tinea pedis of left foot 07/26/2025 8:45 AM EST Lab Draw Station - [address] Migraine without aura and without status migrainosus, not intractable 07/26/2025 Results Follow-Up Adult Medicine [place] - [address] [phone] Idania De La Torre MD 06/19/2025 Results Follow-Up Adult Medicine [address] [phone] Idania De La Torre MD 06/18/2025 8:53 AM EDT - 06/18/2025 11:59 PM EDT Hospital Encounter Radiology Department - [address] [phone] Lump of skin of back Discharge Disposition: Home or Self Care 06/07/2025 Telephone Adult Medicine [address] [phone] Idania De La Torre MD 06/05/2025 10:00 AM EDT Office Visit Adult [address] [phone] Idania De La Torre MD Migraine without aura and without status migrainosus, not intractable (Primary Dx); Lump of skin of back from Last 3 Months Immunizations Immunization Administration [...] Surgery Date Site/Laterality Comments BUNIONECTOMY 2001 PROCEDURE: TX CORRJ HLX VLGS BNCTY SESMDC W/DOUBLE OSTEOTOMY; COMMENT: right FLEXIBLE SIGMOIDOSCOPY 05/26/2011 PROCEDURE: HISTORICAL FLEXIBLE SIGMOIDOSCOPY; COMMENT: ext hemorrhoidal tags x 2 OTHER SURGICAL HISTORY 07/18/2013 PROCEDURE: NUCLEAR EXAM OF STOMACH EMPTYING; COMMENT: [facility] - delayed liquid and solid material gastric emptying suggesting gastroparesis. COLONOSCOPY 01/28/2016 PROCEDURE: HISTORICAL COLONOSCOPY; COMMENT: normal UPPER GASTROINTESTINAL ENDOSCOPY 08/25/2013 PROCEDURE: TX UPPER GI ENDOSCOPY PERFORMED; COMMENT: normal on omeprazole treatment. UPPER GASTROINTESTINAL ENDOSCOPY 11/11/2005 PROCEDURE: TX UPPER GI ENDOSCOPY PERFORMED; COMMENT: Dr Horner - normal OTHER SURGICAL HISTORY PROCEDURE: TX HEMORRHOID NTRNL & XTRNL 1 COLUMN W/FISSURECTO; COMMENT: [facility] [place] COLONOSCOPY 09/25/2021 PROCEDURE: HISTORICAL COLONOSCOPY; COMMENT: normal ESOPHAGOGASTRODUODENOSCOPY 01/08/2022 PROCEDURE: TX EGD TRANSORAL BIOPSY SINGLE/MULTIPLE; COMMENT: EGD normal including biopsy TUBAL LIGATION 11/24/2018 PROCEDURE: HISTORICAL TUBAL LIGATION BUNIONECTOMY 2001 Right PROCEDURE: BUNION SURGERY, SIMPLE REMOVAL ANKLE SURGERY 06/2023 Left PROCEDURE: HISTORICAL ANKLE SURGERY; COMMENT: ligament repair Medical History Medical History Date Comments Historical Medical DX 12/11/2009 DX:Abnorma l Pap smear and cervical HPV (human papillomavirus); COMMENT: [facility] Anxiety DX:Anxiety; COMM ENT: followed by psychiatrist/ therapist in [place] Esophageal reflux DX:Esophageal reflux Bipolar depression (CMS/HCC V24, CMS/HCC V28) DX:Bipolar depression (HCC); COMMENT: per patient, no records from psychiatrist Migraine DX:Migraine Fibromyalgia DX:Fibromyalgia; COMMENT: 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 Morel at [place] Fracture of wrist 1982 DX:Fracture of wrist; COMMENT: left Tinnitus, right 05/25/2011 DX:Tinnitus, rig ht Gastroparesis 07/18/2013 DX:Gastroparesis ; COMMENT: Gastric emptying study completed at [facility], [place] History of Papanicolaou smea r of cervix DX:History of Papanicolaou s mear of cervix; COMMENT: folowed by [facility] LABORATORY INSPECTOR, Bhavana Paulino Chronic headaches DX:Chronic hea daches; COMMENT: Followed by Dr. Yanez, tried Botox treatments Foot pain DX:Foot pain; CO MMENT: soaker Dr. Alonzo Fibromyalgia DX:Fibromyalgia Gastroparesis DX:Gastroparesis Cervical [...] care for your loved ones. For example, children's program coordinator or elderly care for an older adult? [...] AM EDT Office Visit Orthopedic Surgery - [place] 250 175 [facility] 250 [place] [phone] Ignacio Alonzo, DPM [address] [phone] 01/29/2026 9:20 AM EDT Appointment Radiology Department - [address] [phone] 03/13/2026 9:30 AM EDT Office Visit Adult Medicine [place] - [address] [phone] Idania De La Torre MD [address] [place] [address] 05/20/2026 9:20 AM EDT Office Visit Gastroenterology - [address] 299 [facility] [address] [place] [address] Valerie Barr, [place] [address] [address] Health Maintenance Due Date Last Done Comments Drug Screen 1975 Non-Opioid Controlled Substance Agreement 1975 Hepatitis B Vaccines (1 of 3 - 19+ 3-dose series) 1994 Medicare Annual Wellness Visit 08/15/2022 COVID-19 Vaccine (3 - 2024- season) 2025 06/18/2021, 05/28/2021 Influenza Vaccine (#1) 2025 , 07/02/2021, 06/21/2020, Additional history exists Social Influencers of Health Screening 07/13/2025 07/13/2024 Pneumococcal Vaccine: 50+ Years (1 of 1 - PCV) 2025 Zoster Vaccines (1 of 2) 2025 DTaP,Tdap,and Td Vaccines (3 - Td or Tdap) 10/20/2025 10/20/2015, 07/21/2013 Breast Cancer Screening 01/24/2026 01/25/20, 07/20/2024, 01/18/2024, Additional history exists Cervical [...] Procedure Name Priority Date/Time Associated Diagnosis Comments BASIC METABOLIC PANEL Routine 07/26/2025 8:45 AM EST Migraine without aura and without status migrainosus, not intractable US ABDOMEN LIMITED Routine 06/18/2025 9: 08 AM EDT Lump of skin of back LIPID PANEL WITH REFLEX TO DIRECT LDL Routine 02/26/2025 9:39 AM EDT PE (physical exam), annual MG MAMMO DIGITAL SCREENING W OTONIEL BILAT Routine 01/24/2025 9:24 AM EDT Encounter for screening mammogram for breast cancer HPV Routine 04/06/2023 COLONOSCOPY Routine 09/25/2021 HEPATITIS C SCREENING Routine 09/15/2013 HIV SCREENING Routine 09/15/2013 from Last 3 Months or Most Recently Relevant to Health Maintenance Results * Basic metabolic panel (07/26/2025 8:45 AM EST) Sodium 139 133 - 145 mmol/L 07/26/2025 11:56 AM [facility] Potassium 4.5 3.5 - 5.5 mmol/L 07/26/2025 11:56 AM [facility] Chloride 102 96 - 110 mmol/L 07/26/2025 11:56 AM [facility] CO2 28 21 - 32 mmol/L 07/26/2025 11:56 AM [facility] Anion Gap 9 3 - 11 07/26/2025 11:56 AM [facility] Glucose 88 70 - 100 mg/dL 07/26/2025 11:56 AM [facility] BUN 18 5 - 25 mg/dL 07/26/2025 11:56 AM [facility] Creatinine 0.82 0.50 - 1.10 mg/dL 07/26/2025 11:56 AM [facility] eGFR 87 >=60 mL/min/1. 73m2 07/26/2025 11:56 AM [facility] Comment:Calculation based on the Chronic Kidney Disease Epidemiology Collaboration (CKD-EPI) equation refit without adjustment for race. BUN/Creatinine Ratio 22.0 07/26/2025 11:56 AM EST [facility] Calcium 9.2 8.5 - 10.5 mg/dL 07/26/2025 11:56 AM EST [facility] Blood Venous blood specimen / Unknown Venipuncture / Unknown 07/26/2025 8:45 AM EST 07/26/2025 8:45 AM EST us Idania De La Torre MD LAB BLOOD ORDERABLES Final Resul t [facility] [address] [place] [address], [place] [phone] * US Abdomen Limited (06/18/2025 9:08 AM EDT) Anatomical Region Laterality Modality Body Ultrasound 06/18/2025 9:48 AM EDT Impressions 06/18/2025 9:52 AM EDT Area of clinical concern corresponds to a lipoma -------- FINAL REPORT -------- Dictated By: Nitza Anaya Dictated Date: 06/18/2025 09:48 ET Assigned Physician: Nitza Anaya Reviewed and Electronically Signed By: Nitza Anaya Signed Date: 06/18/2025 09:52 ET Workstation ID: [id number] Transcribed By: Self Edit Transcribed Date: 06/18/2025 09:48 ET Narrative 06/18/2025 9:52 AM EDT EXAMINATION: US ABDOMEN LIMITED 06/18/2025 9:08 AM Patient : 1975 CLINICAL DATA/INDICATIONS: left flank small lump COMPARISON: CT abdomen and pelvis from 05/24/2023, ultrasound abdomen from 11/23/2018 TECHNIQUE: Multiple grayscale images of the subcutaneous soft tissues of the mid left back were obtained in area of palpable concern. Limited color Doppler flow FINDINGS: There is an ovoid hypoechoic mass measuring 2.1 x 2.0 x 0.7 cm without vascularity which most likely represents lipoma. Previously, this measured 2.3 x 1.4 x 0.9 cm Procedure Note Nitza Anaya MD - 06/18/2025 EXAMINATION: US ABDOMEN LIMITED 06/18/2025 9:08 AM Patient :1975 CLINICAL DATA/INDICATIONS: left flank small lump COMPARISON: CT abdomen and pelvis from 05/24/2023, ultrasound abdomen from11/23/2018 TECHNIQUE: Multiple grayscale images of the subcutaneous soft tissues ofthe mid left back were obtained in area of palpable concern. Limited colorDoppler flow FINDINGS: There is an ovoid hypoechoic mass measuring 2.1 x 2.0 x 0.7 cm withoutvascularity which most likely represents lipoma. Previously, this measured2.3 x 1.4 x 0.9 cm IMPRESSION: Area of clinical concern corresponds to a lipoma -------- FINAL REPORT -------- Dictated By: Nitza Anaya Dictated Date: 06/18/2025 09:48 ET Assigned Physician: Nitza Anaya Reviewed and Electronically Signed By: Nitza Anaya Signed Date: 06/18/2025 09:52 ET Workstation ID: [id number] Transcribed By: Self Edit Transcribed Date: 06/18/2025 09:48 ET us Idania De La Torre MD IM US PROCEDURES Final Result * (ABNORMAL) Lipid panel with reflex to direct LDL (02/26/2025 9:39 AM EDT) Cholesterol 212(H) 0 - 200 mg/dL LAB CHEMISTRY METHOD 02/26/2025 8:58 PM EDT [facility] Triglycerides 65 0 - 150 mg/dL LAB CHEMISTRY METHOD 02/26/2025 8:58 PM EDT [facility] HDL 59 >=40 mg/dL LAB CHEMISTRY METHOD 02/26/2025 8:58 PM EDT [facility] LDL Calculated 140(H) 0 - 100 mg/dL LAB CHEMISTRY METHOD 02/26/2025 8:58 PM EDT [facility] VLDL Cholesterol [place] 13 mg/dL LAB CHEMISTRY METHOD 02/26/2025 8:58 PM EDT [facility] Non HDL Chol. (LDL+VLDL) 153(H) <145 mg/dL LAB CHEMISTRY METHOD 02/26/2025 8:58 PM EDT [facility] Chol/HDL Ratio 3.6 0.0 - 4.4 LAB CHEMISTRY METHOD 02/26/2025 8:58 PM EDT [facility] Blood Venous blood specimen / Unknown Venipuncture / Unknown 02/26/2025 9:39 AM EDT 02/26/2025 9:39 AM EDT us Idania De La Torre MD LAB BLOOD ORDERABLES Final Resul t [facility] [address] [place] [address], [place] [phone] * MG Mammo Digital Screening w Otoniel [...] is recommended in 1 year. Mammo Location: [facility], [address] [place] [address], [address], . -------- FINAL REPORT -------- Dictated By: Ananth Miramontes Dictated Date: 01/24/2025 11:29 ET Assigned Physician: Ananth Miramontes Reviewed and Electronically Signed By: Ananth Miramontes Signed Date: 01/24/2025 11:37 ET Workstation ID: [id number] Transcribed By: Self Edit Transcribed Date: 01/24/2025 [...] is recommended in 1 year. Mammo Location: [facility], [address] [place] [address], [address], . -------- FINAL REPORT -------- Dictated By: Ananth Miramontes Dictated Date: 01/24/2025 11:29 ET Assigned Physician: Ananth Miramontes Reviewed and Electronically Signed By: Ananth Miramontes Signed Date: 01/24/2025 11:37 ET Workstation ID: [id number] Transcribed By: Self Edit Transcribed Date: 01/24/2025 11:29 ET Idania De La Torre MD IMG BI PROCEDURES Final Result * Cervical Cancer Screening: HPV (04/06/2023) Cervical Cancer Screening: HPV no interpreta tion,abstr acted [facility] Provider HEALTH MAINTENANCE Final Result * Colonoscopy (09/25/2021) Pathologist [facility] Colonoscopy no interpreta tion,abstr acted Anatomical Region Laterality Modality Other [facility] Provider HEALTH MAINTENANCE Final Result * HIV Screening (09/15/2013) Pathologist [facility] HIV Screening abstracted [facility] Provider HEALTH MAINTENANCE Final Result * Hepatitis C Screening (09/15/2013) Pathologist [facility] Hepatitis C Screening abstracted [facility] Provider HEALTH MAINTENANCE Final Result from Last 3 Months or Most Recently Relevant to Health Maintenance Additional Health Concerns Infection Onset Date Last Indicated ESBL 03/06/2025 03/06/[address] [facility] MEDICARE Member Subscriber Plan / Payer (Ef fective 2022-Present) Name:ARSENIO SHORT Relation to Subscriber:Self Name:Arsenio Short Payer ID:[id number] Group ID:[id number] Type:Not on file Address: [place] [address] [place] [address] Care Teams Philosophy Instructor Relationship Specialty Start Date End Date Idania eD La Torre MD [address] [place] [phone] PCP - General Internal Medicine 07/13/24
--- OUTSIDE RECORDS SUMMARY | 2025-08-23 10:45 | XMS_ITS | Encounter Summary ---
Author Organization [email or web address] Address [address] [place] [address] Care Team Providers Care Wax Pattern Coater Name Role Phone Idania De La Torre MD Primary Care Provider [phone] Encounter Details Date Type Department Care Team ([facility] st Contact Info) Description 06/19/2025 Results Follow-Up Adult Medicine [address] [phone] Idania De La Torre MD [address] [place] [address] Social History Tobacco Use Types Packs/Day Years [...] for your loved ones. For example, child development specialist or elderly care for an older [...] AM EDT Office Visit Orthopedic Surgery - [place] [address] [phone] Ignacio Alonzo, DPM 175 [facility] 250 [place] [address] 01/29/2026 9:20 AM EDT Appointment Radiology Department [address] [phone] 03/13/2026 9:30 AM EDT Office Visit Adult Medicine [address] [phone] Idania De La Torre MD [address] [place] [address] 05/20/2026 9:20 AM EDT Office Visit Gastroenterology - [address] [place] [address] Valerie Barr, [place] [address] [address] documented as of this encounter Visit Diagnoses Not on filedocumented in this encounter Additional Health Concerns Infection Onset Date Last Indicated Resolved Time ESBL 03/06/2025 03/06/2025 Assessment Noted Time PHQ-9 Depression Total Score: 18 06/04/ 025 3:18 PM EDT documented as of this encounter Care Teams Wax Pattern Coater Relationship Specialty Start Date End Date Idania De La Torre MD [address] [place] [address] PCP - General Internal Medicine 07/13/24 documented as of this encounter
== END 2025-08-23 10:30 | disposition home or self-care (01) ==
LOC: HO.RHES 09:22
PROVIDERS: PCP Internal Medicine; Visit Provider Student in an Organized Health Care Education/Training Program
DX: M79.7 Fibromyalgia (principal); M75.52 Bursitis of left shoulder
CPT/HCPCS: 99213; G2211

== ENCOUNTER → 2025-08-23 09:21 | Outpatient (BNVA) | payer OTHER, SELFPAY | PROVIDERS: PCP Internal Medicine; Visit Provider Student in an Organized Health Care Education/Training Program | DX: M79.7 Fibromyalgia (principal); M75.52 Bursitis of left shoulder | CPT/HCPCS: 99212 ==

== ENCOUNTER 2025-08-27 11:24 | Outpatient (AMB) | payer OTHER, SELFPAY ==
--- NOTE | 2025-08-27 11:33 | A.OFFVIS_ITS ---
Vital Signs 08/27/25 11:35 Height 4 ft 11 in Weight 151 lb BMI 30.5 BP 109/55 L Blood Pressure Location Lt brachial Position Sitting Respiration 16 Pulse 74 Pulse Source Pulse Oximeter Pulse Oximetry (%) 100 Oxygen Delivery Method Room Air Intake Visit Reasons: Botox Migraine Translation Director Required: No Broodmare Barn Groom: Broodmare Barn Groom Present Accompanied by: Vinicio Vincent Allergies oxcarbazepine (Trileptal) Allergy (Intermediate, Verified 08/27/25 11:38) hives sumatriptan (Imitrex) Allergy (Intermediate, Verified 08/27/25 11:38) increased heart rate venlafaxine Allergy (Intermediate, Verified 08/27/25 11:38) increased heart rate Cortisone Allergy (Intermediate, Uncoded 08/27/25 11:38) visual disturbance Relpax Allergy (Intermediate, Uncoded 08/27/25 11:38) throat swelling Medication List - Last Reconciled 08/27/25 by Anne Marie Willson LPN albuterol sulfate 90 mcg/actuation 2 puffs inhalation Q4H PRN bupropion HCl XL (Wellbutrin XL) 300 mg PO QAM bupropion HCl XL 150 mg PO QAM cetirizine 10 mg PO DAILY cholecalciferol (vitamin D3) 50 mcg PO DAILY diazepam 5 mg PO BID PRN diclofenac sodium 50 mg PO BID diclofenac sodium 1% topical dicyclomine 10 mg PO BID docusate sodium 100 mg PO BID estradiol 1 patch transdermal 2XW famotidine (Pepcid) 20 mg PO BEDTIME PRN fluticasone propionate 50 mcg/actuation 2 sprays intranasal DAILY PRN gabapentin 300 mg PO TID levothyroxine 50 mcg PO DAILY magnesium glycinate 100 mg PO TID metoclopramide HCl 10 mg PO TID PRN naltrexone 4.5 mg PO .nightly onabotulinumtoxinA (Botox) 200 units intradermal [id number] ondansetron HCl 4 mg PO Q8H PRN pantoprazole 20 mg PO BID plecanatide (Trulance) 3 mg PO DAILY progesterone micronized 100 mg PO QAM terbinafine HCl 250 mg PO DAILY tizanidine 4 mg PO BEDTIME PRN ubrogepant (Ubrelvy) mg PO HPI HPI Botox Migraine: Details: History of Present Illness The patient is a 50 year old female presenting for a follow-up visit for repeat Botox injections for chronic migraines. She received her last set of injections in April, which was her first time receiving them from this provider after a year-long pause in treatment due to a change in her previous doctor. Following the April injections, the patient experienced a significant reduction in her headaches for the first month and a half. Her headache frequency decreased from daily episodes to approximately two to three times per week, and the severity has also been reduced. However, the therapeutic effect has since waned, and she no longer experiences the same level of relief that allowed her to enjoy outdoor activities. Pain Description - Location: Headaches and neck pain. - Frequency: Headaches occur approximately 2-3 times per week, which is an improvement from daily headaches prior to her last Botox injection. - Severity: Current headaches are described as not severe. - Relieving Factors: Botox injections provide significant relief for approximately the first 1.5 months post-procedure. - Impact on Function: Previously, the pain relief allowed her to enjoy her day outside, but this is no longer the case as the effects of the last injection have worn off. Pain Management: - Analgesia: The patient receives Botox injections for migraine prophylaxis. - She reports her headache frequency has reduced from daily to 2-3 times per week, with less severity, following her last injection. - Adverse Effects: The patient reports an immediate sensation of heaviness in her shoulders post-injection. - Activities of Daily Living: She reports the treatment initially allowed her to enjoy her day, though this effect has diminished over time. [facility] Medical History (Updated 03/26/25 @ 10:30 by Renata Good CNP) Chronic tension type headache Migraine without aura Somatization disorder History of abnormal cervical Pap smear Anal fissure and fistula Fibromyalgia Surgical History Hx of tubal ligation H/O foot surgery Family History Father HTN (hypertension) Hypothyroid Diabetes Hyperlipidemia Mother HTN (hypertension) Diabetes Hyperlipidemia Social History Household Members: Children Housing: House Alcohol intake: never Patient Tobacco Use Status: Never used Tobacco Current occupational status: disabled Physical Exam Vital Signs: Last Vital Signs Pulse 74 08/27/25 11:35 Resp 16 08/27/25 11:35 BP 109/55 L 08/27/25 11:35 Pulse Ox 100 08/27/25 11:35 Oxygen Delivery Method Room Air 08/27/25 11:35 BMI result Body Mass Index 30.5 Office Procedures Botulinum toxin Injection Details: Chemodenervation of Scalp and Neck for Chronic Migraine (155 units as per protocol approved by FDA) After obtaining written consent, pre-procedure blood pressure and heart rate were stable and recorded in the nursing record. The patient was placed in the sitting position. Bilaterally, 31 points along felt machine mechanic (2 sites), procerus (1 site), frontalis (4 sites), temporalis (8 sites), occipitalis (6 sites), cervical paraspinals (4 sites), and trapezius (6 sites) were identified and prepped with alcohol. Using sterile technique, a 30 gauge 0.5 inch needle (for all sites other than trapezius) and 25 gauge 1.5 inch (for trapezius only) needle was introduced into each muscle and 5 units per site was injected. A total of 155 units were used. Aspirations were negative for blood, CSF and air prior to injection at all sites. The needle was removed, skin cleansed and a sterile bandage was applied where needed. The patient tolerated the procedure well and no complications were encountered. Following the procedure the patient's vital signs were stable. The patient was discharged home in good condition with post-procedural instructions. Time Out: Immediately prior to the procedure, the following was verbally confirmed that there is a signed consent form and that the correct patient, planned procedure, site and side are consistent with documentation and that necessary equipment and/or blood products are available prior to the start of the case. Complications: none EBL: <5 cc 28313 - Migraine Procedure code (CPT) selection complete Office Meds onabotulinumtoxinA 200 unit solution for injection Performing Provider: Griffin Timmons MD Performing Location: [facility] Administered by: Griffin Timmons MD on 08/27/25 11:57 Dose Route Admin Location Dispensed Lot Number Expiration Date [facility] Artificial [employer] Starcher 200 unit IM 155 ea [id number] 11/05/27 Total Dispensed Waste 155 ea 0 % Assessment & Plan Assessment & Plan (1) Migraine: Code(s): G43.909 - Migraine, unspecified, not intractable, without status migrainosus Category: Medical Plan Plan Patient was informed and verbally consented to the use of an ambient scribe for clinic note documentation during this visit. 1. Chronic Migraine, Without Aura, Not Intractable, Without Status Migrainosus - The patient has shown a positive but waning response to her previous Botox injections, with headache frequency currently at 2-3 times per week, reduced from daily. - Repeat Botox injections for migraine prophylaxis were administered during the visit. - The patient was instructed to follow up in 3 months for the next cycle of injections. Discussion Notes I discussed the patient's response to her last Botox treatment from April. She reported a good initial response, with headache frequency decreasing from daily to 2-3 times per week and a reduction in severity, but this benefit has been waning. We proceeded with repeat Botox injections for migraine prophylaxis. The patient tolerated the procedure well, reporting only a transient sensation of heaviness in the shoulders. The plan is to have her follow up in 3 months for her next scheduled injections. We also briefly discussed the patient's request for cosmetic Botox, which I declined to perform at this time. Patient Instructions - Please schedule a follow-up appointment in 3 months for your next set of Botox injections. Orders: Orders AMB Botulinum toxin Injection Today G43.909 - Migraine, unspecified, not intractable, without status migrainosus Coding Level of Care Code Procedure Only Diagnoses Migraine G43.909 CPT Codes Botox Injection - Botox 3: 37144 - Migraine ([id number])
[2025-08-27 11:35] VITALS: BP 109/55; PULSE 74; RESP 16; O2SAT 100; BMI 30.5
--- OUTSIDE RECORDS SUMMARY | 2025-08-27 14:35 | XMS_ITS | Encounter Summary ---
Author Organization [employer] Address [address] [place] [address] Care Team Providers Care Procurement Assistant Name Role Phone Idania De La Torre MD Primary Care Provider [phone] Encounter Details Date Type Department Care Team ([facility] [address] Contact Info) Description 07/26/2025 Results Follow-Up Adult Medicine [address] [phone] Idania De La Torre MD [address] [place] [address] Social History Tobacco Use Types Packs/Day Years [...] care for your loved ones. For example, manager child or elderly care for an older adult? [...] AM EDT Office Visit Orthopedic Surgery - [place] [address] [phone] Ignacio Alonzo, DPM 175 [facility] [address] [place] [address] 01/29/2026 9:20 AM EDT Appointment Radiology Department [address] [phone] 03/13/2026 9:30 AM EDT Office Visit Adult Medicine [address] [phone] Idania De La Torre MD [address] [place] [address] 05/20/2026 9:20 AM EDT Office Visit Gastroenterology - [address] [place] [address] Valerie Barr, [place] [address] [address] documented as of this encounter Visit Diagnoses Not on filedocumented in this encounter Additional Health Concerns Infection Onset Date Last Indicated Resolved Time ESBL 03/06/2025 03/06/2025 Assessment Noted Time PHQ-9 Depression Total Score: 18 06/04/ 025 3:18 PM EDT documented as of this encounter Care Teams Procurement Assistant Relationship Specialty Start Date End Date Idania De La Torre MD [address] [place] [address] PCP - General Internal Medicine 07/13/24 documented as of this encounter
--- OUTSIDE RECORDS SUMMARY | 2025-08-27 14:36 | XMS_ITS | Clinical Summary ---
Author Organization [facility] Address [address] [place] [address] Phone Care Team Providers Care Diamond Cutter Name Role Phone Idania De La Torre MD Primary Care Provider [phone] Allergies Active Allergy Reactions Criticality Noted Date [...] Papanicolaou smear of cervix and cervical HPV [facility] IMO Update Fall 2015 Encounters Date Type Department Care Team Description 08/13/2025 9:30 AM EST Office Visit Orthopedic Surgery - [address] [address] Ignacio Alonzo, DPM Dermatophytosis of nail (Primary Dx); Tinea pedis of left foot 07/26/2025 8:45 AM EST Lab Draw Station - [address] Migraine without aura and without status migrainosus, not intractable 07/26/2025 Results Follow-Up Adult Medicine [place] - [address] [phone] Idania De La Torre MD 06/19/2025 Results Follow-Up Adult Medicine [address] [phone] Idania De La Torre MD 06/18/2025 8:53 AM EDT - 06/18/2025 11:59 PM EDT Hospital Encounter Radiology Department - [address] [phone] Lump of skin of back Discharge Disposition: Home or Self Care 06/07/2025 Telephone Adult Medicine [address] [phone] Idania De La Torre MD 06/05/2025 10:00 AM EDT Office Visit Adult [address] [phone] Idania De La Torre MD Migraine without [...] Surgery Date Site/Laterality Comments BUNIONECTOMY 2001 PROCEDURE: [place] CORRJ HLX VLGS BNCTY SESMDC W/DOUBLE OSTEOTOMY; COMMENT: right FLEXIBLE SIGMOIDOSCOPY 05/26/2011 PROCEDURE: HISTORICAL FLEXIBLE SIGMOIDOSCOPY; COMMENT: ext hemorrhoidal tags x 2 OTHER SURGICAL HISTORY 07/18/2013 PROCEDURE: NUCLEAR EXAM OF STOMACH EMPTYING; COMMENT: [facility] - delayed liquid and solid material gastric emptying suggesting gastroparesis. COLONOSCOPY 01/28/2016 PROCEDURE: HISTORICAL COLONOSCOPY; COMMENT: normal UPPER GASTROINTESTINAL ENDOSCOPY 08/25/2013 PROCEDURE: MA UPPER GI ENDOSCOPY PERFORMED; COMMENT: normal on omeprazole treatment. UPPER GASTROINTESTINAL ENDOSCOPY 11/11/2005 PROCEDURE: MA UPPER GI ENDOSCOPY PERFORMED; COMMENT: Dr Horner - normal OTHER SURGICAL HISTORY PROCEDURE: MA HEMORRHOID NTRNL & XTRNL 1 COLUMN W/FISSURECTO; COMMENT: [facility] - Dr. Petty COLONOSCOPY 09/25/2021 PROCEDURE: HISTORICAL COLONOSCOPY; COMMENT: normal ESOPHAGOGASTRODUODENOSCOPY 01/08/2022 PROCEDURE: MA EGD TRANSORAL BIOPSY SINGLE/MULTIPLE; COMMENT: EGD normal including biopsy TUBAL LIGATION 11/24/2018 PROCEDURE: HISTORICAL TUBAL LIGATION BUNIONECTOMY 2001 Right PROCEDURE: BUNION SURGERY, SIMPLE REMOVAL ANKLE SURGERY 06/2023 Left PROCEDURE: HISTORICAL ANKLE SURGERY; COMMENT: ligament repair Medical History Medical History Date Comments Historical Medical DX 12/11/2009 DX:Abnorma l Pap smear and cervical HPV (human papillomavirus); COMMENT: [facility] Anxiety DX:Anxiety; COMM ENT: followed by psychiatrist/ therapist in [place] Esophageal reflux DX:Esophageal reflux Bipolar depression (CMS/HCC V24, CMS/HCC V28) DX:Bipolar depression (HCC); COMMENT: per patient, no records from psychiatrist Migraine DX:Migraine Fibromyalgia DX:Fibromyalgia; COMMENT: [facility] Dr. Morel at [place] Fracture of wrist 1982 DX:Fracture of wrist; COMMENT: left Tinnitus, right 05/25/2011 DX:Tinnitus, rig ht Gastroparesis 07/18/2013 DX:Gastroparesis ; COMMENT: Gastric emptying study completed at [facility], followed by GI at [place] History of Papanicolaou smea r of cervix DX:History of Papanicolaou s mear of cervix; COMMENT: folowed by [facility] SERVICE INSPECTOR, Bhavana Paulino Chronic headaches DX:Chronic hea daches; COMMENT: Followed by Dr. 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 Alonzo Fibromyalgia DX:Fibromyalgia Gastroparesis DX:Gastroparesis Cervical [...] AM EDT Office Visit Orthopedic Surgery - [place] 250 175 [facility] 250 [place] [phone] Ignacio Alonzo, DPM [address] [phone] 01/29/2026 9:20 AM EDT Appointment Radiology Department - [address] [phone] 03/13/2026 9:30 AM EDT Office Visit [place] Medicine [place] - [address] [phone] Idania De La Torre MD [address] [place] [address] 05/20/2026 9:20 AM EDT Office Visit Gastroenterology - [address] [facility] [address] [place] [address] Valerie Barr, [place] [address] [address] Health Maintenance Due Date Last Done Comments [...] 133 - 145 mmol/L 07/26/2025 11:56 AM [facility] Potassium 4.5 3.5 - 5.5 mmol/L 07/26/2025 11:56 AM [facility] Chloride 102 96 - 110 mmol/L 07/26/2025 11:56 AM [facility] CO2 28 21 - 32 mmol/L 07/26/2025 11:56 AM [facility] Anion Gap 9 3 - 11 07/26/2025 11:56 AM [facility] Glucose 88 70 - 100 mg/dL 07/26/2025 11:56 AM [facility] BUN 18 5 - 25 mg/dL 07/26/2025 11:56 AM [facility] Creatinine 0.82 0.50 - 1.10 mg/dL 07/26/2025 11:56 AM [facility] eGFR 87 >=60 mL/min/1. 73m2 07/26/2025 11:56 AM [facility] Comment:Calculation based on the Chronic Kidney Disease Epidemiology Collaboration (CKD-EPI) equation refit without adjustment for race. BUN/Creatinine Ratio 22.0 07/26/2025 11:56 AM EST [facility] Calcium 9.2 8.5 - 10.5 mg/dL 07/26/2025 11:56 AM EST [facility] Blood Venous blood specimen / Unknown Venipuncture / Unknown 07/26/2025 8:45 AM EST 07/26/2025 8:45 AM EST us Idania De La Torre MD LAB BLOOD ORDERABLES Final Resul t [facility] ([facility]) [facility] [address] [place] [address], [place] [phone] * US Abdomen Limited (06/18/2025 9:08 AM EDT) Anatomical Region Laterality Modality Body Ultrasound 06/18/2025 9:48 AM EDT Impressions 06/18/2025 9:52 AM EDT Area of clinical concern corresponds to a lipoma -------- FINAL REPORT -------- Dictated By: Nitza Anaya Dictated Date: 06/18/2025 09:48 ET Assigned Physician: Nitza Anaya Reviewed and Electronically Signed By: Nitza Anaya Signed Date: 06/18/2025 09:52 ET Workstation ID: [id number] Transcribed By: Self Edit Transcribed Date: 06/18/2025 [...] Signed Date: 06/18/2025 09:52 ET Workstation ID: [id number] Transcribed By: Self Edit Transcribed Date: 06/18/2025 09:48 ET us Idania De La Torre MD IM US PROCEDURES Final Result * (ABNORMAL) Lipid panel with reflex to direct LDL (02/26/2025 9:39 AM EDT) Cholesterol 212(H) 0 - 200 mg/dL LAB CHEMISTRY METHOD 02/26/2025 8:58 PM EDT [facility] Triglycerides 65 0 - 150 mg/dL LAB CHEMISTRY METHOD 02/26/2025 8:58 PM EDT [facility] HDL 59 >=40 mg/dL LAB CHEMISTRY METHOD 02/26/2025 8:58 PM EDT [facility] LDL Calculated 140(H) 0 - 100 mg/dL LAB CHEMISTRY METHOD 02/26/2025 8:58 PM EDT [facility] VLDL Cholesterol [place] 13 mg/dL LAB CHEMISTRY METHOD 02/26/2025 8:58 PM EDT [facility] Non HDL Chol. (LDL+VLDL) 153(H) <145 mg/dL LAB CHEMISTRY METHOD 02/26/2025 8:58 PM EDT [facility] Chol/HDL Ratio 3.6 0.0 - 4.4 LAB CHEMISTRY METHOD 02/26/2025 8:58 PM EDT [facility] Blood Venous blood specimen / Unknown Venipuncture / Unknown 02/26/2025 9:39 AM EDT 02/26/2025 9:39 AM EDT us Idania De La Torre MD LAB BLOOD ORDERABLES Final Resul t [facility] [address] [place] [address], [place] [phone] * MG Mammo Digital Screening w Otoniel [...] is recommended in 1 year. Mammo Location: [facility], [address] [place] [address], [address], . -------- FINAL REPORT -------- Dictated By: Ananth Miramontes Dictated Date: 01/24/2025 11:29 ET Assigned Physician: Ananth Miramontes Reviewed and Electronically Signed By: Ananth Miramontes Signed Date: 01/24/2025 11:37 ET Workstation ID: [id number] Transcribed By: Self Edit Transcribed Date: 01/24/2025 [...] is recommended in 1 year. Mammo Location: [facility], [address] [place] [address], [address], . -------- FINAL REPORT -------- Dictated By: Ananth Miramontes Dictated Date: 01/24/2025 11:29 ET Assigned Physician: Ananth Miramontes Reviewed and Electronically Signed By: Ananth Miramontes Signed Date: 01/24/2025 11:37 ET Workstation ID: [id number] Transcribed By: Self Edit Transcribed Date: 01/24/2025 11:29 ET Idania De La Torre MD IMG BI PROCEDURES Final Result * Cervical Cancer Screening: HPV (04/06/2023) Cervical Cancer Screening: HPV no interpreta tion,abstr acted [facility] Provider HEALTH MAINTENANCE Final Result * Colonoscopy (09/25/2021) Pathologist [facility] Colonoscopy no interpreta tion,abstr acted Anatomical Region Laterality Modality Other [facility] Provider HEALTH MAINTENANCE Final Result * HIV Screening (09/15/2013) Pathologist [facility] HIV Screening abstracted [facility] Provider HEALTH MAINTENANCE Final Result * Hepatitis C Screening (09/15/2013) Pathologist [facility] Hepatitis C Screening abstracted [facility] Provider HEALTH MAINTENANCE Final Result from Last 3 Months or Most Recently Relevant to Health Maintenance Additional Health Concerns Infection Onset Date Last Indicated ESBL 03/06/2025 03/06/2025 Insurance [facility] MEDICARE Member Subscriber Plan / Payer (Ef fective 2022-Present) Name:ARSENIO SHORT Relation to Subscriber:Self Name:Arsenio Short Payer ID:[id number] Group ID:[id number] Type:Not on file Address: [place] [address] [place] [address] Care Teams Diamond Cutter Relationship Specialty Start Date End Date Idania De La Torre MD [address] [place] [phone] PCP - General Internal Medicine 07/13/24
== END 2025-08-27 11:58 | disposition home or self-care (01) ==
LOC: HO.PMC 11:25
PROVIDERS: PCP Internal Medicine; Visit Provider Internal Medicine
DX: G43.909 Migraine, unspecified, not intractable, without status migrainosus (principal)
CPT/HCPCS: 64615

== ENCOUNTER → 2025-08-27 11:24 | Outpatient (BNVA) | payer OTHER, SELFPAY | PROVIDERS: PCP Internal Medicine; Visit Provider Internal Medicine | DX: G43.909 Migraine, unspecified, not intractable, without status migrainosus (principal) | CPT/HCPCS: 64615; J0585 ==